=== PATIENT | female | born 1935 | race Caucasian/White ===

== ENCOUNTER 2018-04-11 19:43 | Emergency (ER) | payer MEDICARE, OTHER ==
[~2018-04-11] VITALS: Ht 160 cm; Wt 52.2 kg
[~2018-04-11 19:43] MED LIST: PREDNISONE20 MG PO
[2018-04-11] MEDS ORDERED: ALBUTEROL0.63 MG/3 INH (20:00)
[2018-04-11] MEDS ORDERED: LEVO-T25 MCG PO (20:01)
[2018-04-11] MEDS ORDERED: IPRAT-ALBUT 0.5-3 ML INH (20:02)
[2018-04-11] MEDS ORDERED: ADVAIR 250-501 EACH (20:02)
[2018-04-11] MEDS ORDERED: ADULT ASPIRIN81 MG PO (20:03)
[2018-04-11] MEDS ORDERED: VITAMIN D31000 UNIT PO (20:03)
[2018-04-11] MEDS ORDERED: VENTOLIN HFA18 GM INH (20:04)
[2018-04-11] MEDS ORDERED: LEVAQUIN500 MG PO (21:59)
[2018-04-11] MEDS ORDERED: PREDNISONE20 MG PO (21:59)
--- NOTE | 2018-04-12 07:12 | EKG ---
[facility] [address] [facility] [place] [address] Signed Normal sinus rhythm Biatrial enlargement Pulmonary disease pattern Abnormal ECG When compared with ECG of 21-FEB-2017 21:32, No significant change was found Confirmed by JOSÉ ANTONIO MENDEZ MD ([id number]) on 04/12/2018 7:12:26 AM Electronically Signed By: JOSÉ ANTONIO MENDEZ MD 04/12/18711 PATIENT NAME: FEDERICA MCCLELLAN Electrocardiogram DATE OF : 39 PHYSICIAN: JOSÉ ANTONIO MENDEZ MD REPORT #: [id number] REPORT IS CONFIDENTIAL AND NOT TO BE RELEASED WITHOUT AUTHORIZATION
== END 2018-04-11 22:30 | disposition home or self-care (01) ==
LOC: ED 19:43
DX: J44.1 Chronic obstructive pulmonary disease with (acute) exacerbation (principal); J44.0 Chronic obstructive pulmonary disease with (acute) lower respiratory infection; J20.9 Acute bronchitis, unspecified; Z87.891 Personal history of nicotine dependence; Z88.0 Allergy status to penicillin; Z88.8 Allergy status to other drugs, medicaments and biological substances; Z79.899 Other long term (current) drug therapy; Z79.82 Long term (current) use of aspirin; Z79.51 Long term (current) use of inhaled steroids
CPT/HCPCS: 71045; 80053; 83735; 84484; 85025; 93005; 93010; 94640; 96374; 99284; J2930

== ENCOUNTER 2019-04-20 05:27 | Emergency (ER) | payer MEDICARE, OTHER ==
[~2019-04-20] VITALS: Ht 162.6 cm; Wt 53.1 kg
[~2019-04-20 05:27] MED LIST changes: +ADULT ASPIRIN81 MG PO; +ADVAIR 250-501 EACH; +ALBUTEROL0.63 MG/3 INH; +IPRAT-ALBUT 0.5-3 ML INH; +LEVAQUIN500 MG PO; +LEVO-T25 MCG PO; +VENTOLIN HFA18 GM INH; +VITAMIN D31000 UNIT PO
== END 2019-04-20 07:45 | disposition home or self-care (01) ==
LOC: ED 05:27
DX: M54.5 Low back pain (principal); Z87.891 Personal history of nicotine dependence; Z90.49 Acquired absence of other specified parts of digestive tract; Z90.710 Acquired absence of both cervix and uterus; Z88.8 Allergy status to other drugs, medicaments and biological substances; Z88.6 Allergy status to analgesic agent; Z88.0 Allergy status to penicillin; Z79.899 Other long term (current) drug therapy; X58.XXXA Exposure to other specified factors, initial encounter
CPT/HCPCS: 72100; 81001; 99284-25

== ENCOUNTER 2019-10-24 18:36 | Emergency (ER) | payer MEDICARE, OTHER ==
[~2019-10-24] VITALS: Ht 162.6 cm; Wt 53.1 kg
[2019-10-24] MEDS ORDERED: CIPRO500 MG PO (20:51)
[2019-10-24] MEDS ORDERED: NORCO 5-325 TA1 EACH PO (20:51)
== END 2019-10-24 21:00 | disposition home or self-care (01) ==
LOC: ED 18:36
DX: N39.0 Urinary tract infection, site not specified (principal); R10.9 Unspecified abdominal pain; Z88.6 Allergy status to analgesic agent; Z88.0 Allergy status to penicillin; Z88.8 Allergy status to other drugs, medicaments and biological substances; Z79.899 Other long term (current) drug therapy; Z79.82 Long term (current) use of aspirin
CPT/HCPCS: 74176; 80053; 81001; 85025; 87077; 87088; 87186; 96374; 96375; 99284-25; J1170; J2405

== ENCOUNTER 2019-11-04 16:55 | Inpatient (IN) | payer MEDICARE, OTHER ==
[~2019-11-04] VITALS: Ht 162.6 cm; Wt 52.8 kg
[~2019-11-04 16:55] MED LIST changes: +ADULT ASPIRIN R81 MG PO; -ADULT ASPIRIN81 MG PO; -ADVAIR 250-501 EACH; +ADVAIR 250-501 EACH PO; +CIPRO500 MG PO; +LEVO-T25 MCG; -LEVO-T25 MCG PO; +NORCO 5-325 TA1 EACH PO
--- OUTSIDE RECORDS SUMMARY | 2019-11-04 16:58 | XMS ---
PreManage Notification: FEDERICA MCCLELLAN Security Appellate [address] Judge Events No recent Security Events currently on file CRITERIA MET - [facility] - 2 Visits in 30 Days CARE PROVIDERS There are no care providers on record at this time. Susu has no Care Guidelines for this patient. Ashish VISIT COUNT (12 MO.) [address] [facility] TOTAL 3 NOTE: Visits indicate total known visits. ED/C VISIT TRACKING (12 MO.) 11/04/2019 16:[address] [facility] [place] TYPE: Emergency COMPLAINT: - SOB 10/24/2019 18:37 [facility] [place] TYPE: Emergency COMPLAINT: - ABDOMINAL PAIN/CONSTIPATION DIAGNOSES: - Allergy status to analgesic agent status - Low back pain - Unspecified abdominal pain - Allergy status to penicillin - Other terminologist (current) drug therapy - Urinary tract infection, site not specified - Allergy status to oth drug/meds/biol subst status - senior living (current) use of aspirin 04/20/2019 05:27 [facility] [place] TYPE: Emergency COMPLAINT: - LOWER BACK PAIN NON INJURY DIAGNOSES: - Personal history of nicotine dependence - Acquired absence of both cervix and uterus - Allergy status to analgesic agent status - Allergy status to oth drug/meds/biol subst status - Other jail (current) drug therapy - Low back pain - Acquired absence of other specified parts of digestive tract - Exposure to other specified factors, initial encounter - Allergy status to penicillin INPATIENT VISIT TRACKING (12 MO.) No inpatient visits to display in this time frame [id number]
--- NOTE | 2019-11-04 21:00 | NUR ---
PT ADMITTED TO ROOM 122, A/O, REQUIRED STAFF TO PULL HER OVER D/T SOB ON EXERTION. IS ACCOMPAINED BY DAUGHTER RUPERT. PT USES 2L O2 CHRONICALLY, CURRENTLY ON 3L, STATES SHE WAS DOING HER NORMAL ROUTINE, TIL 11 AM TODAY, THEN BECAUSE SOB, DID RESCUE INHALERS, WITH NO HELP. CAME TO ED VIA AMBULANCE. PT IS FROM [place], LIVES ALONE, AND HAS FAMILY SUPPORT NEEDED. WEARS INCONT PRODUCTS, STATES SOMETIMES URINE COMES WITHOUT EVEN KNOWNING IT. HAS A MOIST NONPRODUCTIVE COUGH, QUIT SMOKING 12 YEARS AGO. HOB, AND FEET ELEVATED TO PT CHOICE. EDUCATED TO CALL LIGHT.
--- NOTE | 2019-11-04 22:38 | NUR ---
ASSISTED PT TO BSC, REQUIRED FREQUENT REST BREAKS DUE TO INCREASE OF SOB. ABLE TO SELF TRANSFER TO AND FROM COMMODE, CLEAN SELF WELL ADJUST CLOTHING. AGAIN, REQUIRED FREQUENT REST BREAKS PRIOR TO SETTLING INTO HER BED. CALL LIGHT WITHIN REACH. REFUSED FOOD UPON ADMISSION, DID REQUEST AND RECEIVE TYLENOL FOR HEADACHE.
--- NOTE | 2019-11-04 22:48 | NUR ---
ASSESSMENT COMPLETED. PT HAS A SMALL DIME SIZE ABRASION TO HER MID BACK ON HER SPINE. 2X2 ALLEVYN PLACED TO HER BACK. PT HAS NO REQUESTS AT THIS TIME. EDUCATED TO USE HER CALL LIGHT IF NEEDING ASSISTANCE OUT OF BED OR HER DEPENDS CHANGED. PT STATES UNDERSTANDING. PT GIVEN CALL LIGHT.
--- NOTE | 2019-11-05 00:15 | NUR ---
PT RESTING IN BED WITH EYES CLOSED. RESP EVEN AND UNLABORED. PT WEARING 3L VIA NC OF O2. BED RAILS UP, CALL LIGHT WITHIN REACH.
--- NOTE | 2019-11-05 01:08 | NUR ---
SHIFT REPORT RECIEVED FROM ANGELITO JAIME. PT RESTING IN BED, EYES CLOSED. RR 18, EVEN, UNLABORED. NC @ 3L. CALL LIGHT IN REACH.
--- NOTE | 2019-11-05 01:43 | NUR ---
PT CALLS TO USE BSC. UP TO BSC AND BACK TO BED. NC @ 3L. NO THER NEEDS, CALL LIGHT IN REACH.
--- NOTE | 2019-11-05 02:45 | NUR ---
ASSESSMENT, VS AND I&O COMPLETED. ICE WATER PROVIDED BY SONJA BOLANOS. LUNGS CLEAR. NC @3L. IV FLUIDS INFUSING PER ORDER. NO OTHER NEEDS, CALL LIGHT IN REACH.
--- NOTE | 2019-11-05 04:00 | NUR ---
PT RESTING IN BED, EYES CLOSED. RR 16, EVEN, UNLABORED. CALL LIGHT IN REACH.
--- NOTE | 2019-11-05 06:16 | NUR ---
PT AWAKE IN ROOM. SCHEDULED MED PROVIDED. NO OTHER NEEDS AT THIS TIME. CALL LIGHT IN REACH.
--- NOTE | 2019-11-05 07:35 | NUR ---
0708: Report recieved from Nai JAIME. Pt sleeping with her call gabriel within reach. Pt has NC o2 on at 3l at this time.
--- NOTE | 2019-11-05 07:45 | NUR ---
PATIENT UP TO BSC THEN TO CHAIR FOR BREAKFAST. HANDS AND FACE WASHED. CALL BUTTON IN REACH. LINENS CHANGED. NO OTHER NEEDS AT THIS TIME.
--- NOTE | 2019-11-05 08:06 | NUR ---
PT SITTING UP IN HER CHAIR RECEIVING A BREATHING TREATMENT. SHE STATES THAT HER BREATHING IS FEELING MUCH BETTER, AND THAT SHE SHE STILL FEELS WEAK BUT THAT IS ALSO IMPROVING. SHE DENIES ANY NEW PROBLEMS AT THIS TIME. CALL MACKENZIE WITHIN REACH AND SHE IS NOW WATCHING TV.
--- NOTE | 2019-11-05 11:20 | NUR ---
DISCUSSED COPD WITH PT. SHE STATES UNDERSTANDING OF HER DISEASE PROCESS, SHE STATES THAT IF SHE HAD HAD THE MEDICATIONS SHE NEEDED AT HOME SHE WOULD NEVER HAD TO COME TO THE HOSPITAL, HOPEFULLY, SHE STATED. PT SAID SHE WOULD BE INTERESTED IN THE CARDIOPULMONARY REHAB PROGRAM TO HELP INCREASE HER ACTIVITY AND HELP HER WITH BREATHING TECHNIQUES ETC. PT STATED SHE HAS NEVER SEEN THE MAGNET WITH THE ZONES ON IT. WE WENT OVER THE MAGNET IN DEPTH AND TALKED ABOUT HOW WE WILL BE ASKING HER WHAT ZONE SHE FEELS LIKE SHE IS IN. PT STATED UNDERSTANDING OF THIS. I TALKED WITH DR BURCH ABOUT HER PARTICIPATING IN THE CARDIOPULM REHAB AND HE ALSO THINKS THIS WOULD BE A GOOD PROGRAM FOR HER AND HE SAID HE WOULD WRITE THE ORDERS FOR THIS.
--- NOTE | 2019-11-05 11:25 | NUR ---
IV ATTEMEPT STARTED TO THE RIGHT FA AND THE SITE BLEW. OREDER GIVEN TO LEAVE THE FIELD START IN PLACE.
[2019-11-05] MEDS ORDERED: PROBIOTIC1 EAC1 PO (11:26)
--- NOTE | 2019-11-05 11:28 | NUR ---
Med rec completed.
--- NOTE | 2019-11-05 11:43 | NUR ---
PT AMBULATED TO THE BR WITH AN ASSIST ON 3L OF O2. AFTER HAVING A BM SHE WALKED BACK TO BED. SHE WAS STEADY ON HER FEET BUT HER RR IS INCREASED, SAT UPON RETURNING IS 90% AND AFTER A FEW MINUTES IS INCREASING. PT NOW WATCHING TV.
--- NOTE | 2019-11-05 13:15 | NUR ---
PT JUST VISITED WITH DR BURCH REGARDING HER CONDITION AND SHE STATES SHE FEELS BETTER AFTER SPEAKING WITH HIM. SHE STATES HER LARGEST CONCERN IS "MY LITTLE DOG". PT LIVES ALONE BUT STATES HER FAMILY IS ABLE TO HELP HER AND IS NOW WATCHING HER DOG. LUNG SOUNDS DECREASED THROUGHOUT AND HER RR IS 24 AT REST AND SHE STATES HER BREATHING FEELS LIKE IT IS IMPROVING. CALL MACKENZIE WITHIN REACH.
--- NOTE | 2019-11-05 13:59 | NUR ---
CICI SAMANTHA HAD JUST COME FROM PTS' RM AND SAID SHE IS READY FOR A NAP. I QUICKLY ENTERED HER RM ON HER APPROVAL AND INTRO MYSELF AND SAID I WILL RETURN AND LET HER REST. PT REQUESTED PRAYER BEFORE I LEFT. WILL FOLLOW NEEDED
--- NOTE | 2019-11-05 14:57 | NUR ---
PT RESTING IN HER BED WITH THE HOB ELEVATED AND SHE STATES HER BREATHING FEELS ABOUT THE SAME. SHE DENIES ANY NEW PROBLEMS. PT ASSISTED TO THE BR AND VOIDED AND IS NOW BACK TO BED. HER RR INCREASED TO 28 WITH ACTIVITY.
--- NOTE | 2019-11-05 15:41 | NUR ---
In and spoke with pt for assessment. Pt lives alone in [place]. Daughter lives 1.5 blocks away. Face times patient several times a day on [address]. Pt completes household tasks, cooks, and drives. Pt plans on discharging to home when able. Has Wc, walker, can, raised toilet seat, states she does not use or need any DME.
--- NOTE | 2019-11-05 16:44 | NUR ---
PT RESTING AT THE BEDSIDE AND SHE STATES HER SOB IS "GETTING BETTER". SHE DENIES ANY OTHER PROBLEMS AT THIS TIME.
--- NOTE | 2019-11-05 17:41 | NUR ---
PT VISITING WITH HER FAMILY AND SHE DENIES ANY NEW PROBLEMS.
--- NOTE | 2019-11-05 19:20 | NUR ---
SHIFT REPORT RECIEVED FROM CANDI JAIME. PT AWAKE IN ROOM, WATCHING TV. NC @ 3L. NO SOB REPORTED. PILLOW PROVIDED UNDER FEET PER PT REQUEST. NO OTHER NEEDS AT THIS TIME. CALL LIGHT IN REACH.
--- NOTE | 2019-11-05 19:28 | EKG ---
[facility] [address] [facility] [place] [address] Signed Sinus tachycardia Right atrial enlargement Rightward axis Pulmonary disease pattern Abnormal ECG When compared with ECG of 11-APR-2018 19:50, T wave inversion no longer evident in Anterior leads Confirmed by JEIMY BURCH MD ([id number]) on 11/05/2019 7:27:52 PM Electronically Signed By: JEIMY BURCH MD 11/05/19 1928 PATIENT NAME: FEDERICA MCCLELLAN Electrocardiogram DATE OF : 39 PHYSICIAN: JEIMY BURCH MD REPORT #: [id number] REPORT IS CONFIDENTIAL AND NOT TO BE RELEASED WITHOUT AUTHORIZATION
--- NOTE | 2019-11-05 20:32 | NUR ---
HELPED PT FROM THE BATHROOM TO HER BED. BEDSIDE TABLE AND CALL LIGHT IN REACH. VITALS AND I&OS DONE AND CHARTED. FRESH ICE WATER GIVEN.
--- NOTE | 2019-11-05 22:58 | NUR ---
ASSESSMENT COMPLETED. SCHEDULED MEDICATION PROVIDED. PT UP TO BR AND BACK TO BED. IV CDI, WNL, FLUSHED WELL. LUNG SOUNDS CLEAR. NC @3L. CAPILLARY REFILL <3 SECONDS. SKIN WPD. NO OTHER NEEDS AT THIS TIME. CALL LIGHT IN REACH.
--- NOTE | 2019-11-06 00:12 | NUR ---
HELPED PT TO THE BATHROOM AND BACK TO BED. BEDSIDE TABLE AND CALL LIGHT IN REACH. PT NEEDS NOTHING MORE AT THIS TIME.
--- NOTE | 2019-11-06 01:24 | NUR ---
PT CALLS TO USE THE BR. UP TO BR, SBA. BACK TO BED. IV MEDICATION RESUMED WITH NEW IV PLACED BY FRANCIA JAIME. ICE WATER PROVIDED. NO OTHER NEEDS, CALL LIGHT IN REACH.
--- NOTE | 2019-11-06 01:49 | NUR ---
IV PUMP ALARMING. IV MEDICATION COMPLETE. IV SALINE LOCKED. PT REPORTS 5/10 HEADACHE. PRN PAIN MED PROVIDED. NO OTHER NEEDS. CALL LIGHT IN REACH.
--- NOTE | 2019-11-06 02:41 | NUR ---
PT RESTING IN BED, EYES CLOSED. RR 18, EVEN, UNLABORED. CALL LIGHT IN REACH.
--- NOTE | 2019-11-06 05:09 | NUR ---
PT RESTING IN BED, EYES CLOSED. RR 18, EVEN, UNLABORED. CALL LIGHT IN REACH.
--- NOTE | 2019-11-06 06:46 | NUR ---
PT HAS SLEPT OFF AND ON THIS SHIFT. NEW IV PLACED IN RIGHT HAND, CDI, WNL, FLUSHED WELL. PT TOLERATED IV MEDICATIONS WELL. NC @ 3L, SPO2 TRENDING IN LOW TO MID 90S. LUNG SOUNDS CLEAR IN ALL LOBES AND DIMINISHED IN BILATERAL LOWER LOBES. PT COMPLAINED OF ELLIS THAT WAS RESOLVED WITH PRN PAIN MED. PT IS 1PA, SBA TO BR. SHE STILL EXHIBITS MILD SOB WITH ACTIVITY. CAPILARY REFIL < 3 SECONDS, SKIN WPD. UO SUFFICIENT, VSS. A&OX4, GCS 15.
--- NOTE | 2019-11-06 06:47 | NUR ---
ASSESSMENT COMPLETED. SCHEDULED MED PROVIDED. NO OTHER NEEDS AT THIS TIME. CALL LIGHT IN REACH.
--- NOTE | 2019-11-06 07:15 | NUR ---
REPORT RECEIVED FROM [facility] SHIFT RN. PT IN BED. 3L NC IN [place]. RESPIRAITONS EQUAL. CALL LIGHT IN REACH.
--- NOTE | 2019-11-06 10:16 | NUR ---
STAND BY GUARD TO BATHROOM INDEPENDENTLY. 3L NC IN PLACE. PT WITH SOME LABORED BREATHING WITH ACTIVITY. BACK TO BED, PT REPORTS SHE DID NOT SLEEP WELL LAST NIGHT. LUNGS DIM IN THE BASES WITH SMALL AMOUNT OF FINE CRACKLES. CALL LIGHT AND PERSONAL ITEMS AND CALL LIGHT IN REACH.
--- NOTE | 2019-11-06 12:00 | NUR ---
DR BURCH IN TO ROUND ON PT. PLAN OF CARE DISCUSSED. SBA TO CHAIR FOR LUNCH. 3L NC IN PLACE. ACCESSORY MUSCLES USED WITH BREATHING. RR 20. BREATHING TREATMENT ADMINISTERED.
--- NOTE | 2019-11-06 14:57 | NUR ---
Attempted to see pt x 2 and she is on the phone both visits. Will see her tomorrow.
--- NOTE | 2019-11-06 15:35 | NUR ---
PHYSICAL THERAPY IN TO EVALUATE PT.
--- NOTE | 2019-11-06 17:00 | NUR ---
PT SITTING UP WITH DINNER. DENIES NEEDS OR PAIN. CALL LIGHT IN REACH.
--- NOTE | 2019-11-06 20:00 | NUR ---
PATIENT RESTING IN BED WATCHING TV AT THIS TIME AND HAS NO CURRENT NEEDS. WILL BE BACK TO ASSESS. CALL LIGHT IN REACH, WATER IN REACH. PATIENT'S DOOR AND CURTAIN LEFT OPEN AT HER REQUEST.
--- NOTE | 2019-11-06 21:43 | NUR ---
VITALS AND I&OS DONE AND CHARTED. FRESH ICE WATER AND LOTION GIVEN PER PT REQUEST. BEDSIDE TABLE AND CALL LIGHT IN REACH.
--- NOTE | 2019-11-06 22:48 | NUR ---
HELPED PT TO THE BATHROOM AND BACK TO BED. BEDSIDE TABLE AND CALL LIGHT IN REACH. PT NEEDS NOTHING MORE AT THIS TIME.
--- NOTE | 2019-11-07 01:03 | NUR ---
PATIENT RESTING QUIETLY ON HER 3L/NC IN SEMI FOWLERS POSITION, DOOR AND CURTAIN OPEN AT PATIENT REQUEST. EYES CLOSED, RESPIRATIONS REGULAR AND EVEN AND CALL LIGHT AND PO FLUIDS IN REACH.
--- NOTE | 2019-11-07 02:43 | NUR ---
PATIENT RESTING QUIETLY ON HER 3/L NC IN HI-FOLERS POSITION TURNED TO HER RIGHT, EYES CLOSED, RESPIRATIONS REGULAR AND EVEN, CALL LIGHT IN REACH.
--- NOTE | 2019-11-07 04:45 | NUR ---
PATIENT HAS RESTED WELL MOST OF THE NIGHT WITH NO C/O PAIN ON HER 3L/NC. PATIENT HAD ME REMOVE DRESSING FROM HER BACK IT WAS GETTING REALLY ITCHY AND THERE WAS JUST SOME SLIGHT REDNESS UNDERNEATH THE DRESSING. PATIENT SL FLUSHES WELL. PATIENT TRYS TO BE VERY INDEPENDANT, BUT CALLS APPROPRIATELY SO THERE IS SOMEONE IN THE ROOM WHEN SHE USES THE RESTROOM. PATIENT WAS SITTING UP ON THE SIDE OF THE BED READING AFTER JUST WALKING HER TO THE 1PSBA TO THE BATHROOM AND BACK. CALL LIGHT IN REACH.
--- NOTE | 2019-11-07 07:10 | NUR ---
Recieved report. Patient lying in bed alert and oriented with daughter in room. Patient reported sleeping well overnight. Saline locked, call light in reach.
--- NOTE | 2019-11-07 09:30 | NUR ---
PATIENT WITH STAFF AT THIS TIME. WILL RETURN LATER.
--- NOTE | 2019-11-07 10:27 | NUR ---
PT IS ON 3L OF O2. PT HAD NEB TREATMENT @ 0745. PT DID NOT EAT MUCH BREAKFAST. MADE PT'S BED WHILE PT READ NEWPAPER IN CHAIR. PT TOLERTATED SHOWER WELL. PT' VS WERE STABLE ORERED PT LUNCH. PT IS BACK IN BED, CALL LIGHT NEAR BY.
--- NOTE | 2019-11-07 10:30 | NUR ---
ASSESSMENT COMPLETED. LUNGS TIGHT WITH SOME EXW. PT IS ALERT AND ORIENTED, DENIES PAIN, 3L NC IN PLACE.
--- NOTE | 2019-11-07 12:00 | NUR ---
PT WORKING WITH PHYSICAL THERAPY. ABLE TO AMBULATE [address]ES[address] 3L NC IN PLACE. PT BACK TO BED. LUNCH AT BEDSIDE. CALL LIGTH IN REACH.
--- NOTE | 2019-11-07 12:28 | NUR ---
PT SITTING IN CHAIR, TALKING ON PHONE PT REQUESTED A COME BACK LATER. WILL FOLLOW NEEDED
--- NOTE | 2019-11-07 14:30 | NUR ---
PT IN BED WATCHING TV. DENIES SOB. 3L NC IN PLACE CALL LIGHT IN REACH.
--- NOTE | 2019-11-07 17:00 | NUR ---
PT SITTING UP IN BED EATING DINNER. CALL LIGHT IN REACH. DENEIS NEEDS.
--- NOTE | 2019-11-07 18:45 | NUR ---
PT HAD GOOD DAY. ON CHRON 3L NC. NEB TREATMENTS SCHEDULED. WORKING WELL WITH PT. UO QS.
--- NOTE | 2019-11-07 20:24 | NUR ---
PATIENT IV PAIN FULL AND LEAKING WHEN FLUSHED, CALLED AND VERBAL ORDERS GIVEN TO TAKE OUT IV AND LEAVE IT OUT. THIS WAS DONE.
--- NOTE | 2019-11-07 22:30 | NUR ---
ROOM SERVICE FOOD SERVER ROUNDING NOTE. PT UP TO BATHROOM AND BACK TO BED WITH SBA. TOLERATED WELL. DENIES QUESTIONS OR CONCERNS AT THIS TIME. CALL LIGHT IN REACH. WHITE BOARD UPDATED
--- NOTE | 2019-11-07 22:30 | NUR ---
TRACTOR DRIVER TEAMSTER TOOK PATIENT 1PSBA TO THE REST ROOM AND BACK TO BED PER CHARGE NURSES REPORT.
--- NOTE | 2019-11-07 23:41 | NUR ---
PATIENT RESTING QUIETLY IN HIGH FOWLERS POSITION ON HER 3L/NC, EYES CLOSED, RESPIRATIONS REGULAR AND EVEN. WATER AND CALL LIGHT IN REACH.
--- NOTE | 2019-11-08 02:00 | NUR ---
PATIENT RESTING QUIETLY, EYES CLOSED, ON 3L/NC AND RESPIRATIONS REGULAR AND EVEN. CALL LIGHT IN REACH.
--- NOTE | 2019-11-08 04:15 | NUR ---
PATIENT RESTING QUIETLY ON HER 3L/NC, EYES CLOSED, RESPIRATIONS REGULAR AND EVEN. CALL LIGHT IN REACH.
--- NOTE | 2019-11-08 06:00 | NUR ---
PATIENT AWAKE HAS VOIDED WELL THOUGH THE NIGHT ORDERS GIVENTO LEAVE IV OUT AT BEGINING OF SHIFT FROM WHEN IV STARTED LEAKING. PATIENT SAYS SHE HAD A GOOD NIGHT AND A GOOD NIGHTS SLEEP.
--- NOTE | 2019-11-08 07:59 | NUR ---
Patient sitting up in bed alert and oriented talking to daughter on phone. Patient reports sleeping well through the night. Discussed with patient getting up to chair for breakfast.
--- NOTE | 2019-11-08 10:30 | NUR ---
Patient up in chair visiting with daughter and son-in-law and finishing breakfast. Patient on 3L NC, sats 94% Call light in reach.
--- NOTE | 2019-11-08 12:20 | NUR ---
Patient up in bed completing NEB treatment. Bed rails up and call light within reach.
--- NOTE | 2019-11-08 14:00 | NUR ---
pt sitting up in bed, 3l nc in place. alert and oriented. call light in reach. enies needs.
--- NOTE | 2019-11-08 16:00 | NUR ---
PT SITTING IN BED, 3L NC IN PLACE. DENIES NEEDS. CALL LIGHT IN [facility]
--- NOTE | 2019-11-08 19:30 | NUR ---
PATIENT SITTING QUIETLY IN BED WATCHING TV WITH NO NEEDS AT THIS TIME. CALL LIGHT IN REACH.
--- NOTE | 2019-11-08 20:29 | NUR ---
COAGULATING DRYING SUPERVISOR ROUNDING NOTE. PT ASSISTED TO THE BATHROOM, WOULD LIKE TIME IN THE BATHROOM. AGREES TO USE CALL LIGHT IN BATHROOM WHEN SHE IS FINISHED. DENIES FURTHER QUESTIONS, CONCERNS, OR NEEDS AT THIS TIME. CALL LIGHT IN REACH.
--- NOTE | 2019-11-08 23:00 | NUR ---
PATIENT RESTING QUIETLY, EYES CLOSED, RESPIRATIONS REGULAR AND EVEN, CALL LIGHT IN REACH.
--- NOTE | 2019-11-09 00:52 | NUR ---
PATIENT RESTING QUIETLY IN SEMI-FOWLERS POSITION, EYES CLOSED, RESPIRATIONS SHALLOW, BUT REGULAR ON HER 3L/NC. CALL LIGHT IN REACH.
--- NOTE | 2019-11-09 02:36 | NUR ---
PATIENT RESTING QUIETLY, ON LEFT SIDE AND RESPIRATIONS ARE REGULAR AND EVEN, EYES CLOSED, AND CALL LIGHT IN REACH.
--- NOTE | 2019-11-09 05:00 | NUR ---
PATIENT SAYS SHE DIDN'T SLEEP WELL TONIGHT SHE DID LAST NIGHT, JUST COULDN'T GET TO SLEEP, ALTHOUGH SHE APPEARED TO BE SLEEPING MULTIPLE TIMES WHEN I CHECKED ON HER LAST NIGHT. PATIENT IS PLANNING ON GOING HOME TODAY AND SHE REMAINS WITHOUT AN IV AND ON HER CHRONIC 3L/NC FOR 02 SUPPORT. CALL LIGHT IN REACH AND WATER GLASS IN REACH.
--- NOTE | 2019-11-09 07:39 | NUR ---
PAtient lying in bed with eyes open. Patient on RA, SATS above 94. Bed alarm activated and call light within reach.
--- NOTE | 2019-11-09 07:41 | NUR ---
PAtient sitting up in bed using tablet. 3L NC, denies pain. Call light in reach. Denies needs.
--- NOTE | 2019-11-09 07:46 | NUR ---
patient is awake, recieving breathing treatment from RT now, patient expected to DC home today
[2019-11-09] MEDS ORDERED: BUDESONIDE0.5 MG/2 M INH (11:43)
[2019-11-09] MEDS ORDERED: CEFUROXIME500 MG PO (11:43)
--- NOTE | 2019-11-09 12:30 | NUR ---
Patient sitting on edge of bed eating lunch. States that lower back pain has improved with medication (tylenol). States that she is feeling less anxious than reported earlier in the morning. Patient attributes anxiety to elevated blood pressure readings. Nurse reassured patient that elevated readings were not concerning to physician which helped ease anxieties. PAtient reciening 3L O2 NC. Call light within reach. Patient awaiting potential discharge orders.
--- NOTE | 2019-11-09 13:44 | NUR ---
NOTIFIED JOSUÉ WITH RESPIRATORY THERAPY OF PT DISCHARGE AND PHARMACY JADON.
--- NOTE | 2019-11-10 13:16 | NUR ---
FAXED PT, OT, NURSING ORDERS ALONG WITH H&P, DISCHARGE SUMMARY, PT AND OT EVAL TO [facility]. FAX WAS NOT GOING THRU TO [facility]. SCANNED DOCUMENTS AND SENT SECURE EMAIL TO SUZY NOLASCO, AND MIKEY AT [facility]. CHW CALLED AND SPOKE WITH MIKE AT [facility] [phone] SHE STATED SHE DID RECEIVE THE SECURE EMAIL. SHE WOULD CALL BACK IF SHE HAD ANY PROBLEMS OPENING THE EMAIL. WAS LEAVING FOR HER LUNCH, AND WAS CURRENTLY LOCKED OUT OF HER SECURE EMAIL LOGIN.
== END 2019-11-09 14:10 | disposition home health service (06) | DRG 193 ==
LOC: ED 16:55 → MS 16:56
PROVIDERS: ADMIT Internal Medicine
DX: J15.4 Pneumonia due to other streptococci (principal); J96.21 Acute and chronic respiratory failure with hypoxia; J44.0 Chronic obstructive pulmonary disease with (acute) lower respiratory infection; R65.10 Systemic inflammatory response syndrome (SIRS) of non-infectious origin without acute organ dysfunction; J44.1 Chronic obstructive pulmonary disease with (acute) exacerbation; I10 Essential (primary) hypertension; E03.9 Hypothyroidism, unspecified; Z66 Do not resuscitate; Z99.81 Dependence on supplemental oxygen; Z87.891 Personal history of nicotine dependence; Z88.0 Allergy status to penicillin; Z88.8 Allergy status to other drugs, medicaments and biological substances; Z79.82 Long term (current) use of aspirin; Z79.51 Long term (current) use of inhaled steroids; Z79.899 Other long term (current) drug therapy
CPT/HCPCS: 36415; 51701; 71045; 80053; 81001; 83605; 84484; 85025; 85379; 87502; 93005; 93010; 94640; 94667; 94668; 94760; 97110; 97116; 97162; 97165; 99285-25; J0456; J0696; J1650; J7060; J7121

== ENCOUNTER 2020-05-29 15:52 | Emergency (ER) | payer MEDICARE, OTHER ==
[~2020-05-29] VITALS: Ht 162.6 cm; Wt 52.6 kg
[~2020-05-29 15:52] MED LIST changes: +BUDESONIDE0.5 MG/2 M INH; +CEFUROXIME500 MG PO; +PROBIOTIC1 EAC1 PO
[2020-05-29] MEDS ORDERED: POTASSIUM CHLO10 ME1 PO (16:06)
[2020-05-29] MEDS ORDERED: FLUTICASONE-SA1 EAC4 INH (16:06)
[2020-05-29] MEDS ORDERED: FUROSEMIDE20 MG PO (16:06)
--- NOTE | 2020-05-30 21:21 | EKG ---
[facility] [address] [facility] [place] [address] Signed Suspect arm lead reversal, interpretation assumes no reversal Normal sinus rhythm Biatrial enlargement Rightward axis Pulmonary disease pattern Abnormal ECG When compared with ECG of 04-NOV-2019 17:12, T wave amplitude has decreased in Anterior leads T wave amplitude has increased in Lateral leads Confirmed by JEIMY BURCH MD ([id number]) on 05/30/2020 9:21:36 PM Electronically Signed By: JEIMY BURCH MD 05/30/202120 PATIENT NAME: EFREM MCCLELLAN Electrocardiogram DATE OF : 39 PHYSICIAN: JEIMY BURCH MD REPORT #: [id number] REPORT IS CONFIDENTIAL AND NOT TO BE RELEASED WITHOUT AUTHORIZATION
== END 2020-05-29 19:31 | disposition home or self-care (01) ==
LOC: ED 15:52
DX: R10.9 Unspecified abdominal pain (principal); J44.9 Chronic obstructive pulmonary disease, unspecified; Z99.81 Dependence on supplemental oxygen; Z87.891 Personal history of nicotine dependence; Z88.6 Allergy status to analgesic agent; Z88.8 Allergy status to other drugs, medicaments and biological substances; Z88.0 Allergy status to penicillin; Z79.899 Other long term (current) drug therapy; Z79.82 Long term (current) use of aspirin
CPT/HCPCS: 74177; 80053; 81001; 83690; 85025; 93005; 93010; 96375; 99284-25; J1170; J2405; J7040

== ENCOUNTER 2021-03-21 13:42 | Emergency (ER) | payer MEDICARE, OTHER ==
[~2021-03-21] VITALS: Ht 162.6 cm; Wt 45.4 kg
[~2021-03-21 13:42] MED LIST changes: +FLUTICASONE-SA1 EAC4 INH; +FUROSEMIDE20 MG PO; +POTASSIUM CHLO10 ME1 PO
== END 2021-03-21 17:39 | disposition home or self-care (01) ==
LOC: ED 13:42
DX: R13.10 Dysphagia, unspecified (principal); J44.9 Chronic obstructive pulmonary disease, unspecified; Z87.891 Personal history of nicotine dependence; Z88.6 Allergy status to analgesic agent; Z88.0 Allergy status to penicillin; Z88.8 Allergy status to other drugs, medicaments and biological substances; Z79.899 Other long term (current) drug therapy; Z79.52 Long term (current) use of systemic steroids
CPT/HCPCS: 70491; 71260; 80048; 99284-25; Q9967

== ENCOUNTER 2022-06-16 11:33 | Inpatient (IN) | payer MEDICARE, OTHER ==
[~2022-06-16] VITALS: Ht 162.6 cm; Wt 41.5 kg
[~2022-06-16 11:33] MED LIST changes: -LEVO-T25 MCG; +LEVO-T25 MCG PO; -VITAMIN D31000 UNIT PO; +VITAMIN D325 MCG PO
--- NOTE | 2022-06-17 07:34 | EKG ---
[facility] [address] [facility] [place] [address] Signed Normal sinus rhythm Right atrial enlargement Borderline ECG No previous ECGs available Confirmed by JOSÉ ANTONIO MENDEZ MD ([id number]) on 06/17/2022 7:34:38 AM Electronically Signed By: JOSÉ ANTONIO MENDEZ MD 06/17/22 0734 PATIENT NAME: EFREM MCCLELLAN LAI Electrocardiogram DATE OF : 39 PHYSICIAN: JOSÉ ANTONIO MENDEZ MD REPORT #: [id number] REPORT IS CONFIDENTIAL AND NOT TO BE RELEASED WITHOUT AUTHORIZATION
[2022-06-18] MEDS ORDERED: FLONASE ALLERG9.9 ML NAS (11:22)
[2022-06-18] MEDS ORDERED: MULTI VITAMIN1 EACH PO (11:23)
[2022-06-18] MEDS ORDERED: VITAMIN C250 M1 PO (11:23)
[2022-06-20] MEDS ORDERED: LEVETIRACETAM500 MG PO (16:13)
== END 2022-06-21 13:00 | DRG 66 ==
LOC: ED 11:33 → MS 20:12
PROVIDERS: ADMIT Internal Medicine; ATTEND Internal Medicine
DX: I62.01 Nontraumatic acute subdural hemorrhage (principal); I60.9 Nontraumatic subarachnoid hemorrhage, unspecified; J44.9 Chronic obstructive pulmonary disease, unspecified; Z99.81 Dependence on supplemental oxygen; E03.9 Hypothyroidism, unspecified; G83.14 Monoplegia of lower limb affecting left nondominant side; Z66 Do not resuscitate; Z88.0 Allergy status to penicillin; Z88.8 Allergy status to other drugs, medicaments and biological substances; Z90.710 Acquired absence of both cervix and uterus; Z85.828 Personal history of other malignant neoplasm of skin; Z96.643 Presence of artificial hip joint, bilateral; Z79.899 Other long term (current) drug therapy; Z79.82 Long term (current) use of aspirin; Z79.51 Long term (current) use of inhaled steroids; Z20.822 Contact with and (suspected) exposure to COVID-19
CPT/HCPCS: 36415; 70450; 70496; 70498; 71045; 73502; 80048; 80053; 81001; 83735; 84100; 84484; 85025; 85610; 85730; 87088; 87186; 87502; 92610; 94640; 94760; 97110; 97162; 97166; 97530; 97535; A9270; C9803; J0696; J1953; J3480; Q9967; U0003

== ENCOUNTER 2022-09-19 07:47 | Day surgery (SDC) | payer MEDICARE, OTHER ==
[~2022-09-19] VITALS: Ht 162.6 cm; Wt 42.7 kg
[~2022-09-19 07:47] MED LIST changes: +FLONASE ALLERG9.9 ML NAS; +LEVETIRACETAM500 MG PO; +MULTI VITAMIN1 EACH PO; +VITAMIN C250 M1 PO
--- NOTE | 2022-09-19 10:27 | NUR ---
1006: PATIENT BACK IN DAY SURGERY DIRECTLY FROM OR. VS CHECKED. PATIENT DENIES PAIN AT SURGICAL SITE. LEFT NOSE SURGICAL SITE WNL. OINTMENT COVERING STITCHES. NO DRESSING. DAUGHTER AT BEDSIDE. CALL LIGHT WITHIN REACH. 1015: WATER GIVEN TO PATIENT. 1024: DISCHARGE INSTRUCTIONS GIVEN TO PATIENT AND DAUGHTER. DAUGHTER ASSISTING PATIENT TO GET DRESSED.
--- NOTE | 2022-09-19 10:38 | NUR ---
1037: PATIENT DRESSED AND READY TO GO. DISCHARGED TO HOME VIA PERSONAL WHEELCHAIR WITH DAUGHTER.
--- NOTE | 2022-09-19 17:08 | OR ---
[facility] [address] [place], [place] [address] Signed DATE OF OPERATION: 09/19/2022 SURGEON: Hair Neff MD PREOPERATIVE DIAGNOSIS: Left nasal skin lesion. POSTOPERATIVE DIAGNOSIS: Left nasal skin lesion. PROCEDURE: Excision of left nasal skin lesion with complex closure. ANESTHESIA: Local standby. PREOPERATIVE HISTORY: Beulah is an 87-year-old young lady with ulcerated crusted lesion on the left nasal skin just above the ala. This is very suspicious for neoplasia and she is taken to the operating room for the above-mentioned procedure. OPERATIVE PROCEDURE AND FINDINGS: After informed consent, the patient was taken to the operating room, placed in a semi-sitting position. Monitoring was performed. The patient and procedure were verified. The left nasal skin was prepped with Betadine, sterile drapes. The lesion in question was just above the alar rim measured about cm in greatest dimension, extending along the alar rim. After sterile prep and drape, 1% lidocaine with epi was injected in a field type block, a total of 2 mL. Excision was then performed with margins elliptical in an anterior-posterior direction. The lesion appeared to be completely removed. There was a separate satellite lesion about 2 mm in dimensions above towards the midline of the nose above the excision site. This was not included in the excision. The wound edges were elevated to allow for a tension free closure. Hemostasis was obtained with needle point cautery after turning off the nasal cannula oxygen. Hemostasis was verified. The wound was then closed with 4-0 interrupted Vicryl subcu and 5-0 running nylon on the skin. Excellent cosmetic closure was obtained. Hemostasis was verified. Neosporin was applied after cleansing the skin. The patient was then transported back to same day in good condition. No complications. BLOOD LOSS: Minimal. Electronically Signed By: HAIR NEFF MD 09/19/22 8959 PATIENT NAME: MCCLELLANBEULAH OPERATIVE REPORT DATE OF : 39 REPORT #: [id number] PHYSICIAN: HAIR NEFF MD PCP: CURTIS CARLOS REPORT IS CONFIDENTIAL AND NOT TO BE RELEASED WITHOUT AUTHORIZATION [address] [address] Signed SPECIMEN: To pathology was with a suture in the superior margin. Hair Neff MD /MODL /[id number] Copies: ~ Electronically Signed By: HAIR NEFF MD 09/19/22 1708 PATIENT NAME: BEULAH MCCLELLAN OPERATIVE REPORT DATE OF : 39 REPORT #: [id number] PHYSICIAN: HAIR NEFF MD PCP: CURTIS CARLOS REPORT IS CONFIDENTIAL AND NOT TO BE RELEASED WITHOUT AUTHORIZATION
--- NOTE | 2022-09-21 12:55 | PATH ---
[facility] [place] [facility] [address], [place] [address] Signed SPECIMEN(S): A LEFT NASAL SPECIMEN SOURCE: A. LEFT NASAL CLINICAL HISTORY: Left nasal skin lesion FINAL PATHOLOGIC DIAGNOSIS: Left nasal: - Basal cell carcinoma, nodular-type, transected at the peripheral and deep surgical margins. - See comment. COMMENT: The tumor extends to all of the peripheral surgical margins including the end cuts and focally extends to the deep lateral margin in the mid 12-3-6 o'clock edge. JVR:[id number] MICROSCOPIC EXAMINATION: Histologic sections of all submitted blocks are examined by light microscopy. These findings, together with the gross examination, support the pathologic diagnosis. GROSS DESCRIPTION: The specimen, labeled and designated "Beulah Zhou A" and designated on the requisition as "left nasal skin lesion stitch hurley superior margin"," is received in formalin and consists of a somewhat ellipsoid, ragged, bumpy, roman-white to brown, 1.2 x 0.7 x 0.5 cm skin ellipse that is oriented with a suture along 1 white edge designated "superior". For the purpose of this dictation the sutures are currently designated 9:00. The specimen is inked as follows: 12:00-3:00-6:00 = blue; 6:00-9:00 = red; 9:00-4:00 = green. The skin surface is markedly ragged and bumpy but without a discrete mass/lesion. The specimen is sectioned from 12:00 to 6:00 to reveal homogenous, yellow, grossly unremarkable subcutaneous tissue. The specimen is submitted entirely as follows: Cassette Summary: (A1) tips (A2) remaining specimen PATIENT NAME: BEULAH ZHOU PATHOLOGY DATE OF : 39 REPORT #: [id number] PHYSICIAN: LEANNE CABELLO PCP: CURTIS CARLOS REPORT IS CONFIDENTIAL AND NOT TO BE RELEASED WITHOUT AUTHORIZATION [facility] [address], [place] [address] Signed AI (under the direct supervision of a pathologist) 09/20/2022 The Gross Description was prepared using a voice recognition system. The report was reviewed for accuracy; however, sound-alike word errors, addition and/or deletions may occur. If there is any question about this report, please contact Client Services. PERFORMING LABORATORY: The technical component was performed by [facility], [address] [place] [address] (CLIA# [id number]). Professional interpretation was performed by [facility], [address] [place] [id number] (CLIA#: [id number]). Diagnostician: Lars Galvez MD Pathologist Electronically Signed 09/21/2022 Copies: ~ PATIENT NAME: BEULAH ZHOU PATHOLOGY DATE OF : 39 REPORT #: [id number] PHYSICIAN: LEANNE CABELLO PCP: CURTIS CARLOS REPORT IS CONFIDENTIAL AND NOT TO BE RELEASED WITHOUT AUTHORIZATION
== END 2022-09-19 10:37 | disposition home or self-care (01) ==
LOC: OPS 07:47 → DS 07:47 → OPS 09:00
PROVIDERS: ATTEND Otolaryngology
PROC: 0HB1XZZ Excision of Face Skin, External Approach (ICD-10-PCS; principal; 2022-09-19 09:00)
DX: C44.311 Basal cell carcinoma of skin of nose (principal); Z88.0 Allergy status to penicillin; E03.9 Hypothyroidism, unspecified; J44.9 Chronic obstructive pulmonary disease, unspecified
CPT/HCPCS: 88305

== ENCOUNTER 2022-12-20 07:44 | Inpatient (IN) | payer MEDICARE, OTHER ==
[~2022-12-20] VITALS: Ht 162.6 cm; Wt 40.9 kg
[2022-12-20] MEDS ORDERED: LASIX20 MG PO (08:43)
[2022-12-20] MEDS ORDERED: POTASSIUM CHLO10 MEQ PO (08:44)
--- NOTE | 2022-12-20 09:45 | NUR ---
BEDSIDE REPORT RECIEVED AT THIS TIME IN THE ER WITH RN RASHMI. TWO NURSE SKIN ASSESSMENT COMPLETED AT THIS TIME. PT TRANSPORTED TO CCU BY THIS RN ON MACHINE WORKER AND 3 L O2 NC. PT DAUGHTER WITH PT FOR TRANSPORT. PT TRANSFERED FROM STRETCHER TO BED BY TWO RNS WITH SLIDER SHEET WELL TOLERATED.
--- NOTE | 2022-12-20 10:45 | NUR ---
ADMISSION ASSESSMENT COMPLETED. PT ALERT AND ORIENTED X4, ANSWERING ALL QUESTIONS APPROPRIATELY. TIGHTNESS AND EXPIRATORY WHEEZE NOTED UPON LUNG AUSCULTATION. PT'S RESPIRATIONS IN THE MID 20S AT REST. PT REPORTS STILL FEELING SHORT OF BREATH AND ANXIETY ABOUT FALLING ASLEEP BECAUSE SHE IS AFRAID. THERAPEUTIC COMMUNICATION AT THIS TIME. PT HAS BRUISING ON BILATERAL ARMS AND LEGS AND REDNESS ON COCCYX. SECONDARY TWO NURSE SKIN ASSESSMENT COMPLETED WITH YENI MCCLELLAN. PERICARE PROVIDED AT THIS TIME AND CLEAN DEPENDS IN PLACE. LEFT FOREARM IV INFILTRATED. NEW IV STARTED AT THIS TIME ON LATERAL SIDE OF LEFT WRIST. PT REMAINS IN SINUS TACHYCARDIA. PLAN OF CARE ESTABLISHED WITH PT AND DAUGHTER. CALL LIGHT WITHIN REACH. WILL CONTINUE TO CLOSELY MONITOR.
--- NOTE | 2022-12-20 11:30 | NUR ---
DR BURCH IN ROOM AT THIS TIME TO ASSESS PT. ADMISSION ORDERS RECEIVED AT THIS TIME.
--- NOTE | 2022-12-20 12:37 | NUR ---
IV FLUIDS AND MAGNESIUM NOW INFUSING. PT HEART RATE 100-105 AT REST/ S[P2 = 96% ON 3 L NC. PT'S SHORTNESS OF BREATH LESS VISIBLE. MILD STERNAL RETRACTIONS NOTED. CALL LIGHT WITHIN REACH. WILL CONTINUE TO MONITOR.
--- NOTE | 2022-12-20 14:32 | NUR ---
PATIENT SITTING IN BED WATCHING TV, BRIEF CHECKED, STILL DRY, NO URGE TO URINATE. RN AWARE. CALL LIGHT IN EASY REACH
--- NOTE | 2022-12-20 14:44 | NUR ---
PT ALERT, ORIENTED AND LAYING IN BED WATCHING TV. PT PLEASANT, THANKED ME FOR COMING BY. EACH BREATH IS A STRUGGLE. GAVE ENCOURAGEMENT, PT REQUESTED I "PUT IN A GOOD WORD FOR HER TO THE MAN UPSTAIRS". HAD PRAYER WITH PT, GAVE UMU AND TAMELA. WILL FOLLOW
--- NOTE | 2022-12-20 15:00 | NUR ---
BLADDER SCAN USED, 200ML NOTED. RN AWARE.
--- NOTE | 2022-12-20 15:11 | NUR ---
PT REPOSITIONED IN BED. DENIES THE NEED TO VOID. DEPENDS DRY. IV FLUIDS, CALL LIGHT WITHIN REACH. NO FURTHER NEEDS AT THIS TIME.
--- NOTE | 2022-12-20 15:34 | NUR ---
PATIENT WAS INCONTINENT 100ML OF URINE, BRIEF WEIGHED AND CHARTED.
--- NOTE | 2022-12-20 15:51 | NUR ---
REPORT GIVEN TO YENI ALMONTE ON THE MEDICAL FLOOR AT THIS TIME. PT TRANSPORTED TO THE MEDICAL FLOOR. ALL BELONGINGS SENT HOME WITH DAUGHTER PRIOR TO PT'S TRANSFER TO THE MEDICAL FLOOR.
[2022-12-20] MEDS ORDERED: ADULT LOW DOSE81 MG PO (16:04)
--- NOTE | 2022-12-20 16:20 | NUR ---
pt settled in to room 122 from ccu - oriented to call light and remote - menu provided and vitals taken.
--- NOTE | 2022-12-20 16:44 | EKG ---
[facility] [address] [facility] [place] [address] Signed Sinus tachycardia Biatrial enlargement Rightward axis Pulmonary disease pattern Abnormal ECG When compared with ECG of 16-JUN-2022 15:40, T wave amplitude has decreased in Lateral leads Confirmed by JEIMY BURCH MD ([id number]) on 12/20/2022 4:44:49 PM Electronically Signed By: JEIMY BURCH MD 12/20/22 1644 PATIENT NAME: VYEFREM HOYT Electrocardiogram DATE OF : 39 PHYSICIAN: JEIMY BURCH MD REPORT #: [id number] REPORT IS CONFIDENTIAL AND NOT TO BE RELEASED WITHOUT AUTHORIZATION
--- NOTE | 2022-12-20 16:50 | NUR ---
Spoke with pt, her daughter Yajaira, and pts grandson. Pt currently living with her son and daughter in law. Pt states she injured her leg last Oct and moved in with her son. She uses 02 from [employer], walker, cane, shower chair, and a BSC. She would like a CG but states she does not have the money and is over income for assistance through the state. Her daughter in law is currently provide care for both the pt and her mother. Let her know I will contact [employer] and have them call her. They do have some cg assistance, but there is a wait list. Pt plans on dc to home when cleared medically. Denies need for any more DME.
--- NOTE | 2022-12-20 17:26 | NUR ---
pt daughter in law jen called for update on pt. Jen is the primary caregiver for this pt and also her elderly mother both. at this time pt is visiting with family and dc funeral planner in room with this rn.
--- NOTE | 2022-12-20 17:33 | NUR ---
Medications reconciled pharmacy records and patient daughter's notes
--- NOTE | 2022-12-20 19:05 | NUR ---
REPORT RECEIVED FROM SUZY Santos RN. CICI HASSAN IN ROOM ASSISTING PT TO RESTROOM. NO NEEDS FROM THIS RN AT THIS TIME.
--- NOTE | 2022-12-20 19:26 | NUR ---
IN WITH SUZY Santos RN. PT LAYING IN BED WATCHING TV. PT NC FOUND TO NOT BE ON PT. PULSE OX USED TO SPOT CHECK PTs O2. O2 SATS AT 88% ON RA. PLACED NC BACK ON PT AND O2 SATS INCREASE TO 92% ON 2L. PT DENIES ANY OTHER NEEDS AT THIS TIME. CALL LIGHT IN REACH.
--- NOTE | 2022-12-20 20:10 | NUR ---
IN TO COMPLETE VITALS AND I&Os. VITALS AND I&Os COMPLETE. ASSESSMENT COMPLETE. LUNG SOUNDS DIMINISHED IN RUL, RLL AND LLL. CLEAR IN GANGA. LLL COARSE. BOWEL TONES ACTIVE. PT DENIES ANY PAIN AT THIS TIME. SCATTERED BRUISING NOTED TO BUE. RIGHT FOOT BRUISING NOTED. NAVEED DRY BILATERAL SHINS NOTED. PT INCONTINENT OF URINE. REY CARE PROVIDED. NEW ATTENDS IN PLACE. PT DENIES ANY OTHER NEEDS AT THIS TIME. CALL LIGHT IN REACH.
--- NOTE | 2022-12-20 21:12 | NUR ---
THIS RN CALLED DR. BURCH TO VERIFY MEDICATION ORDER. VERIFIED WITH DR. BURCH MEDICATION IS BEING DOSED BY PHARMACY. NO NEW ORDERS AT THIS TIME.
--- NOTE | 2022-12-21 00:36 | NUR ---
SPOT CHECK O2 SATS PTs RR IS 26. O2 SATS AT 97% ON 3L NC. PT RESTING AND APPEARS COMFORTABLE. RR EVEN AND UNLABORED. PT AWAKENS WHEN O2 SATS ARE CHECKED. PT STATES "I JUST WANT TO REST" WHEN ASKED IF PT WOULD LIKE SCHEDULED NEB TX. PT DENIES ANY OTHER NEEDS AT THIS TIME. CALL LIGHT IN REACH.
--- NOTE | 2022-12-21 02:15 | NUR ---
IN TO COMPLETE VITALS AND I&Os. ASSESSMENT COMPLETE. LUNG SOUNDS CLEAR IN GANGA. DIMINISHED IN LLL, RLL AND RUL. CRACKLES IN RUL HEARD. BOWEL TONES ACTIVE. PT DENIES PAIN AT THIS TIME. PT INCONTINENT OF URINE. VITALS AND I&Os COMPLETE. PT REQUESTING WATER, WATER PROVIDED. PT DENIES ANY OTHER NEEDS AT THIS TIME. CALL LIGHT IN REACH.
--- NOTE | 2022-12-21 04:08 | NUR ---
IN IV PUMP ALARMING, RESOLVED. NEW BAG OF FLUIDS STARTED, SEE MAR. PT LAYING IN BED WITH EYES CLOSED. RR EVEN AND UNLABORED. CALL LIGHT IN REACH. NO OTHER NEEDS IDENTIFIED AT THIS TIME.
--- NOTE | 2022-12-21 05:46 | NUR ---
IN TO ADMINISTER MEDICATION, SEE MAR. PT REPORTS NO PAIN AT THIS TIME. VITALS AND I&Os COMPLETE. PT INCONTINENT OF URINE. PT DENIES ANY OTHER NEEDS AT THIS TIME. CALL LIGHT IN REACH.
--- NOTE | 2022-12-21 06:46 | NUR ---
IN TO ROUND ON PT. PT SITTING UP IN BED AND STATES "CAN WE MOVE THESE PILLOWS OR SOMETHING MY BACK IS STARTING TO HURT." SAT PTs HOB UP MORE AND PT STATES "THAT IS A LITTLE BETTER, WE WILL TRY THAT." PT DENIES ANY OTHER NEEDS AT THIS TIME. CALL LIGHT IN REACH.
--- NOTE | 2022-12-21 07:00 | NUR ---
bedside report from emilee vera, pt resting resp even eyes closed, light in reach.
--- NOTE | 2022-12-21 09:10 | NUR ---
PT VITALS/I&0'S TAKEN/DOCUMENTED. REPOSITINED PT. REFILLED WATER. LIGHTS ON. PT ANXIOUS ABOUT HAVING TO HAVE A BM IN HER BED. I ASSURED HER IT WAS OK WE WILL CLEAN HER UP AND GET HER SITUATED. TOLD HER TO JUST CALL WHEN SHE FELT SHE NEEDED TO HAVE A BM AND WE WILL ASSESS THE SITUATION WITH HER BREATHING AND BEING ABLE TO GET UP TO THE COMMODE. SHE AGREED. PT A LITTLE TEARFUL DUE TO EMBARASSEMENT BUT AGAIN REASSURED HER IT WOULD BE FINE. PT TABLES AT BESIDE W/CALL LIGHT.
--- NOTE | 2022-12-21 11:43 | NUR ---
INTO CHECK ON PATIENT, PATIENT AWAKE WATCHING TV. WHEN ASKED HOW SHE IS DOING THE PATIENT STATES " I WISH I COULD GET THIS SHAKY FEELING OUT OF ME." DISCUSSED THAT THE FEELING COULD BE DUE TO RECENT BREATHING TREATMENTS OR HER RECVING STERIODS. PATIENT GOES ON TO DISCRIBE A FEELING OF OVERALL WEAKNESS. ADVISED THAT A PT EVLUATION WAS DISCUSSED IN THE AM MEETING AND DR. BURCH WOULD BE PUTTING IN THE ORDER. PATIENT REQUEST JUAN RINCON GIVEN. NO FURTHER QUESTIONS OR CONCERNS FROM PATIENT AT THIS TIME.
--- NOTE | 2022-12-21 12:19 | NUR ---
PT RESTING IN BED, AWAKENS EASILY - LUNCH AT SIDE, INUSLIN GIVEN - CONTINUES TO COUGH UP AND OUT THICK DARK SPUTUM. CT WNL
--- NOTE | 2022-12-21 14:36 | NUR ---
PT ALERT, ORIENTED AND FEELS SHE IS IMPROVING. PTS' COLOR IS BETTER, EACH BREATH ISN'T MUCH OF A STRUGGLE. MENTIONED HOW MUCH SHE ENJOYS HER P.SHAWL AND FAVORABLE COMMENTS FROM VISITORS. GAVE ENCOURAGEMENT AND WILL FOLLOW
--- NOTE | 2022-12-21 19:15 | NUR ---
REPORT RECEIVED FROM YENI ALMONTE. PT LAYING IN BED SEMI-FOWLERS. PT DENIES ANY NEED AT THIS TIME. CALL LIGHT IN REACH.
--- NOTE | 2022-12-21 20:06 | NUR ---
IN TO ROUND ON PT. PT SITTING UP IN BED. PT RESPONDS WHEN ADDRESSED. ASSESSMENT COMPLETE. LUNG SOUNDS DIMINISHED IN RUL, RLL, AND LLL. CLEAR IN GANGA. BOWEL TONES ACTIVE. PT DENIES PAIN AT THIS TIME. PT INCONTINENT OF URINE. REY CARE PROVIDED. NEW ATTENDS IN PLACE. PT REQUESTING NEB TX. RT CALLED. PT REQUESTING ICE WATER, ICE WATER PROVIDED. IV FLUSHES WNL AND IS INFUSING WNL. PT DENIES ANY OTHER NEEDS AT THIS TIME. CALL LIGHT IN REACH.
--- NOTE | 2022-12-21 21:55 | NUR ---
CALL LIGHT ANSWERED, pt REPORTS SOB TO LEFT SIDE. HOB ELEVATED, pt ALREADY ON 3LNC CHRONIC PER pt. TITRATED TO 4LNC AND THERAPEUTIC COMMUNICATION PROVIDED, pt EDUCATED TO DEEP BREATH AND BREATH IN THROUGH NOSE AND OUT THROUGH MOUTH. SPO2 MAINTAINED IN LOW 90'S AND HR 102-111. pt STATES, "MY SISTER IN LAW FOUR MONTHS AGO FROM A BLOOD CLOT. SO EVERY TIME I GET SOB I THINK ABOUT HER AND GET ANXIOUS". LUNG SOUNDS SOMEWHAT COURSE IN UPPER LOBES R/T COUGH. THIS RN STAYED WITH pt FOR APPROX 10 MINUTES UNTIL SOB RESOLVED, BACK TO BASELINE 3LNC. PRIMARY RN CHESLIE AWARE AND TO GIVE SCHEDULED 2200 MEDICATION. NO ADDITIONAL NEEDS VERBALIZED BY pt, CALL LIGHT IN REACH.
--- NOTE | 2022-12-21 22:23 | NUR ---
IN TO ROUND ON PT. MEDICATION ADMINISTERED, SEE DEC. PT REQUESTING NEB TX. RT CALLED. PTs RUL AND GANGA HAVE EXPIRATORY WHEEZE NOTED. PT DENIES ANY OTHER NEEDS AT THIS TIME CALL LIGHT IN REACH.
--- NOTE | 2022-12-21 23:04 | NUR ---
IN WITH CICI HASSAN. PT INCONTINENT OF URINE WITH SMEAR BM. REY CARE PROVIDED. REDNESS NOTED TO PTs RIGHT BUTTOCK. CAVLON SPRAY APPLIED. NEW ATTENDS IN PLACE. PT REQUESTING OVERHEAD LIGHT TO BE TURNED OFF. LIGHT TURNED OFF. PT REPORTS NO OTHER NEEDS AT THIS TIME. CALL LIGHT IN REACH.
--- NOTE | 2022-12-22 05:34 | NUR ---
IN ROOM TO ASSIST RN. PT BRIEF SOILED AND CHANGED. PT ASSISTED UP TO CHAIR 1 PA STAND PIVOT TO CHAIR. PT TOLERATED WELL AND WAS ABLE TO STAND UP WO OUR ASSISTANCE. PT AM CARE PERFORMED. I MEMBER SERVICE REPRESENTATIVE DID A FULL LINEN CHANGE. WARM BLANKETS PROVIDED. ICE WATER AND COFFEE PROVIDED. NO FURTHER NEEDS. CALL LIGHT WITHIN REACH.
--- NOTE | 2022-12-22 06:04 | NUR ---
IN TO ADMINISTER MEDICATIONS, SEE MAR. PT TAKES PO MEDICATION CUT IN THIRDS IN APPLE SAUCE WITH NO ISSUES. VITALS AND I&Os COMPLETE. PT. INCONTINENT OF URINE. CICI HASSAN IN TO ASSIST WITH REY CARE. NEW ATTENDS IN PLACE. PT REQUESTING TO SIT UP IN CHAIR. 2PA FROM BED TO CHAIR. PT ABLE TO STAND AND SHUFFLE FEET TO CHAIR. PT DROPS TO 88% ON 3L NC AND RECOVERS TO 97% SHORTLY AFTER SITTING DOWN. PT DENIES PAIN AT THIS TIME. LUNG SOUNDS COARSE THROUGHOUT WITH RHONCHI IN GANGA AND LLL. BOWEL TONES ACTIVE. WATER PROVIDED. WASH CLOTH FOR FACE PROVIDED. WARM BLANKETS PROVIDED. PT REFUSES LEVOTHYROXINE MEDICATION AND STATES "I TAKE MY THYROID PILL EVERY OTHER DAY, AND I TOOK IT YESTERDAY." PT DENIES ANY OTHER NEEDS AT THIS TIME. CALL LIGHT IN REACH.
--- NOTE | 2022-12-22 07:48 | NUR ---
RECIEVED SHIFT REPORT. PT AWAKE IN THE RECLINER, DENIES ANY NEEDS AT THIS TIME. CALL LIGHT WITHIN REACH.
--- NOTE | 2022-12-22 08:22 | NUR ---
Patient up in chair this am, care completed. Call light within reach.
--- NOTE | 2022-12-22 08:30 | NUR ---
Spoke with Beronica. She states she is not bouncing back. Attempted to discuss with pt she may need placement for nursing care when she discharges. Pt states she will not go to [place]. I let her know there are several other SNFs in a 35 mile radius. Pt states she will not leave town.
--- NOTE | 2022-12-22 09:30 | NUR ---
Pt discussed by Dr. Patiño in 929 meeting. UPdated pt does not want placement and plans on dc to home. General feeling, pt will need placement. Will cont. to work with this pt and family.
--- NOTE | 2022-12-22 09:33 | NUR ---
PATIENT SITTING IN BED AFTER USING COMMODE. VITALS AND I/O'S COMPLETED. CALL LIGHT WITHIN REACH.
--- NOTE | 2022-12-22 09:55 | NUR ---
THIS RN TO ROOM TO ASSIST WITH IV START. STARETED PER PROTOCOL TO RIGHT FORARM. PT TOELRATED WELL. IV FLUIDS STARETED (SEE MAR). MEDICAITON GIVEN. NO ADDITIONAL REQUESTS OR COMPLAINTS. CALL LIGHT WITHIN REACH. BED RAILS UP. PTS PRIMARY RN UPDATED.
--- NOTE | 2022-12-22 12:29 | NUR ---
PT RESTING IN BED, TV ON. I COULD TELL PT WAS NOT DOING WELL. SHE MENTIONED THAT TODAY HAD BEEN A TOUGH DAY. PT FEELING VERY WEAK, AND REALIZING HOW SICK SHE IS. SHE IS NOT READY TO PASS-HAS MORE TO DO. GRANDSON SHE WANTS TO SEE GET . GAVE ENCOURAGEMENT, PRAYED FOR STRENGTH. WILL FOLLOW
--- NOTE | 2022-12-22 14:25 | NUR ---
PATIENT IN BED AFTER MEAL. VITALS AND I/O'S COMPLETED. REY CARE AND DIAPER CHANGE ALSO DONE. CALL LIGHT WITHIN REACH.
--- NOTE | 2022-12-22 14:48 | NUR ---
UPON ASSESSMENT PT LUNG SOUNDS COURSE BILAT IN ALL LOBES. PT REFUSED PRN NEB TX AT THIS TIME. CONTINUES TO HAVE A LOOSE NONPRODUCTIVE COUGH. HOB ELEVATED. DENIES PAIN. CALL LIGHT WITHIN REACH.
--- NOTE | 2022-12-22 21:50 | NUR ---
PT AWAKE AND ALERT, IN BED WITH HOB SLIGHTLY ELEVATED, TALKATIVE, WITHOUT REQUEST AT THIS TIME, OXYGEN REMAINS IN PLACE, IV PATENT RIGHT FOREARM, SITE INTACT, LR INFUSING WELL AT 50ML/HR. DISCUSED PLAN TO TRY TO SLEEP BETWEEN 22-06. PT STATES SHE WILL CALL FOR ASSISTANCE PRN.
--- NOTE | 2022-12-22 22:18 | NUR ---
PT LYING IN BED WATCHING TV. RESP EVEN ET UNLABORED. 02 @ 3L NC. PT CARMINE TO MAKE NEEDS KNOWN REQUIRES X 2 ASSIST. PT HAS NO COMPLAINTS OF PAIN OR DISTRESS AT THIS TIME. PT HANDED OFF TO ANGELITO JAIME REPORT GIVEN.
--- NOTE | 2022-12-22 22:27 | NUR ---
PT AWAKE AND ALERT, RT MEDICATION GIVEN AND ORDERED ANTIBODIC, IV SITE PATENT, FLUSHES WELL, ANTIBODIC INFUSING WELL, PT DECLINES BEING TURNED AT THIS TIME, DESIRES TO SLEEP ON HIS LEFT SIDE FOR A WHILE.
--- NOTE | 2022-12-22 22:36 | NUR ---
PT ASLEEP, RESP EVEN AND REG, OXYGEN IN PLACE, WITHOUT DISTRESS.
--- NOTE | 2022-12-22 23:30 | NUR ---
PT ASLEEP, RESP EVEN AND REGULAR, WITHOUT DISTRESS.
--- NOTE | 2022-12-23 01:00 | NUR ---
PT ASLEEP, WITHOUT DISTRESS, RESP EVEN AND REGULAR, OXYGEN IN PLACE
--- NOTE | 2022-12-23 02:30 | NUR ---
PT REMAINS ASLEEP, RESP EVEN AND REGULAR, WITHOUT DISTRESS.
--- NOTE | 2022-12-23 04:00 | NUR ---
PT ASLEEP, RESP EVEN AND REG, OXYGEN IN PLACE
--- NOTE | 2022-12-23 06:15 | NUR ---
PT AWAKE, ALERT, STATES SHE WAS ABLE TO GET SOME SLEEP LAST NIGHT, VS AND ASSESSMENT DONE, PT INCONTINENT OF LARGE AMOUNT URINE, REY CARE AND LINEN CHANGE COMPLETED, MOIST COUGH NON PRODUCTIVE, OXYGEN REMAINS ON AT 3L/NC. RT MEDS GIVEN, PT REPOSITIONED UP IN BED, WITH HOB ELEVATED. PT DENIES OTHER REQUESTS, ATTEMPTING TO REST.
--- NOTE | 2022-12-23 07:58 | NUR ---
pt up in the chair, receiving neb tx with resp present. AM meds given and no request at this time.
--- NOTE | 2022-12-23 08:07 | NUR ---
Patient in chair this morning. Am care completed. Patient did well with 1 person assist to chair, with 75% of lifting and movement done by patient. Call light within reach.
--- NOTE | 2022-12-23 09:54 | NUR ---
PT REMAINS UP IN THE CHAIR WATCHING TV, NO C/O'S AT THIS TIME. RESP RATE INCREASED THIS AM, BUT SPO2 AT 3L'S REMAINS OKAY AT THIS TIME.
--- NOTE | 2022-12-23 10:56 | NUR ---
PT REMAINS UP IN THE CHAIR AT THIS TIME, RESP RATE LABORED, BUT HAS NO C/O'S AT THIS TIME. READING THE NEWSPAPER AND WATHCING TV.
--- NOTE | 2022-12-23 14:15 | NUR ---
YENI Macias went into room to check respirations and found respirations of 16
--- NOTE | 2022-12-23 14:21 | NUR ---
PATIENT IN BED AFTER MEAL. VITALS AND I/O'S COMPLETED. PATIENT WENT TO THE BEDSIDE COMMODE AND BACK TO BED WITH SBA, TOLERATED WELL. PATIENT RESPIRATIONS UP TO 40, NURSE NOTIFIED. CALL LIGHT WITHIN REACH.
--- NOTE | 2022-12-23 14:24 | NUR ---
LOCKSTITCH BINDER REPORTED RR OF 40. THIS NURSE TO BEDSIDE. RECOUNTED RR AT 16. PT WAS TRANSFERING FROM CHAIR TO BED WHEN LOCKSTITCH BINDER COUNTED RR. PT HAS RECOVERED.
--- NOTE | 2022-12-23 17:28 | NUR ---
PT IN BED GAVE 1700 MEDS AND SHE ATE DINNER. CHIKI WELL AND IS CURRENTLY SLEEPING.
--- NOTE | 2022-12-23 18:37 | NUR ---
PT IN BED ATTENDS BEING CHANGED AT THIS TIME.
--- NOTE | 2022-12-23 19:13 | NUR ---
SHIFT REPORT RECEIVED FROM BRANDON JAIME. PT AWAKE AND ALERT, SITTING UP IN BED WITH OXYGEN IN PLACE, WITHOUT COMPLAITS.
--- NOTE | 2022-12-23 22:00 | NUR ---
IN ROOM WITH PRIMARY RN ANGELITO TO ASSIST WITH EVENING VS, VSS. pt REMAINS ON HER CHRONIC 3LNC, RR EVEN AND UNLABORED. NO ADDITIONAL NEEDS VERBALIZED BY pt, PRIMARY RN REMAINS IN ROOM TO COMPLETE ASSESSMENT AND pt CARES.
--- NOTE | 2022-12-23 22:05 | NUR ---
PT RESTING QUIETLY, AWAKEN FOR ASSESSMENT AND VS, PT STATES SHE HAD A BETTER DAY, PT REQUESTING SLEEPING MEDICATION, MEDICATED PER ORDER, PT DENIES NEED TO VOID, STATES SHE WILL VOID IN HER ATTENDS TONIGHT, PT TO BE LEFT UNDISTURBED UNTIL 0600 PER MD ORDER, ENCOURAGED PT TO CALL RN FOR ANY NEEDS SHE MAY HAVE.
--- NOTE | 2022-12-23 23:05 | NUR ---
pt RESTING IN BED WITH EYES CLOSED, ON CHRONIC 3LNC. NO DISTRESS NOTED, RR EVEN AND UNLABORED. CALL LIGHT IN REACH, IV FLUIDS INFUSING DIRECTED.
--- NOTE | 2022-12-23 23:30 | NUR ---
PT ASLEEP, HOB SLIGHTLY ELEVATED, RESP EVEN AND REG, OXYGEN IN PLACE.
--- NOTE | 2022-12-24 00:50 | NUR ---
PT ASLEEP, RESP EVEN AND REGULAR WITHOUT DISTRESS.
--- NOTE | 2022-12-24 02:20 | NUR ---
PT CONTINUES TO SLEEP, RESP EVEN AND REG, HEAD OF BED ELEVATED.
--- NOTE | 2022-12-24 03:25 | NUR ---
PT ASLEEP, RESP EVEN AND REG. WITHOUT DISTRESS.
--- NOTE | 2022-12-24 04:30 | NUR ---
pt RESTING IN BED WITH EYES CLOSED, ON 3LNC-CHRONIC FOR pt. RR EVEN AND UNLABORED, NO DISTRESS NOTED. NURSE NOTIFICATION TO ALLOW pt TO REST FROM [id number]. WILL ALLOW pt TO REST AND CONTINUE TO MONITOR. IV SITE WNL, FLUIDS INFUSING DIRECTED.
--- NOTE | 2022-12-24 07:07 | NUR ---
pt HEAVILY INCONTINENT OF URIEN, REY CARE DONE. VSS, pt REMAINS ON 3LNC. SCHEDULED PO ABX GIVEN-SEE EMAR. PER pt REQUEST, SCHEDULED AM THYROID HELD pT REPORTS SHE TAKES IT ONLY EVERY OTHER DAY.
--- NOTE | 2022-12-24 07:46 | NUR ---
PT SITTING UP IN THE CHAIR AT TIME OF SHIFT REPORT. DENIES DISCOMFORTS OR REQUESTS. FRESH H20 TO CHAIRSIDE, CALL LIGHT IN REACH
--- NOTE | 2022-12-24 10:59 | NUR ---
PT UP IN CHAIR TOLERATES 100% OF MORNING MEAL. SBA WITH FWW TO BSC THEN BACK TO THE CHAIR. DENIES DISOMFORTS OR NEEDS AT THIS TIME.
--- NOTE | 2022-12-24 13:30 | NUR ---
PT HAS BEEN UP IN THE CHAIR ALL MORNING. TO THE BSC THEN TO THE BED AT THIS TIME SBA FWW. CALL LIGHT AND NEEDED ITEMS IN REACH.
--- NOTE | 2022-12-24 15:03 | NUR ---
PATIENT IN BED AFTER MEAL. VITALS AND I/O'S COMPLETED. CALL LIGHT WITHIN REACH.
--- NOTE | 2022-12-24 17:55 | NUR ---
PATIENT IN BED AFTER MEAL. VITALS AND I/O'S COMPLETED. DIAPER CARE COMPLETED. CALL LIGHT WITHIN REACH.
--- NOTE | 2022-12-24 18:35 | NUR ---
PT EATS NEARLY ALL OF EVENING MEAL. CONTINUES UPRIGHT IN BED DENIES NEED OF ANYTHING. 02 ON 3LPM CALL LIGHT IN LAP
--- NOTE | 2022-12-24 19:12 | NUR ---
PT AWAKE AND ALERT, BEDSIDE REPORT RECEIVED FROM ALANA JAIME, PT ALERT, COMFORTABLE AT THIS TIME WITHOUT REQUEST.
--- NOTE | 2022-12-24 19:12 | NUR ---
REPORT RECEIVED FROM ZHANNA JAIME. PT AWAKE, RESTING IN BED, HOB ELEVATED, PT CONCERNED WITH IV LEAKING AND NAME BAND RUBBING ON IV SITE, IV FLUSHES WELL WITH GOOD BLOOD RETURN, PLAN TO REDRESS SITE, NAME BAND REMOVED TO LEFT WRIST, NEW BAND VERIFIED WITH PT AND PLACED ON LEFT WRIST. PT RESTING WITHOUT FURTHER REQUEST AT THIS TIME.
--- NOTE | 2022-12-24 21:30 | NUR ---
PT AWAKE AND ALERT,INCONTINENT OF URINE, VS, I/O AND ASSESSMENT DONE, DISCUSSED USE OF PURE WICK URINE COLLECTION DEVICE, PT AGREES TO USE, PERICARE GIVEN PER PACKAGE INSTRUCTIONS, WICKING DEVICE PLACED, PT DESIRES SLEEPING MEDICATION, PLAN TO ADMINISTER.
--- NOTE | 2022-12-24 21:54 | NUR ---
PT MEDICATED PER REQUEST WITH DESYREL FOR SLEEP BY GONZALES VERA RN.
--- NOTE | 2022-12-24 22:30 | NUR ---
CALL LIGHT ANSWERED. IV SITE ASSESSED, FLUSHED WNL, BRISK BLOOD RETURN. TUBING WRAPPED WITH LOOSE COBAN REQUESTED. CALL LIGHT WITHIN REACH. NO ADDITIONAL REQUESTS. URINE NOTED IN SUCTION CANNISTER FROM [email or web address].
--- NOTE | 2022-12-24 23:20 | NUR ---
PT APPEARS TO SLEEP, RESP EVEN AND REGULAR, OXYGEN IN PLACE.
--- NOTE | 2022-12-25 00:51 | NUR ---
PATIENT CALLED STATED "I AM COLD". WARM BLANKET PROVIDED. NO OTHER NEEDS AT THIS TIME.
--- NOTE | 2022-12-25 01:35 | NUR ---
PT ASLEEP, RESP EVEN AND REG, WITHOUT SIGNS OF DISTRESS.
--- NOTE | 2022-12-25 02:55 | NUR ---
PT CONTINUES TO SLEEP, RESP EVEN AND REG, PURE WICK DRAINING WELL, LIGHT YELLOW URINE.
--- NOTE | 2022-12-25 04:30 | NUR ---
PT CONTINUES TO SLEEP, RESP REG.
--- NOTE | 2022-12-25 06:10 | NUR ---
HECTOR CHANGED, AVTAR, NEW ONE IN PLACE. PT REFUSED HEEL PROTECTORS "FOR NOW", PREFERS COVERS NOT OVER FEET. WARM BLANKET PROVIDED. VS, I/O DONE.
--- NOTE | 2022-12-25 06:15 | NUR ---
PT RESTING WITH EYES CLOSED, AWAKEN EASILY, STATES SHE DIDN'T SLEEP WELL BUT DID APPRECIATE THE PURE WICK AND STAYING DRY OF URINE, IV PATENT, SITE INTACT, RT MED GIVEN, PT ATTEMPTING TO SLEEP.
--- NOTE | 2022-12-25 07:27 | NUR ---
Received report from night shift manager nurse.
--- NOTE | 2022-12-25 08:27 | NUR ---
PATIENT SITTING UP IN BED FOR BREAKFAST WATCHING TV. PT TAKES HER MEDROL DOSE PACK WITH APPLESAUCE. PATIENT HAS O2 ON AT 3L PURE WICK IN PLACE CURRENTLY. PT HAS CALL LIGHT WITHIN REACH. DENIES ANY OTHER CARES AT THIS TIME.
--- NOTE | 2022-12-25 09:08 | NUR ---
INTO SPEAK WITH PATIENT ABOUT POSSIBLE SNF STAY FOR FURTHER PT/OT. PATIENT AGREES AND REQUEST [facility] SHE DOES NOT WANT TO LEAVE TOWN. ADVISED THAT I BELIEVE [facility] HAS BEDS AVAILABLE AND I WILL SEND HER CHART OVER FOR REVIEW. PATIENT STATES SHE IS AWARE THAT MEDICARE WILL PAY FOR 21 DAY OF REHAB, THEN SHE IS SUBJECT TO THE COST. CHART FAXED TO GURMEET AT [facility] FOR REVIEW.
--- NOTE | 2022-12-25 10:50 | NUR ---
BOTH NARES SWABBED WITHOUT COMPLICATION
--- NOTE | 2022-12-25 11:19 | NUR ---
SPOKE WITH PATIENT DAUGHTER IN LAW EDDIE ABOUT POSSIBLE FAMILY MEETING TO DISCUSS GOALS OF CARE. ADVISED THAT PATIENT HAS BEEN REFUSING MEALS AND PT. ECHO AND PATIENT SON DMITRIY FEEL THAT THE PATIENT ON PURPOSE. ECHO STATES THAT YESTERDAY WHEN THE FAMILY CAME TO SEE THE PATIENT THY COULD TELL SHE WAS "GETTING A LITTLE STUBBORN." ECHO WILL CONTACT DMITRIY AT WORK TO DISCUSS THE PATIENT BEHAVIORS WITH HIM. DMITRIY IS PLANNING ON COME TO SEE THE PATIENT AFTER 4:30 THIS EVENING. DISCUSSED WITH EDDIE THE OPTION OF PLACEING THE PATIENT IN SNIF FOR FURTHER PT IF SHE AGREES TO WORK WITH THERAPIES. ECHO STATES THAT THEY WOULD AGREE TO THAT PLAN THEY BOTH WORK DURING THE DAY AND THE PATIENT IS HOME ALONE. ECHO ALSO PLANS ON CONTACTING [facility] FOR [facility] MEDICAID APPLICATION IN CASE FUTURE PLACEMENT IS NEEDED. WILL ADVISE STAFF OF CONVERSATION AND WILL SET UP CONFERENCE FOR THIS AFTERNOON.
--- NOTE | 2022-12-25 13:31 | NUR ---
PT ALERT,ORIENTED AND LAYING IN BED WATCHING TV. PT IS PLEASANT, WELCOMED ME INTO HER RM. PT STATED SHE HAD A ROUGH NIGHT-NOT MUCH SLEEP AND HOPES TO GET SOME TODAY. PT/OT HAS NOT BEEN IN YET, AND SHE STATED THAT SHE WOULD HAVE TO DRAG HERSELF UP TO PARTICIPATE. PT REACHED FOR MY HAND AND REQUESTED PRYAER. GAVE BLESSING, WILL FOLLOW
--- NOTE | 2022-12-25 13:44 | NUR ---
PATIENT SITTING UP IN BED WATCHING TV. PATIENT FOUND WITH HER NS IN HER MOUTH. PT ADVISED THIS NURSE HER NOSE HAS BECOME VERY DRY. HUMIDIFIER HOOKED UP TO PATIENTS OXYGEN. CURRENTLY RUNNING AT 3L.
--- NOTE | 2022-12-25 14:17 | NUR ---
YOVANNY WICK CHANGED OUT ON PATIENT. WILL NEED CHANGED AGAIN AT 10PM.
--- NOTE | 2022-12-25 14:51 | NUR ---
RECVD TEXTED FROM GURMEET AT [facility], PATIENT HAS BEEN ACCEPTED AND THEY WOULD LIKE TO PLAN FOR ADMISSION AROUND 1100. INTO SPEAK WITH PATIENT ALONG WITH NAVA JAIME. PATIENT NOTIFIED AND WOULD LIKE TO HAVE A WC VAN TRANSPORT ARRANGED. PATIENT CONCERNED STATING "YOU THINK I AM READY TO GO?" REASSURED PATIENT THAT THE MD FEELS WE ARE NO LONGER PROVIDING ACUTE CARE AT THIS TIME AND WILL BENEFIT FROM TRANSFER FOR ONGOING PT. PATIENT AGREES TO TRANSPORT. WC VAN TRANSPORT SCHEDULED FOR 1030. STAFF AND GURMEET AT [facility] ADVISED.
--- NOTE | 2022-12-25 17:40 | NUR ---
THIS NURSE INTO ROOM TO DO ASSESMENT. CURRENT IV LEAKING ON PATIENTS GOWN. IV STOPPED. IV REMOVED, CATH INTACT. PATIENT GOT VERY UPSET RIGHT AWAY SHE DOES NOT WANT A NEW IV SINCE HER PLAN IS TO DISCHARGE TOMORROW. PHONE CALL TO , LONG FLUID INTAKE CONTINUES TO IMPROVE WE WILL LEAVE IV OUT. NEW GOWN AND SHEETS CHANGED FOR PATIENT.
--- NOTE | 2022-12-25 18:59 | NUR ---
PATIENT UP TO COMMODE TO HAVE A LARGE FORMED BM. PATIENT BACK TO BED WITH 2 PERSON ASSIST. YOVANNY WIGIGI IS IN, DUE TO BE CHANGED AT 2200.
--- NOTE | 2022-12-25 19:20 | NUR ---
SHIFT REPORT RECEIVED PER CHIQUITA RN, PT ASLEEP, RESP EVEN AND REG, HOB ELEVATED APPROX 30 DEGREES, WITHOUT DISTRESS.
--- NOTE | 2022-12-25 21:35 | NUR ---
pt AWAKE, RESTING IN BED. VSS. PUREWICK IN PLACE, SUCTION CANNISTER EMPTIED AT THIS TIME. PO FLUIDS PROVIDED. pt RESTING IN BED WITH CALL LIGHT IN REACH. NO ADDITIONAL REQUESTS.
--- NOTE | 2022-12-25 21:35 | NUR ---
VS AND I/O DONE PER GONZALES JAIME.
--- NOTE | 2022-12-25 22:40 | NUR ---
PT AWAKE AND ALERT, ASSESSMENT COMPLETED, SLEEPING MEDICATION GIVEN PER REQUEST AND PER ORDER, BARRIER CREAM TO COCCYX AREA AFTER AREA CLEANSED, NEW PURE WICK PLACED AFTER REY AREA CLEANSED, PT SIPPING ON SODA, REPOSITIONED UP IN BED, ATTEMPTING TO REST.
--- NOTE | 2022-12-26 00:45 | NUR ---
PT ASLEEP, RESP EVEN AND REG, OXYGEN IN PLACE, WITHOUT DISTRESS.
--- NOTE | 2022-12-26 01:45 | NUR ---
PT CONTINUES TO SLEEP, LAYING ON SIDE, OXYGEN IN PLACE.
--- NOTE | 2022-12-26 03:30 | NUR ---
PT ASLEEP, RESP EVEN AND REG. OXYGEN IN PLACE.
--- NOTE | 2022-12-26 04:35 | NUR ---
PT CONTINUES TO SLEEP, RESP EVEN AND REG.
--- NOTE | 2022-12-26 06:25 | NUR ---
pt AWAKENS TO VOICE. VSS. SPO2 98% WITH 3L OXYGEN BY NC IN PLACE. PUREWICK CHANGED. REY CARE COMPLETE. NEW ATTENDS IN PLACE. SMALL AMT URINE ON ATTENDS. PO FLUID PROVIDED. CALL LIGHT IN REACH. PRIMARY RN ANGELITO NOW IN ROOM.
--- NOTE | 2022-12-26 07:12 | NUR ---
pt refused to get up in chair for meal. pt states she will get up when it is time to get ready to leave. call light within reach no further tasks at this time.
--- NOTE | 2022-12-26 07:30 | NUR ---
RECEIVED REPORT FROM DECK HAND NURSE.
--- NOTE | 2022-12-26 08:05 | NUR ---
Reviewed plan of care with patient. Patient will go to [facility] at 10;30 today via taxi. Family will be here at 10:00 to bring O2 tank for travel to [facility].Text send to Belle at [facility] to make sure all parties are aware of DC plan.
[2022-12-26] MEDS ORDERED: ALBUTEROL2.5 MG/3 M INH (09:07)
[2022-12-26] MEDS ORDERED: DILTIAZEM 24HR120 MG PO (09:07)
[2022-12-26] MEDS ORDERED: TRAZODONE HCL50 MG PO (09:07)
[2022-12-26] MEDS ORDERED: ACETAMINOPHEN500 MG PO (09:07)
[2022-12-26] MEDS ORDERED: SENNA LAX8.6 MG PO (09:08)
[2022-12-26] MEDS ORDERED: METHYLPREDNISOLO4 M1 PO ×2 (09:16→09:17)
--- NOTE | 2022-12-26 09:57 | NUR ---
pt dressed for transport at 10:30. call light within reach no further tasks at this time
--- NOTE | 2022-12-26 10:30 | NUR ---
PATIENT DISCHARGED TO [facility] VIA WHEELCHAIR VAN. PATIENT BELONGINGS ARE WITH PATIENT. PATIENT HAS HER HOME OXYGEN WITH HER AND RUNNING. NO IV TO REMOVE, IT WAS TAKEN OUT YESTERDAY FROM LEAKING. PURE WICK REMOVED.
--- NOTE | 2022-12-26 11:15 | NUR ---
REPORT WAS GIVEN TO [facility].
== END 2022-12-26 10:30 | DRG 871 ==
LOC: ED 07:44 → CCU 07:45 → MS 12:42 → CCU 12:42 → MS 16:23
PROVIDERS: ADMIT Internal Medicine; ATTEND Family Medicine
DX: A41.50 Gram-negative sepsis, unspecified (principal); E43 Unspecified severe protein-calorie malnutrition; J15.6 Pneumonia due to other Gram-negative bacteria; J44.1 Chronic obstructive pulmonary disease with (acute) exacerbation; J44.0 Chronic obstructive pulmonary disease with (acute) lower respiratory infection; J96.11 Chronic respiratory failure with hypoxia; Z68.1 Body mass index [BMI] 19.9 or less, adult; Z20.822 Contact with and (suspected) exposure to COVID-19; Z66 Do not resuscitate; I10 Essential (primary) hypertension; E83.42 Hypomagnesemia; E03.9 Hypothyroidism, unspecified; G47.00 Insomnia, unspecified; Z96.643 Presence of artificial hip joint, bilateral; Z87.891 Personal history of nicotine dependence; Z99.81 Dependence on supplemental oxygen; Z90.49 Acquired absence of other specified parts of digestive tract; Z90.710 Acquired absence of both cervix and uterus; Z98.890 Other specified postprocedural states; Z88.0 Allergy status to penicillin; Z88.6 Allergy status to analgesic agent; Z88.8 Allergy status to other drugs, medicaments and biological substances; Z79.82 Long term (current) use of aspirin; Z79.890 Hormone replacement therapy; Z79.899 Other long term (current) drug therapy
CPT/HCPCS: 36415; 71045; 80048; 80053; 83735; 83880; 84484; 85025; 85379; 87070; 87205; 87502; 93005; 93010; 94640; 94644; 94667; 94668; 94760; 97116; 97162; 97165; A9270; C9803; J1650; J1956; J2920; J2930; J3010; J3475; J7030; J7121; J7509; U0003

== ENCOUNTER 2023-07-19 12:38 | Inpatient (IN) | payer MEDICARE, OTHER ==
[~2023-07-19] VITALS: Ht 162.6 cm; Wt 43.9 kg
--- OUTSIDE RECORDS SUMMARY | ~2023-07-19 | XMS | Continuity of Care Document ---
Demographics + + + | Address | [address] | | | [place] [address] | + + + | Preferred Language | Unknown | + + + | Marital Status | | + + + | Judaism Affiliation | Unknown | + + + | Race | White | + + + | Ethnic Group | Not or | + + + Author + + + | Author | [facility] | + + + | Organization | [facility] | + + + | Address | [address] | | | [place] [address] | + + + | Phone | | + + + Care Team Providers + + + + | Care Cultural Centre Manager Name | Role | Phone | + + + + Unavailable | Unavailable | + + + + Allergies No information. Encounters No information. Functional Status No information. Immunizations No information. Medications No information. Problems + + + + | date | description | facility | + + + + | 2023-05-25 17:43 | CHRONIC OBSTRUCTIVE | [facility] | | | PULMONARY DISEASE W (ACUTE) | | | | EX | | + + + + | 2023-05-25 17:43 | SHORTNESS OF BREATH | [facility] | + + + + | 2023-05-25 17:43 | OTHER PHOTO CHECKER (CURRENT) | [facility] | | | DRUG THERAPY | | + + + + | 2023-05-25 17:43 | PERSONAL HISTORY OF | [facility] | | | NICOTINE DEPENDENCE | | + + + + | 2023-05-25 17:43 | ALLERGY STATUS TO | [facility] | | | PENICILLIN | | + + + + | 2023-05-25 17:43 | ALLERGY STATUS TO | [facility] | | | ANALGESIC AGENT STATUS | | + + + + | 2023-05-25 17:43 | ALLERGY STATUS TO OTH | [facility] | | | DRUG/MEDS/BIOL SUBST STATUS | | | | | | + + + + | 2023-05-25 17:43 | 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[facility] | | | OXYGEN | | + + + + | 2023-07-11 12:35 | CARDIOMEGALY | [facility] | + + + + | 2023-07-11 12:35 | TACHYCARDIA, UNSPECIFIED | [facility] | + + + + | 2023-07-11 12:35 | ABNORMAL FINDINGS ON DX | [facility] | | | IMAGING OF HEART AND COR C | | + + + + | 2023-07-11 12:35 | ENCOUNTER FOR OTHER | [facility] | | | PREPROCEDURAL EXAMINATION | | + + + + | 2023-07-13 06:19 | HYPOTHYROIDISM, | [facility] | | | UNSPECIFIED | | + + + + | 2023-07-13 06:19 | CHRONIC OBSTRUCTIVE | [facility] | | | PULMONARY DISEASE, | | | | UNSPECIFIED | | + + + + | 2023-07-13 06:19 | OTHER NAIL DISORDERS | [facility] | + + + + | 2023-07-13 06:19 | UNSPECIFIED | [facility] | | | OSTEOARTHRITIS, UNSPECIFIED | | | | SITE | | + + + + | 2023-07-13 06:19 | ALLERGY STATUS TO | [facility] | | | PENICILLIN | | + + + + | 2023-07-13 09:00 | OTHER NAIL DISORDERS | [facility] | + + + + Procedures No information. Results/Labs No information. Social History +--------+ + + | date | description | facility | +--------+ + + Vital Signs No information."
--- OUTSIDE RECORDS SUMMARY | ~2023-07-19 | XMS | Continuity of Care Document ---
Demographics + + + | Address | [address] | | | [place] [address] | + + + | Preferred Language | Unknown | + + + | Marital Status | | + + + | Sabianist Affiliation | Unknown | + + + | Race | White | + + + | Ethnic Group | Not or | + + + Author + + + | Author | [facility] | + + + | Organization | [facility] | + + + | Address | [address] | | | [place] [address] | + + + | Phone | | + + + Care Team Providers + + + + | Care Multi Operation Machine Operator Name | Role | Phone | + [...] + + | 2023-05-25 17:43 | OTHER TIRE SHOP MECHANIC (CURRENT) | [facility] | | | DRUG [...]
[~2023-07-19 12:38] MED LIST changes: +ACETAMINOPHEN500 MG PO; +ADULT LOW DOSE81 MG PO; +ALBUTEROL2.5 MG/3 M INH; +DILTIAZEM 24HR120 MG PO; +DOXYCYCLINE HY100 MG PO; +HYDROCODON-ACE1 EA10 PO; +LASIX20 MG PO; +METHYLPREDNISOLO4 M1 PO; +POTASSIUM CHLO10 MEQ PO; +SENNA LAX8.6 MG PO; +TRAZODONE HCL50 MG PO
[2023-07-19 12:52] LABS: BASOPHILS 0.2 % (0-2); EOSINOPHILS 0.8 % (0-6); HEMATOCRIT 41.8 % (35.0-50.0); HEMOGLOBIN 13.4 g/dL (12.0-18.0); LYMPHOCYTES 7.7 % (24-44); MCH 27.6 (27-36); MCV 86.1 fl (81-99); MONOCYTES 5.2 % (0-12); NEUTROPHILS 86.1 % (39-80); PLATELET COUNT 381 K/uL (140-440); RBC 4.85 M/ul (4.3-5.7); RDW 14.3 (10.5-15.0)
[2023-07-19 13:15] LABS: ALBUMIN 3.4 g/dL (3.4-5.0); ALBUMIN/GLOBULIN RATIO 0.72 (1.1-2.4); ANION GAP 10.3 (7-21); BILIRUBIN, TOTAL 0.5 ng/dL (0.2-1.0); BUN/CREATININE RATIO 26.66 (6.0-28.6); CALCIUM 10.1 mg/dL (8.5-10.1); CREATININE, SERUM 0.6 mg/dL (0.55-1.02); MAGNESIUM 1.5 mg/dL (1.8-2.4); POTASSIUM 4.3 mmol/L (3.5-5.1); PROTEIN, TOTAL 8.1 g/dL (6.4-8.2)
[2023-07-19 14:00] LABS: LACTIC ACID, BLOOD 1.7 mmol/L (0.4-2.0)
[2023-07-19 14:14] LABS: INFLUENZA B NAA NEGATIVE (NEGATIVE); RESPIRATORY SYNCYTIAL VIR NAA NEGATIVE (NEGATIVE)
[2023-07-19 16:15] VITALS: BP 131/64
--- NOTE | 2023-07-19 16:42 | NUR ---
pt to room 127 [facility] tr[facility] from [facility] to bed slide trsf x4 staff. pt alert and oriented - lives home alone attends from home saturated with urine - reports bm lg at home today - reports at baseline she is immobile an stays in bed and has caregiver. left arm 22g sl wnl. pt on oxymask oxygen 6l 98% resting watching tv. call light in hand - consent to pictures of skin on lower back/bottom - intact and red - cleaned - bed bath and covered with alyvn. pt very frail and painful to touch - reports numbness and tingling in ble. pt has glasses, upper and lower dentures in mouth. reports no dion. for ensure or meals. pt reports she is a DNR. daughter ele is in [place] and she is aware pt is here.
[2023-07-19 17:20] VITALS: BP 124/59
[2023-07-19] MEDS ORDERED: BUDESONIDE0.5 MG/2 M INH (18:07)
[2023-07-19] MEDS ORDERED: VENTOLIN HFA18 GM INH (18:08)
--- NOTE | 2023-07-19 18:47 | NUR ---
hob up in bed, rapid resp - eyes closed sats 95% 3l nc. call light in reach.
--- NOTE | 2023-07-19 19:10 | NUR ---
REPORT RECEIVED AND CARE ASSUMED FROM YENI BUCK. PT RESTING IN BED WATCHING TELEVISION. VSS PER CONTINUOUS MONITOR. NAD VIA DIRECT OBSERVATION.
[2023-07-19 20:00] VITALS: BP 114/42
--- NOTE | 2023-07-19 20:24 | NUR ---
SHIFT ASSESSMENT COMPLETE, SEE MEDITECH. PT RESTING IN BED WATCHING BASEBALL ON TELEVISION. PT PLEASANT AND COMMUNICATIVE, A&OX4. 3L NC IN PLACE WITH O2 SAT > 94%. PT REQUESTED AND PROVIDED ICE WATER, DENIES ADDITIONAL NEEDS AT THIS TIME. BED IN LOW, LOCKED POSITION WITH CALL LIGHT IN REACH. PT VERBALIZES UNDERSTANDING TO USE CALL LIGHT WITH NEEDS. VSS AND NAD NOTED PER CONTINUOUS MONITOR AND DIRECT OBSERVATION.
--- NOTE | 2023-07-19 20:42 | NUR ---
PT REQUEST AND PROVIDED HARJINDER. DENIES ADDITIONAL NEEDS AT THIS TIME.
--- NOTE | 2023-07-19 22:10 | NUR ---
PT RESTING IN BED, EYES CLOSED. VSS AND NAD NOTED PER CONTINUOUS MONITOR AND DIRECT OBSERVATION. CALL LIGHT IN REACH. BED IN LOW, LOCKED POSITION, 3L NC IN PLACE.
[2023-07-20] VITALS (8 sets, daily range): BP systolic 112–149; BP diastolic 43–69
--- NOTE | 2023-07-20 00:20 | NUR ---
PT RESTING IN BED, EASILY AWAKENED TO VOICE. PT A&O. DENIES NEEDS AT THIS TIME. PT VERBALIZES UNDERSTANDING TO USE CALL LIGHT WITH NEEDS. BED IN LOW, LOCKED POSITION FOR PT SAFETY. VSS AND NAD PER CONTINUOUS MONITOR AND DIRECT OBSERVATION.
--- NOTE | 2023-07-20 02:00 | NUR ---
PT REQUESTED AND PROVIDED WARM BLANKET. DENIES ADDITIONAL NEEDS.
--- NOTE | 2023-07-20 04:59 | NUR ---
ASSESSMENT COMPLETE. SEE MEDITECH. PT RESTING IN BED. 3L NC IN PLACE. PT EASILY AWAKENED. CALL LIGHT IN REACH. BED IN LOW, LOCKED POSITION WITH BED ALARM ON FOR PT SAFETY. VSS AND NAD PER CONTINUOUS MONITOR AND DIRECT OBSERVATION.
[2023-07-20 05:23] LABS: HEMATOCRIT 36.8 % (35.0-50.0); HEMOGLOBIN 11.7 g/dL (12.0-18.0); MCH 27.1 (27-36); MCHC 31.9 g/dl (30-36); MCV 85.1 fl (81-99); PLATELET COUNT 337 K/uL (140-440); RBC 4.32 M/ul (4.3-5.7); RDW 14.2 (10.5-15.0)
[2023-07-20 05:30] LABS: ANION GAP 8.9 (7-21); BUN/CREATININE RATIO 29.68 (6.0-28.6); CALCIUM 9.7 mg/dL (8.5-10.1); CREATININE, SERUM 0.64 mg/dL (0.55-1.02); POTASSIUM 4.9 mmol/L (3.5-5.1)
--- NOTE | 2023-07-20 05:58 | EKG ---
[facility] [address] [place] [address] Signed Sinus tachycardia Biatrial enlargement Abnormal ECG No previous ECGs available Confirmed by TAISHA HICKEY MD ([id number]) on 07/20/2023 5:58:38 AM Electronically Signed By: TAISHA HICKEY 07/20/23 0558 PATIENT NAME: EFREM MCCLELLAN LAI Electrocardiogram DATE OF : 39 PHYSICIAN: TAISHA HICKEY REPORT #: [id number] REPORT IS CONFIDENTIAL AND NOT TO BE RELEASED WITHOUT AUTHORIZATION
[2023-07-20 07:00] LABS: BANDS, MANUAL DIFF 2; LYMPHOCYTES, MANUAL DIFF 17; MONOCYTES, MANUAL DIFF 2; NEUTROPHILS, MANUAL DIFF 79
--- NOTE | 2023-07-20 07:25 | NUR ---
REPORT FROM JB RN - PT HAD RESTFUL NIGHT O2 92-100 ON NC 3L, PT EYES CLOSED RESTING WITH CALL LIGHT.
--- NOTE | 2023-07-20 08:01 | NUR ---
MEAL TO PT - ADJUSTED NC FOR COFORT, CPT ORDERED FOR TODAY VO DR HICKEY WHO WAS HERE TO DISCUSS PLAN OF CARE. PT DENIES NEEDS - CONTINUES TO SOUND WET, COUGH AND SOB WITH EXERTION, FRAGILE AND WEAK AT BASELINE - PT REPORTS FEELING AND BREATHING BETTER - DRINKING COFFEE. CALL LIGHT IN REACH.
[2023-07-20] MEDS ORDERED: HYDROXYZINE HCL10 MG PO (10:16)
--- NOTE | 2023-07-20 10:17 | NUR ---
MED REC COMPLETE
--- NOTE | 2023-07-20 13:05 | NUR ---
warm shower cap provided to pt for am cares, bed bath, linen change.
--- NOTE | 2023-07-20 14:00 | NUR ---
pt inc of urine and stool - linen changed, primo care done, RT called for neb tx per pt request and sob with exertion. pt call light in reach and water filled, hr 93, resp 13, o2 99 4lnc
--- NOTE | 2023-07-20 14:05 | NUR ---
during primo care previously - alyvn drsg was soiled and replaced to coccyx area - skin wnl and redness looked to be improving.
--- NOTE | 2023-07-20 16:42 | NUR ---
PT REQUESTED RE[facility] RN CALLED [facility]ARMACY [facility] - HOME IS QID ALBUTEROL NEBS ORDERED. CALL TO DR EDELMIRA LANDA TO CHANGE ORDER TO PT HOME ROUTINE. RN NOTIFIED RT ISSA. PT PLEASED.
--- NOTE | 2023-07-20 19:45 | NUR ---
PT ASSESSED AND FOUND TO BE RESTING IN HOSPITAL BED. PT IS EASY TO ARROUSE, APPEARS TO BE IN NO DISTRESS WITH UNLABORED RESPIRATIONS. V/S OBTAINED AND ALARM PERAMETERS SET. CIWA ASSESSMENT PEFORMED AND BED EXIT ALARM ON. NURSE CALL LIGHT PLACED IN PTS HAND. PT DENIES ANY PAIN/DISCOMFORT AT THIS TIME. EDUCATION REGARDING ALCOHOL WITHDRAWLS PERFORMED. PT ABLE TO VERBALIZE UNDERSTANDING. PT WITH NO QUESTIONS OR CONCERNS AT THIS TIME. PT ABLE TO MOVE SELF FROM SIDE TO SIDE IN ORDER TO MAINTAIN SKIN INTEGRITY. LIGHTS DIMMED AND PT PLACED IN POSITION OF COMFORT.
--- NOTE | 2023-07-20 19:50 | NUR ---
INTO PT ROOM TO ASSESS, PT ALERT/ORINETED X4, SHE IS SITTING UP WATCHING BASEBALL GAME ON TV. SHE REPORTS PAIN IS TOLERABLE, WOULD LIKE TO HAVE THE TYLENOL LATER FOR CHRONIC PAIN TO SLEEP. SHE REPORTS SHE HAD BM, ASSESSMENT COMPLETE, JOÃO Elliott RN INTO ASSIST WITH TURNING, PT WAS ABLE TO ALSO ASSIST WITH TURNING. PT INCONTINENT OF LARGE BM AND LARGE URINE IN DEPENDS. BARRIER CREAM APPLIED TO BOTTOM, SKIN INTACT, ALLEVYN ON SACRAL INTACT. PT TURNED TO RIGHT SIDE WITH PILLOWS TO OFF LOAD BACKSIDE, ORAL CARE SUPPLIES PROVIDED.,
--- NOTE | 2023-07-20 20:30 | NUR ---
R.T. IN ROOM FOR NEB TX AT THIS TIME
--- NOTE | 2023-07-20 22:08 | NUR ---
PT REPOSITIONED, REPORTS PAIN 2-3/10 GENERALIZED CHRONIC, PAIN. TYLENOL PRN ADMINISTERED. PT HAS NO OTHER REQUESTS AT THIS TIME. DEPENDS DRY AT THIS TIME MONITOR FOR INCONTINENCE OF BOWEL AND BLADDER
--- NOTE | 2023-07-21 01:45 | NUR ---
PT ALERT, USED CALL LIGHT TO ASK FOR ASSISTANCE REACHING HER WATER, PT ASSISTED, REPOSITIONED, PT HAS INCONTINENT DEPENDS, SMALL BM AND URINE NOTED, CHANGED WITH BARRIER CREAM APPLIED. NO NEW CONCERNS, PT ON 98% ON 4L OXYGEN N.C.
--- NOTE | 2023-07-21 04:56 | NUR ---
PT RESTING QUIETLY IN BED, EYES CLOSED, RESPIRATORY RATE 20/MIN, 100% OXYGEN SATURATION ON 4L N.C.
[2023-07-21 05:00] VITALS: BP 147/61
--- NOTE | 2023-07-21 05:30 | NUR ---
PT ALERT TO RN AT BEDSIDE FOR AM CARES. ASSESSMENT, CHANGED DEPENDS OF INCONTINENCE OF URINE, REPOSITIONED TO RIGHT SIDE WITH PILLOWS. PT REPORTS COMFORTABLE AT THIS TIME. NO NEW CONCERNS THIS AM.
[2023-07-21 05:34] LABS: BASOPHILS 0.6 % (0-2); HEMATOCRIT 36.2 % (35.0-50.0); HEMOGLOBIN 11.3 g/dL (12.0-18.0); LYMPHOCYTES 4.6 % (24-44); MCH 26.9 (27-36); MCHC 31.3 g/dl (30-36); MCV 85.9 fl (81-99); MONOCYTES 7.4 % (0-12); NEUTROPHILS 87.4 % (39-80); PLATELET COUNT 312 K/uL (140-440); RBC 4.21 M/ul (4.3-5.7); RDW 14.6 (10.5-15.0)
[2023-07-21 05:43] LABS: ANION GAP 8.8 (7-21); BUN/CREATININE RATIO 39.21 (6.0-28.6); CALCIUM 9.5 mg/dL (8.5-10.1); CREATININE, SERUM 0.51 mg/dL (0.55-1.02); POTASSIUM 3.8 mmol/L (3.5-5.1)
--- NOTE | 2023-07-21 07:30 | NUR ---
REPORT RECIEVED FROM REFRIGERATION ENGINEERING TEACHER RN. PATIENT RESTING IN BED. PER REPORT PATIENT IS BED BOUND AT BASELINE. PATIENT ON 4L OVERNIGHT. PATIENT IS ON 3-4L OXYGEN AT HOME BASELINE. CALL LIGHT IN REACH AND PATIENT CALLS APPROPRIATELY.
--- NOTE | 2023-07-21 08:15 | NUR ---
PATIENT SITTING UP IN BED AND BREAKFAST SET UP AND PATIENT NOW EATING AT THSI TIME. RT CAME BY AND WILL SEE PATIENT AFTER BREAKFAST. PATIENT DENIES ANY OTHER ENEDS AT THIS TIME. FRESH WATER PROVIDED. WILL GIVE PATIENT MEDICATIONS AFTER BREAKFAST.
[2023-07-21 08:45] VITALS: BP 159/61
[2023-07-21] MEDS ORDERED: MUCINEX600 MG PO (09:39)
[2023-07-21] MEDS ORDERED: PREDNISONE20 MG PO (09:40)
[2023-07-21] MEDS ORDERED: AZITHROMYCIN500 MG PO (09:42)
[2023-07-21] MEDS ORDERED: CEFDINIR300 MG PO (09:42)
--- NOTE | 2023-07-21 10:30 | NUR ---
MD IN TO SEE PATIENT AND REVIEWED PLAN OF CARE WITH PATIENT. THIS RN WILL ARRANGE TRANSPORT FOR PATIENT.
--- NOTE | 2023-07-21 10:39 | NUR ---
PATIENT SITTING UP WATCHING TV. REVIEWED PLAN OF CARE WITH PATIENT AND THAT PATIENT WILL DC HOME TODAY. PATIENT AGREEABLE TO PLAN OF CARE. PATIENT STATED "I CAN SIT IN A WHEELCHAIR FOR TRANSPORT". CONTACTED LOCAL COMPANY AND WHEELCHAIR [facility] IS AVAILABLE. PATIENTS FAMILY WILL BE ABLE TO MEET [facility] RIDE AT PATIENTS HOME AT 1215 UPON DISCHARGE. PATIENT DENIES ANY OTHER QUESTIONS AT THIS TIME.
[2023-07-21] MEDS ORDERED: BENZONATATE100 MG PO (11:03)
[2023-07-21 11:40] VITALS: BP 169/77
--- NOTE | 2023-07-21 11:50 | NUR ---
RT IN TO DO NEB TREATMENT PRIOR TO TRANSFER TO WHEELCHAIR. PATIENT DENIED LUNCH THIS AFTERNOON.
--- NOTE | 2023-07-21 12:00 | NUR ---
THIS RN IN TO REVIEW DC INSTRUCTIONS. PATIENT EDUCATED ON DISCHARGE MATERIALS. PATIENT WILL CALL SUNDAY AND MAKE FOLLOW-UP APT. PATIENT STATES "IM IN CHARGE OF MY OWN MEDS". PHARMACY WAS IN TO REVIEW INSTRUCTIONS. PATIENTS FAMILY OR CAREGIVER WILL GO [employer]ER NEW PRESCRIPTIONS THIS CLAIRE. ALL BELONGINS GATHERED AND PLACED IN GREEN BAG. PATIENT REQUESTED TO HAVE HER PHONE PLACED IN GREEN BAG. PATIENT CHANGED AND DRESSED WITH THIS RNS ASSIST. IV DC'D. 2 CARGOMAN ASSISTED PATIENT OUT OF BED AND INTO TRANSPORT WHEELCHAIR. PATIENT PLACED ON HOME OXYGEN. PATIENT HAS HER PERSONAL BLANKET ON HER LAP. AWAITING TRANSPORT VEHICLE AT THIS TIME. PATIENT TOELRATED ACTIVITY WELL. PATIENT VERY APPRECIATIVE OF HER CARE.
--- NOTE | 2023-07-21 13:52 | NUR ---
TRANSPORT VEHICLE HERE. THIS RN PUSHED PATIENT TO THE FRONT AND CEMENT CRUSHER OPERATOR ASSISTED PATIENT INTO THE VAN. ALL BELONGINS SENT WITH PATIENT. NO OTHER QUESTIONS AT THIS TIME.
== END 2023-07-21 12:10 | disposition home or self-care (01) | DRG 193 ==
LOC: ED 12:38 → CCU 16:00
PROVIDERS: Emergency Medicine; ADMIT Family Medicine; ATTEND Family Medicine
DX: J18.9 Pneumonia, unspecified organism (principal); J96.21 Acute and chronic respiratory failure with hypoxia; J44.1 Chronic obstructive pulmonary disease with (acute) exacerbation; R64 Cachexia; Z68.1 Body mass index [BMI] 19.9 or less, adult; J44.0 Chronic obstructive pulmonary disease with (acute) lower respiratory infection; Z20.822 Contact with and (suspected) exposure to COVID-19; Z66 Do not resuscitate; E03.9 Hypothyroidism, unspecified; Z88.0 Allergy status to penicillin; Z99.81 Dependence on supplemental oxygen; Z88.8 Allergy status to other drugs, medicaments and biological substances; Z91.048 Other nonmedicinal substance allergy status; Z87.891 Personal history of nicotine dependence; Z90.49 Acquired absence of other specified parts of digestive tract; Z90.89 Acquired absence of other organs; Z98.890 Other specified postprocedural states; Z90.710 Acquired absence of both cervix and uterus; Z79.890 Hormone replacement therapy; Z79.899 Other long term (current) drug therapy
CPT/HCPCS: 36415; 71045; 80048; 80053; 83605; 83735; 84484; 85025; 87040; 87502; 93005; 93010; 94640; 94667; 94668; 94760; 96365; 96375; 99285-25; A9270; C9803; J0696; J2405; J2930; J7512; U0002

== ENCOUNTER 2025-01-27 10:13 | Inpatient (IN) | payer MEDICARE, OTHER ==
[~2025-01-27] VITALS: Ht 162.6 cm; Wt 44.0 kg
[~2025-01-27 10:13] MED LIST changes: +AZITHROMYCIN250 MG PO; +AZITHROMYCIN500 MG PO; +BENZONATATE100 MG PO; +CEFDINIR300 MG PO; +HYDROXYZINE HCL10 MG PO; +MUCINEX600 MG PO; +TYLENOL EXTRA500 M2 PO
[2025-01-27] MEDS ORDERED: methylPREDNISolone SOD SUCC 125 MG/2 ML VIAL IV ONE (10:30)
[2025-01-27] MEDS ORDERED: ALBUTEROL SULFATE 0.5% 2.5 MG/0.5 ML VIAL INH ONE ×2 (10:30→12:45)
[2025-01-27] MEDS ORDERED: IPRATROPIUM BROMIDE 2.5 ML VIAL INH ONE (10:30)
[2025-01-27] MEDS ORDERED: SODIUM CHLORIDE 0.9% 500 ML IV PRN (10:30)
[2025-01-27 10:33] LABS: BASOPHILS 0.4 % (0-2); EOSINOPHILS 3.4 % (0-6); HEMATOCRIT 34.6 % (35.0-50.0); HEMOGLOBIN 11.4 g/dL (12.0-18.0); MCH 28.7 (27-36); MCHC 32.8 g/dl (30-36); MCV 87.5 fl (81-99); MONOCYTES 16.3 % (0-12); NEUTROPHILS 66.9 % (39-80); PLATELET COUNT 342 K/uL (140-440); RBC 3.96 M/ul (4.3-5.7); RDW 13.8 (10.5-15.0)
[2025-01-27 10:56] LABS: ALBUMIN 2.7 g/dL (3.4-5.0); ALBUMIN/GLOBULIN RATIO 0.56 (1.1-2.4); BILIRUBIN, TOTAL 0.3 mg/dL (0.2-1.0); BUN/CREATININE RATIO 15.87 (6.0-28.6); CALCIUM 10.4 mg/dL (8.5-10.1); CREATININE, SERUM 0.63 mg/dL (0.55-1.02); PROTEIN, TOTAL 7.5 g/dL (6.4-8.2)
[2025-01-27 11:24] LABS: CORONAVIRUS COVID-19 AG NEGATIVE (NEGATIVE); INFLUENZA A AG NEGATIVE (NEGATIVE); INFLUENZA B AG NEGATIVE (NEGATIVE)
[2025-01-27] MEDS ORDERED: levoFLOXacin 750 MG TAB PO ONE (15:30)
[2025-01-27] MEDS ORDERED: SODIUM CHLORIDE 0.9% 1,000 ML IV SCH (15:45)
[2025-01-27] MEDS ORDERED: ACETAMINOPHEN 325 MG TAB PO PRN (15:45)
[2025-01-27] MEDS ORDERED: ondansetron HCL 4 MG/2 ML VIAL IV PRN (15:45)
--- NOTE | 2025-01-27 16:12 | EKG ---
[facility] [address] [place] [address] Signed Normal sinus rhythm Normal ECG When compared with ECG of 06-FEB-2024 19:01, No significant change was found Confirmed by Karol Bazan MD () on 01/27/2025 4:11:55 PM Electronically Signed By: KAROL BAZAN MD 01/27/25 1612 PATIENT NAME: EAV MCCLELLANSHEELA HOYT Electrocardiogram DATE OF : 39 PHYSICIAN: KAROL BAZAN MD REPORT #: [id number] REPORT IS CONFIDENTIAL AND NOT TO BE RELEASED WITHOUT AUTHORIZATION
[2025-01-27] MEDS ORDERED: ALBUTEROL SULFATE 0.083% 3 ML VIAL INH PRN (16:30)
[2025-01-27 16:51] VITALS: BP 165/60
[2025-01-27] MEDS ORDERED: AZITHROMYCIN 500 MG in DEXTROSE 5% 250 ML IV SCH (17:30)
[2025-01-27] MEDS ORDERED: BENZONATATE 100 MG CAP PO PRN (17:30)
[2025-01-27] MEDS ORDERED: guaiFENesin 600 MG TABCR PO PRN (17:30)
--- NOTE | 2025-01-27 18:03 | NUR ---
PT ARRIVES TO MED-SURG VIA STRETCHER AT 1642. VERBAL REPORT RECEIVED FROM YENI CARABALLO AND MO. PT AWAKE AND ALERT. TRANSFERRED TO BED VIA SLIDE SHEET, PT TOLERATES THIS POOR WITH SOB. PT ON 3 LPM O2 VIA NC. HR SINUS TACHYCARDIA. PT DENIES PAIN AT THIS TIME. REPORT CHAIRFAST FOR THE LAST YEAR, REPORT UNABLE TO WALK. PT ORIENTED TO ROOM, TELEPHONE, BED AND CALL LIGHT. NS CONINTUOUS INFUSION STARTED, SEE [facility]. ADMISSION ASSESSMENT COMPLETE. PT REPOSITIONED IN BED, TOLERATES THIS POOR, REQUIRES 4.5 LPM O2 TO RECOVER, TITRATED BACK DOWN TO 3 LPM. PT HAS NO REQUESTS AT THIS TIME.
--- NOTE | 2025-01-27 19:10 | NUR ---
REPORT RECEIVED FROM SISSY JAIME. BOARD UPDATED. pt DENIES ANY OTHER NEEDS AT THIS TIME. CALL LIGHT WITHIN REACH.
[2025-01-27] MEDS ORDERED: ALBUTEROL/IPRATROPIUM 3 ML NEB INH SCH (20:00)
[2025-01-27] MEDS ORDERED: BUDESONIDE 0.5 MG/2 ML VIAL INH SCH (20:00)
[2025-01-27 20:41] VITALS: BP 139/65
[2025-01-27 20:56] VITALS: BP 139/65
[2025-01-27] MEDS ORDERED: MELATONIN 3 MG TAB PO PRN (21:00)
--- NOTE | 2025-01-27 21:00 | NUR ---
ASSESSMENT AND VITAL SIGNS DONE. pt BRIEF CHANGED. PURE WICK PLACED. pt ON 3LNC SATTING AT 93%. pt DENIES ANY OTHER NEEDS AT THIS TIME. CALL LIGHT WITHIN REACH. LUNG SOUNDS CLEAR. WATER REFRESHED.
--- NOTE | 2025-01-27 23:38 | NUR ---
pt RESTING IN THE BED WITH EYES CLOSED. RR EVEN AND UNLABORED. CALL LIGHT WITHIN REACH.
[2025-01-28] VITALS (11 sets, daily range): BP systolic 141–153; BP diastolic 55–63
--- NOTE | 2025-01-28 01:27 | NUR ---
pt RESTING IN THE BED WITH EYES CLOSED. RR EVEN AND UNLABORED. CALL LIGHT WITHIN REACH.
--- NOTE | 2025-01-28 02:05 | NUR ---
VITAL SIGNS AND ASSESSMENT DONE. LUNG SOUNDS ARE CLEAR. PURE WICK IN PLACE. pt DENIES ANY OTHER NEEDS AT THIS TIME. CALL LIGHT WITHIN REACH.
--- NOTE | 2025-01-28 03:30 | NUR ---
pt CPOX ALARMING. pt SATTING AT 85%. pt 02 INCREASED TO 4LNC AND pt ENCOURAGED TO TAKE DEEP BREATHS. pt O2 INCREASED TO 91%. pt O2 DECREASED TO 3LNC AND pt SATTING AT 92%. pt DENIES ANY OTHER NEEDS AT THIS TIME. CALL LIGHT WITHIN REACH.
[2025-01-28 05:04] LABS: PH, VENOUS 7.355 (7.31-7.41)
[2025-01-28 05:06] LABS: BASOPHILS 0.1 % (0-2); EOSINOPHILS 0.1 % (0-6); HEMATOCRIT 32.2 % (35.0-50.0); HEMOGLOBIN 10.4 g/dL (12.0-18.0); LYMPHOCYTES 6.6 % (24-44); MCH 28.4 (27-36); MCHC 32.3 g/dl (30-36); MCV 87.9 fl (81-99); MONOCYTES 9.7 % (0-12); NEUTROPHILS 83.5 % (39-80); PLATELET COUNT 318 K/uL (140-440); RBC 3.67 M/ul (4.3-5.7); RDW 13.6 (10.5-15.0)
--- NOTE | 2025-01-28 05:07 | NUR ---
IN RM TO DO VITAL SIGNS. NEW PURE WICK PLACED. pt SATTING AT 98% ON 3LNC. pt DENIES ANY OTHER NEEDS AT THIS TIME. CALL LIGHT WITHIN REACH.
[2025-01-28 05:23] LABS: ALBUMIN 2.4 g/dL (3.4-5.0); ALBUMIN/GLOBULIN RATIO 0.57 (1.1-2.4); ANION GAP 1.8 (7-21); BILIRUBIN, TOTAL 0.2 mg/dL (0.2-1.0); BUN/CREATININE RATIO 19.23 (6.0-28.6); CALCIUM 9.8 mg/dL (8.5-10.1); CREATININE, SERUM 0.52 mg/dL (0.55-1.02); MAGNESIUM 1.6 mg/dL (1.8-2.4); PHOSPHORUS, INORGANIC 3.4 mg/dL (2.5-4.9); POTASSIUM 4.8 mmol/L (3.5-5.1); PROTEIN, TOTAL 6.6 g/dL (6.4-8.2)
--- NOTE | 2025-01-28 07:06 | NUR ---
REPORT RECEIVED FROM ARC WELDER APPRENTICE RN BEN. PATIENT IS LYING IN BED WITH EYES CLOSED AND RESPIRATIONS ARE EVEN AND UNLABORED. PATIENT WITH NC IN THE MOUTH. ARC WELDER APPRENTICE RN STATES THAT IS HOW THE PATIENT LIKES IT. CPOX AT BEDSIDE. CALL LIGHT AND PERSONAL BELONGINGS ARE WITHIN REACH.
[2025-01-28] MEDS ORDERED: MAGNESIUM SULFATE 2 GM/50 ML BAG IV ONE (07:45)
--- NOTE | 2025-01-28 07:58 | NUR ---
UR CLINICAL REVIEW: 2 [place] FOR VERSALUS-PER WASH OIL PUMP OPERATOR MEETS INPT FOR COPD WITH NEED FOR IV ABX/RT MEDICARE INPT 01/27/25 @ 1557 ORDER MATCHES REG NO AUTH REQUIRED PER MEDICARE GUIDELINES DISCHARGE TO HOME WHEN STABLE
--- NOTE | 2025-01-28 08:39 | NUR ---
0900 MEDICATIONS ADMINISTERED PER THE [facility]. PATIENT RMAINS ON O2 BY NC. MARTINOX AT BEDSIDE. PATIENT STATED NO FURTHER NEEDS AT THIS TIME. CALL LIGHT AND PERSONAL BELONGINGS ARE WITHIN REACH.
[2025-01-28] MEDS ORDERED: levoFLOXacin 750 MG TAB PO SCH (09:00)
[2025-01-28] MEDS ORDERED: predniSONE 20 MG TAB PO SCH (09:00)
[2025-01-28] MEDS ORDERED: ENOXAPARIN SODIUM 40 MG/0.4 ML SYR SUB-Q SCH (09:00)
--- NOTE | 2025-01-28 09:35 | NUR ---
PATIENT IS LYING IN BED WITH HOB ELEVATED. PATIENT WITH EYES OPEN AND RESPIRATIONS ARE EVEN AND UNLABORED. PATIENT IS WATCHING A BASEBALL GAME. FULL ASSESSMENT COMPLETE AND DOCUMENTED IN THE CHART. PATIENT IS ALERT AND ORIENTED TIMES FOUR. PUREWICK IN PLACE. PATIENT IS CHAIR FAST BASELINE. GENERALIZED WEAKNESS NOTED. IV FLUSHED WITH 10 ML NORMAL SALINE AND NS IS INFUSING AT 125 ML/HR. IV DRESSING IS CLEAN, DRY, AND INTACT. PATIENT WITH NO COMPLAINTS OF PAIN OR NAUSEA. PATIENT IS ON A REGULAR DIET WITH SOFT AND BITE SIZED TEXTURE. BOWEL TONES ARE ACTIVE IN ALL FOUR QUADRANTS. LAST BM WAS 01/26/25. SKIN IS DRY AND VERY FRAGILE. SKIN TEAR NOTED TO THE LEFT LEG WITH DRESSING CLEAN, DRY, AND INTACT. SKIN WITH SCATTERED BRUISING AND SCABS NOTED. PATIENT IS ON 3 L NC WHICH IS CHRONIC. CPOX AT BEDSIDE. LUNG SOUNDS ARE CLEAR THROUGHOUT. PATIENT REPORTS BEING A LITTLE SHORT OF BREATH. CARDIAC WITH NORMAL S1 AND S2 ON AUSCULTATION. RADIAL AND RIGHT PEDAL PULSE IS STRONG. LEFT PEDAL PULSE IS FAINT. BLE ARE COOL TO THE TOUCH. CAPILLARY REFILL IN THE UPPER AND LOWER EXTREMITIES IS LESS THAN 3 SECONDS BILATERALLY. NO EDEMA NOTED. SENSATION INTACT WITH NO COMPLAINTS OF NUMBNESS OR TINGLING. PATIENT STATED NO FURTHER NEEDS AT THIS TIME. CALL LIGHT AND PERSONAL BELONGINGS ARE WITHIN REACH.
--- NOTE | 2025-01-28 10:05 | NUR ---
Spoke with Beulah. She states she lives in a mobile home. She is Housebound and wc bound. States she spends her days in her recliner. She has 4 caregivers who stay for 12 hrs during the day. She is alone at night by her choice. She declines a Life Alert. She does not have concerns to stay alone at night. Daughter does her shopping and assists as needed. CG provide full care. She denies financial or safety concerns. She has 02 from [facility].
--- NOTE | 2025-01-28 10:30 | NUR ---
PATIENT IS LYING IN BED WITH HOB ELEVATED. NC IN PLACE. PATIENT WITH NO COMPLAINTS OF SOB. PATIENT IS WATCHING TV. IV FLUIDS DISCONTINUED. IV FLUSHED WITH 10 ML NORMAL SALINE AND IS SALINE LOCKED. IV DRESSING IS CLEAN, DRY, AND INTACT. IV PUMP CLEARED OF INTAKE FLUIDS. PATIENT STATED NO FURTHER NEEDS AT THIS TIME. CALL LIGHT AND PERSONAL BELONGINGS ARE WITHIN REACH.
--- NOTE | 2025-01-28 11:07 | NUR ---
medications reconciled using pharmacy records and patient interview
--- NOTE | 2025-01-28 11:09 | NUR ---
RT IS IN THE ROOM AT THIS TIME AND ADMINISTERING A BREATHING TREATMENT. TV IS ON. CALL LIGHT AND PERSONAL BELONGINGS ARE WITHIN REACH.
[2025-01-28] MEDS ORDERED: hydrOXYzine pamoate 25 MG CAP PO PRN ×2 (11:30→11:45)
--- NOTE | 2025-01-28 11:39 | NUR ---
NOTIFIED OF PATIENT REPORTING "NOT BEING ABLE TO BREATH". MD CAME TO BEDSIDE. PRN MUCINEX ADMINISTERED PER THE EMAR. MD STATED TO GIVE VISTARIL WHEN AVAILABLE. PATIENT IS ON 4 L NC. CPOX AT BEDSIDE. MD STATED HE WOULD CALL RT. PATIENT STATED NO FURTHER NEEDS AT THIS TIME. CALL LIGHT AND PERSONAL BELONGINGS ARE WITHIN REACH.
--- NOTE | 2025-01-28 11:50 | NUR ---
PRN HYDROXYZINE ADMINISTERED PER THE EMAR. RT IS IN THE ROOM AT THIS TIME AND SETTING UP THE VAPOTHERM. PATIENT STATED NO FURTHER NEEDS AT THIS TIME. TV IS ON. CALL LIGHT AND PERSONAL BELONGINGS ARE WITHIN REACH.
[2025-01-28] MEDS ORDERED: PHARMACY RENAL DOSE ADJUSTMENT 1 DOSE MISC PO SCH (12:00)
--- NOTE | 2025-01-28 12:10 | NUR ---
VISITED DURING SPIRITUAL CARE ROUNDS. PT APPEARED TO BE SLEEPING. DID NOT DISTURB. PROVIDED PRAYER.
--- NOTE | 2025-01-28 12:11 | NUR ---
PATIENT IS LYING IN BED WITH HOB ELEVATED. PATIENT REMAINS ON VAPOTHERM. PATIENT APPEARS MORE COMFORTABLE. TV IS ON. PATIENT WITH EYES OPEN AND RESPIRATIONS ARE EVEN AND UNLABORED. LUNCH TRAY DELIVERED. CALL LIGHT AND PERSONAL BELONGINGS ARE WITHIN REACH.
--- NOTE | 2025-01-28 13:19 | NUR ---
PATIENT IS LYING IN BED WITH THE HOB ELEVATED. PATIENT WITH VAPOTHERM AND NC IN PLACE. PATIENT IS SPEAKING WITH A VISITOR AT BEDSIDE. TV IS ON. CALL LIGHT AND PERSONAL BELONGINGS ARE WITHIN REACH.
--- NOTE | 2025-01-28 14:26 | NUR ---
PATIENT IS LYING IN BED WITH HOB ELEVATED. PATIENT WITH EYES OPEN AND RESPIRATIONS ARE EVEN AND UNLABORED. PATIENT IS WATCHING BASEBALL. VAPOTHERM AND NC IN PLACE. PATIENT STATED NO NEEDS AT THIS TIME. CALL LIGHT AND PERSONAL BELONGINGS ARE WITHIN REACH.
--- NOTE | 2025-01-28 15:57 | NUR ---
1600 MEDICATIONS ADMINISTERED PER EMAR. PATIENT LYING IN BED WITH HOB ELEVATED WATCHING BASEBALL. VAPOTHERM AND NC IN PLACE. PUREWICK IN PLACE. VASCULAR ASSESSMENT DONE WITH NS FLUSH, IV WNL. PATIENT REPORTED NO PAIN AT THIS TIME. UPPER LUNG LOBES CLEAR AND LOWER LUNG LOBES CRACKLES HEARD WITH AUSCULTATION BILATERALLY. CALL LIGHT AND PERSONAL BELONGINGS WITHIN REACH.
--- NOTE | 2025-01-28 16:10 | NUR ---
PATIENT WAS IN BED AT THIS TIME, CICI ALMANZA AND I ASSISTED IN CHANGING HER PUREWICK AND BREIF. CALL LIGHT WITH IN REACH AND NOTHING ELSE NEEDED AT THIS TIME.
--- NOTE | 2025-01-28 16:24 | NUR ---
SYD ELAINE, IN ROOM WITH THE PATIENT AT THIS TIME. ACAPELLA IN PATIENT'S HAND. PATIENT LYING IN BED WITH HOB ELEVATED. CALL LIGHT AND PERSONAL BELONGINGS WITHIN REACH.
--- NOTE | 2025-01-28 17:17 | NUR ---
PATIENT IS LYING IN BED WITH HOB ELEVATED WATCHING TV. SHE IS EATING ICE CREAM. VAPOTHERM AND NC IN PLACE. FREDI ALMANZA CNA, IS IN THE ROOM AT THIS TIME. CALL LIGHT AND PERSONAL BELONGINGS WITHIN REACH.
[2025-01-28] MEDS ORDERED: SODIUM CHLORIDE 0.9% 1,000 ML IV SCH (18:15)
--- NOTE | 2025-01-28 18:30 | NUR ---
PATIENT IS LYING IN BED WITH HOB ELEVATED. PATIENT WITH EYES OPEN AND RESPIRATIONS ARE EVEN AND UNLABORED. TV IS ON. VAPOTHERM AND NC IN PLACE. CPOX IN PLACE. CALL LIGHT AND PERSONAL BELONGINGS ARE WITHIN REACH.
--- NOTE | 2025-01-28 19:10 | NUR ---
REPORT RECEIVED FROM LISA JAIME. pt RESTING IN THE BED. VAPOTHERM ON. 3LNC ON. BOARD UPDATED. pt DENIES ANY OTHER NEEDS AT THIS TIME. CALL LIGHT WITHIN REACH.
--- NOTE | 2025-01-28 20:50 | NUR ---
ASSESSMENT AND VITAL SIGNS DONE. pt ON THE VAPO THERM AT 14L AND 24%. AND 3LNC. LUNG SOUNDS ARE CLEAR. pt DENIES ANY OTHER NEEDS AT THIS TIME. CALL LIGHT WITHIN REACH. WATER REFRESHED.
--- NOTE | 2025-01-28 20:57 | NUR ---
PT KNOWN TO THIS RN. A/O, VS AND I/O COMPLETED. PRIMARY RN INTO ROOM. GARBAGES EMPTIED, FRESH ICE WATER GIVEN.
--- NOTE | 2025-01-28 22:45 | NUR ---
IN RM TO HELP pt. pt CALLED. pt STATES SHE JUST CANT GET COMFORTABEL AND WOULD LIKE A BOOST. pt BOOSTED IN THE BED WITH THE ASSISTANCE OF THE AIR CARRIER OPERATIONS INSPECTOR. pt STATES SHE IS FEELING ANXIOUS. PRN MEDS ADMINISTERED. pt DENIES ANY OTHER NEEDS AT TIME. CALL LIGHT WITHIN REACH. CPOX ON.
--- NOTE | 2025-01-28 23:22 | NUR ---
CURRENTLY EFREM IS ON A VAPOTHERMN HFNC 14L FIO2 24% WITH A 3L NC IN HER MOUTH.
[2025-01-29] VITALS (9 sets, daily range): BP systolic 137–165; BP diastolic 59–76
--- NOTE | 2025-01-29 00:01 | NUR ---
pt RESTING IN THE BED WITH EYES CLOSED. RR EVEN AND UNLABORED. CALL LIGHT WITHIN REACH.
--- NOTE | 2025-01-29 02:42 | NUR ---
HECTOR CHANGED, PT THOUGHT SHE HAD A BM, WITH ASSIST OF PRIMARY RN, LINENS CHANGED UNDER PATIENT. NO BM.
--- NOTE | 2025-01-29 02:43 | NUR ---
THIS RN AND HELPING HANDS RN IN RM TO ASSISST pt. WHILE ROLLING THE pt AND pts O2 DROPPED TO 60'S WE TOOK A BREAK AND INTRUCTED TO THE pt TO TAKE DEEP BREATHS pt O2 BEGAN TO RECOVER BUT SLOWLY. RT CALLED TO THE ROOM TO HELP INCREASE THE SETTINGS ON THE VAPO THERM AND HELP INCREASE THE pt O2 QUICKER. CENTRIFUGE OPERATOR CAME IN THE RM AND ASSISTED WITH THE VAPOTHERM SETTINGS AND RT SHOWED UP TO HELP WITH THE PATIENT WELL. pt RECOVERED AND IS NOW SATTING AT 93% ON 14L 24% ON THE VAPOTHERM IN HER NOSE AND 3LNC IN HER MOUTH. pt DENIES ANY OTHER NEEDS AT THIS TIME. CALL LIGHT WITHIN REACH.
--- NOTE | 2025-01-29 05:10 | NUR ---
VITAL SIGNS DONE. pt RESTING IN THE BED. pt SATTING AT 93% ON 4LNC AND 14L AND 24% ON THE VAPOTHERM pt DENIES ANY OTHER NEEDS AT THIS TIME. CALL LIGHT WITHIN REACH.
--- NOTE | 2025-01-29 05:10 | NUR ---
LAB IN ROOM TO DRAW BLOOD. THIS RN INTO ROOM VS, AND I/O COMPLETED. PT WITH NO EXPRESSED NEEDS.
[2025-01-29 05:14] LABS: BASOPHILS 0.2 % (0-2); EOSINOPHILS 0.3 % (0-6); HEMATOCRIT 34.7 % (35.0-50.0); HEMOGLOBIN 11.1 g/dL (12.0-18.0); LYMPHOCYTES 7.1 % (24-44); MCH 27.9 (27-36); MCV 86.9 fl (81-99); MONOCYTES 10.3 % (0-12); NEUTROPHILS 82.1 % (39-80); PLATELET COUNT 364 K/uL (140-440); RBC 3.99 M/ul (4.3-5.7); RDW 13.7 (10.5-15.0)
[2025-01-29 05:37] LABS: ALBUMIN 2.4 g/dL (3.4-5.0); ALBUMIN/GLOBULIN RATIO 0.56 (1.1-2.4); BILIRUBIN, TOTAL 0.3 mg/dL (0.2-1.0); BUN/CREATININE RATIO 17.74 (6.0-28.6); CALCIUM 9.6 mg/dL (8.5-10.1); CREATININE, SERUM 0.62 mg/dL (0.55-1.02); PROTEIN, TOTAL 6.7 g/dL (6.4-8.2)
--- NOTE | 2025-01-29 07:00 | NUR ---
REPORT RECEIVED FROM MECHANICAL INTEGRITY ENGINEER YENI CONTRERAS. PATIENT IS LYING IN BED WITH EYES CLOSED AND RESPIRATIONS ARE EVEN AND UNLABORED. HOB ELEVATED. NC IN THE MOUTH WITH THE VAPOTHERM ON 14L AT 24% IN THE NOSE. CALL LIGHT AND PERSONAL BELONGINGS ARE WITHIN REACH.
--- NOTE | 2025-01-29 07:34 | NUR ---
BLOOD SUGAR RECHECKED AT 0730. READING WAS 83. CHARGE NURSE KALYN NOTIFIED.
--- NOTE | 2025-01-29 08:23 | NUR ---
PATIENT IS CURRENTLY DOING A BREATHING TREATMENT WITH RT.
--- NOTE | 2025-01-29 08:26 | NUR ---
MD NOTIFIED OF PATIENT STATED NOT DOING GREAT. PATIENT REFUSING HYDROXYZINE AT THIS TIME DUE TO "STUFF JUMPING OUT AT ME". MD STATED HE WOULD COME IN TO SEE HER. NO NEW ORDERS AT THIS TIME.
--- NOTE | 2025-01-29 08:39 | NUR ---
PATIENT IN BED AT THIS TIME. THIS CREATIVE PERFUMER EMPTIED PUREWICK CANNISTER. CALL LIGHT WITHIN REACH, RESPIRATORY THERAPY IN AT THIS TIME. NO FURTHER NEEDS AT THIS TIME.
--- NOTE | 2025-01-29 08:46 | NUR ---
0900 MEDICATIONS GIVEN PER EMAR. PATIENT IS LYING IN BED WITH HOB ELEVATED, BREAKFAST TRAY IN FRONT OF HER. NS RUNNING AT 75ML/HR. PATIENT HAS NC AT 3L AND VAPOTHERM AT 10L/M AND 24%. PATIENT'S O2 IS IN THE HIGH 80S TO LOW 90S. SHE HAD TROUBLE CATCHING HER BREATH WITH ORAL MEDICATION ADMINISTRATION. HYDROXYZINE WAS REFUSED DUE TO HAVING HALLUNICATIONS THE NIGHT BEFORE AFTER A DOSE. PRIMARY RN SPOKE WITH MD. CALL LIGHT AND PERSONAL BELONGINGS WITHIN REACH.
[2025-01-29] MEDS ORDERED: LEVOTHYROXINE SODIUM 25 MCG TAB PO SCH (09:00)
--- NOTE | 2025-01-29 09:00 | NUR ---
VAPOTHERM INCREASED TO 17 L AND 24%. NEW NASAL CANNULA PLACED AND IS IN THE PATIENT MOUTH. PATIENT WITH CPOX AT BEDSIDE AND SATTING 89%. PATIENT BREAKFAST TRAY REMOVED PER PATIENT REQUEST. PATIENT STATED NO FURTHER NEEDS AT THIS TIME. CALL LIGHT AND PERSONAL BELONGINGS ARE WITHIN REACH.
--- NOTE | 2025-01-29 09:20 | NUR ---
Pt resting in bed with vapotherm in place. C/o of low blood sugar. States she just got off the phone with her daughter. Denies needs. Not feeling well today.
--- NOTE | 2025-01-29 10:15 | NUR ---
PATIENT IS LYING IN BED WITH HOB ELEVATED. PATIENT IS ON 3L NC IN THE MOUTH WITH THE VAPOTHERM IN THE NOSTRILS AT 16 L AND 24%. FULL ASSESSMENT COMPLETE AND DOCUMENTED IN THE CHART. PATIENT IS ALERT AND ORIENTED TIMES FOUR. LAST BM WAS 01/26/25. PATIENT WITH NO COMPLAINTS OF PAIN OR NAUSEA. PATIENT REPORTS SOB. PUREWICK AND BRIEF CHANGED AT THIS TIME. PATIENT TOLERATED WELL. PATIENT WITH GENERALIZED WEAKNESS NOTED. IV SITE FLUSHED WITH 10 ML NORMAL SALINE AND NS IS INFUSING AT 75 ML/HR. IV DRESSING IS CLEAN, DRY, AND INTACT. PATIENT IS ON A REGULAR DIET WITH A SOFT AND BITE SIZED TEXTURE. BOWEL TONES ARE ACTIVE IN ALL FOUR QUADRANTS. POOR APPETITE NOTED. SKIN TEAR NOTED TO THE LEFT LOPEZ THAT IS CLEAN, DRY, AND INTACT. REDNESS NOTED TO THE COCCYX THAT IS BLANCHABLE. LUNG SOUNDS WITH INSPIRATORY WHEEZES THROUGHOUT. PATIENT WITH A PRODUCTIVE COUGH. CARDIAC WITH NORMAL S1 AND S2 ON AUSCULTATION. RADIAL AND R PEDAL PULSE IS STRONG. LEFT PEDAL PULSE IS FAINT. CAPILLARY REFILL IN THE UPPER AND LOWER EXTREMITIES IS LESS THAN 3 SECONDS. NO EDEMA NOTED. SENSATION INTACT WITH NO COMPLAINTS OF NUMBNESS OR TINGLING. PATIENT STATED NO FURTHER NEEDS. CALL LIGHT AND PERSONAL BELONGINGS ARE WITHIN REACH.
--- NOTE | 2025-01-29 10:23 | NUR ---
RT NOTIFIED OF PATIENT WITH WORK OF BREATHING. RT STATED SHE WOULD BE DOWN THAT WAY SOON. CALL ENDED.
[2025-01-29] MEDS ORDERED: MORPHINE SULFATE 4 MG/ML VIAL IV PRN (11:00)
--- NOTE | 2025-01-29 11:03 | NUR ---
VISITED DURING SPIRITUAL CARE ROUNDS. PT REQUESTED PRAYER FOR HEALING, COMFORT. SOFTWARE RELEASE MANAGER PROVIDED SUPPORTIVE PRESENCE, HOSPITALITY, PRAYER, FACILITATED INTERACTION WITH THERAPY ANIMAL. PT EXPRESSED GRATITUDE.
--- NOTE | 2025-01-29 11:21 | NUR ---
PATIENT IS LYING IN BED WITH HOB ELEVATED. PATIENT WITH NC IN THE MOUTH AND VAPOTHERM IN THE NOSE. PATING WITH EYES OPEN AND RESPIRATIONS ARE EVEN AND UNLABORED. PATIENT IS WATCHING TV. CALL LIGHT AND PERSONAL BELONGINGS ARE WITHIN REACH.
--- NOTE | 2025-01-29 12:07 | NUR ---
PATIENT IS LYING IN BED WITH HOB ELEVATED. SHE IS WATCHING TV. PATIENT HAS EVEN UNLOABORED RESPIRATIONS, VAPOTHERM IN PLACE. PATIENT HAS NC IN MOUTH. CALL LIGHT AND PERSONAL BELONGINGS WITHIN REACH.
--- NOTE | 2025-01-29 12:16 | NUR ---
PATIENT AMBULATING THE HALLWAYS. PATIENT DENIES NUMBNESS OR FEELING LIGHTHEADED. PATIENT'S GAIT IS STEADY AND NOT IMPULSIVE. PATIENT WITH NOT COMPLAINTS OF PAIN AT THIS TIME. TOLERATING AMBULATION WELL.
--- NOTE | 2025-01-29 13:27 | NUR ---
VITAL SIGNS TAKEN AND DOCUMENTED IN THE CHART BY GI, STUDENT NURSE. IV FLUIDS DISCONTINUED. IV FLUSHED WITH 10 ML NORMAL SALINE AND IS SALINE LOCKED. IV DRESSING IS CLEAN, DRY, AND INTACT. PATIENT STATED SHE IS ON 5-7 L NC AT HOME. PATIENT REMAINS ON THE VAPOTHERM AND THE NC AT THIS TIME. PATIENT STATED NO FURTHER NEEDS AT THIS TIME. CALL LIGHT AND PERSONAL BELONGINGS ARE WITHIN REACH.
--- NOTE | 2025-01-29 14:46 | NUR ---
PATIENT IS LYING IN BED WITH HOB ELEVATED WATCHING TV. VAPOTHERM AND NC 3L IN PLACE. PATIENT'S RESPIRATORY EFFORT HAS DECREASED.PATIENT HAS EVEN UNLABORED RESPIRATIONS. VAPOTHERM AT 20L/MIN AT 28%.DRESSING ON LEFT LOPEZ IS CLEAN, DRY, AND INTACT. IV IS SALINE LOCKED AND WNL. LUNGS ARE CLEAR THROUGHOUT. PATIENT DENIES SHORTNESS OF BREATH OR PAIN. FOCUSED ASSESSMENTS HAVE BEEN DOCUMENTED. CALL LIGHT AND PERSONAL BELONGINGS ARE WITHIN REACH.
--- NOTE | 2025-01-29 15:47 | NUR ---
PATIENT WAS IN BED AND JUST WANTED AN APPLE JUICE. CALL LIGHT WITH IN REACH AND NOTHING ELSE NEEDED AT THIS TIME.
--- NOTE | 2025-01-29 16:12 | NUR ---
PATIENT IS LYING IN BED WITH HOB ELEVATED. NC AND VAPOTHERM IN PLACE. CPOX AT BEDSIDE. PATIENT IS WITH EYES OPEN AND RESPIRATIONS ARE EVEN AND UNLABORED. PATIENT IS WATCHING TV. CALL LIGHT AND PERSONAL BELONGINGS ARE WITHIN REACH.
--- NOTE | 2025-01-29 17:23 | NUR ---
PATIENT LYING IN BED WITH HOB ELEVATED. PATIENT IS WATCHING TV. 1800 VITAL SIGNS AND MEWS SCORE DOCUMENTED. PATIENT ON VAPOTHERM 20L/MIN @ 28% AND 3L NC. PATIENT DENIES FURTHER NEEDS AT THIS TIME. CALL LIGHT AND PERSONAL ITEMS ARE WITHIN REACH.
--- NOTE | 2025-01-29 18:29 | NUR ---
PATIENT IS LYING IN BED WITH HOB ELEVATED. SHE CALLED REQUESTING APPLE JUICE AND VANILLA ICE CREAM. NO OTHER NEEDS COMMUNICATED AT THIS TIME. CALL LIGHT, SNACKS, AND PERSONAL BELONGINGS ARE WITHIN REACH.
--- NOTE | 2025-01-29 19:00 | NUR ---
PATIENT LYING IN BED WITH HOB ELVATED.PUREWICK AND PERICARE PERFORMED. CALL LIGHT AND PERSONAL BELONGINGS WITHIN REACH. PATIENT DENIED FURTHER NEEDS AT THIS TIME.
--- NOTE | 2025-01-29 19:16 | NUR ---
RECEIVED REPORT. PT ALERT, RESTING IN BED WITH NASAL CANNULA IN MOUTH FOR EFFECTIVE OXYGENATION. NO NEEDS, CALL LIGHT IN REACH
--- NOTE | 2025-01-29 20:09 | NUR ---
EFREM REMAINS ON THE VAPOTHERM 20L FIO2 28% WITH A 3L NC PO. SHE IS ABLE TO USE THE CORNET LEVEL 5 W/O DIFFICULTY OR INCREASED S/S OF RESPIRATORY DISTRESS. EFREM IS AWAKE SITTING UP IN BED WATCHING TENNIS ON TV. HOB IS ELEVATED TO 43 DEGREES.
--- NOTE | 2025-01-29 20:39 | NUR ---
CHAIN TENDER OBTAINED VITALS AND I&O. PUREWCIK CANNISTER EMPTIED. PT STATES NO FURTHER NEEDS AT THIS TIME. CALL LIGHT WITHIN REACH.
--- NOTE | 2025-01-29 21:29 | NUR ---
ASSESSMENT. PT REPORTS HER BREATHING IS SIGNIFICANTLY IMPROVED FROM YESTERDAY. NO NEEDS AT THIS TIME, CALL LIGHT IN REACH
--- NOTE | 2025-01-29 23:56 | NUR ---
PT IN BED WITH EYES CLOSED, RISE AND FALL OF CHEST NOTED. CALL LIGHT IN REACH
[2025-01-30] VITALS (8 sets, daily range): BP systolic 96–157; BP diastolic 58–85
--- NOTE | 2025-01-30 02:33 | NUR ---
PT IN BED WITH EYES CLOSED, RISE AND FALL OF CHEST SEEN. CALL LIGHT IN REACH
--- NOTE | 2025-01-30 03:20 | NUR ---
EFREM IS ON VAPOTHERM 20L FIO2 28% WITH A 3L NC IN HER MOUTH. SHE PREFERS HER SPO2 BETWEEN 95% AND 97%.
--- NOTE | 2025-01-30 04:11 | NUR ---
PT RESTING IN BED, RISE AND FALL OF CHEST NOTED. CALL LIGHT IN REACH
[2025-01-30 05:07] LABS: BASOPHILS 0.2 % (0-2); HEMATOCRIT 34.3 % (35.0-50.0); HEMOGLOBIN 11.2 g/dL (12.0-18.0); LYMPHOCYTES 12.3 % (24-44); MCH 28.1 (27-36); MCHC 32.6 g/dl (30-36); MCV 86.3 fl (81-99); MONOCYTES 13.1 % (0-12); NEUTROPHILS 73.4 % (39-80); PLATELET COUNT 373 K/uL (140-440); RBC 3.98 M/ul (4.3-5.7); RDW 13.6 (10.5-15.0)
[2025-01-30 05:21] LABS: ALBUMIN 2.4 g/dL (3.4-5.0); ALBUMIN/GLOBULIN RATIO 0.59 (1.1-2.4); ANION GAP 3.7 (7-21); BILIRUBIN, TOTAL 0.3 mg/dL (0.2-1.0); BUN/CREATININE RATIO 16.94 (6.0-28.6); CALCIUM 9.4 mg/dL (8.5-10.1); CREATININE, SERUM 0.59 mg/dL (0.55-1.02); POTASSIUM 3.7 mmol/L (3.5-5.1); PROTEIN, TOTAL 6.5 g/dL (6.4-8.2)
--- NOTE | 2025-01-30 06:24 | NUR ---
PT RESTING WITH EYES CLOSED, SP02 92% ON 3LNC. CALL LIGHT IN REACH
--- NOTE | 2025-01-30 08:57 | NUR ---
PATIENT IS IN HER BED AT THIS TIME, CICI ASSISTED WITH SETTING UP HER BREAKFAST FOR HER SHE TOOK ONE BITE AND WAS HAVING A HARD TIME SWOLLOWING SO SHE REFUSED THE REST. CICI ALSO GOT HER FRESH COFFEE AND ICE WATER, CHARTED I&O'S AND VITALS. CICI ESTRADA ASSISTED ME IN CHANGING PATIENTS BREIF AND PUREWICK, PULLED EHR UP IN BED AND I FINISHED TIDYING UP. CALL LIGHT WITH IN REACH AND NOTHING ELSE NEEDED AT THIS TIME.
[2025-01-30] MEDS ORDERED: MAGNESIUM SULFATE 2 GM/50 ML BAG IV ONE (09:00)
--- NOTE | 2025-01-30 10:15 | NUR ---
PT NOT AVAILABLE FOR VISIT. PROVIDED PRAYER.
--- NOTE | 2025-01-30 10:25 | NUR ---
Patient appears anxious, she has notable air hunger. Patient is on 4L oxygen per nc, respirations 24/min, shallow breathing noted. RT at bedside. Patient denies pain at this time. IV mag infusing per order. Patient close to RN station, door blinds left open per pt request.
--- NOTE | 2025-01-30 10:30 | NUR ---
Into room, patient resting in bed is awake and watching tv. Bed rails up x3, bed alarm on, room appears clean and organized. Patient AAOx4, but appears anxious secondary to dyspnea. 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 Appears to be breathing even with shallow breaths, RR 25. VS stable. Auscultated lung sounds, noted diminished in bases js with rubbing L>R in upper lobes. Patient states " I am not having any pain or shortness of breathe" Patient reported pain 0/10 on pain scale, administered Morpine, see EMAR for air hunger per standing order. Patient refused to reposition at this time. Provided education and encouraged patient to shift weight in bed to prevent pressure wounds. Patient verbalized would shift after morphine reduced sx of air hunger. The charge nurse agreed to let her rest and try again. Patient verbalized no other needs at this time, dimmed lights, patient belongings and call light within reach.
--- NOTE | 2025-01-30 11:09 | NUR ---
Patient resting in bed, eyes closed, no acute distress. SP02 96% on 4L oxygen per nc.
--- NOTE | 2025-01-30 12:34 | NUR ---
Patient reporting nausea. Zofran 4MG iv admin at this time. Patient found with lunch tray in front of her, she reports she did not eat any of her food. Patient is on 3L oxygen per nc, sp02 90%. Patient denies further needs. HOB elevated, cool compress provided.
--- NOTE | 2025-01-30 14:13 | NUR ---
PATIENT IS IN BED AT THIS TIME, ASSISTANT DEAN OF STUDENTS CHECKED PATIENTS BREIF WHICH IS STILL DRY NO BM. GOT HER TO TAKE A FEW SIPS OF WATER, REFUSED LUNCH, SAID THE SMELL MADE HER SICK. ASSISTANT DEAN OF STUDENTS CHARTED VITALS AND I&O'S, CALL LIGHT WITH IN REACH AND NOTHING ELSE NEEDED AT THIS TIME.
--- NOTE | 2025-01-30 15:11 | NUR ---
SP02 87% on 3L oxygen per nc. Patient denies sob, oxygen increased to 4L per nc at this time, sp02 increased to 90%.
--- NOTE | 2025-01-30 15:34 | NUR ---
PATIENT DIDN'T EAT LUNCH BECAUSE WHEN THE LID WAS REMOVED THE SMELL MADE HER NAUSEOUS. SHE AGREED TO DRINK A VANILLA ENSURE PLUS HP THIS AFTERNOON. SHE LIKED THE TASTE AND DRANK 90% OF IT. WILL ADD IT TO BREAKFAST AND DINNER MEALS.
--- NOTE | 2025-01-30 15:46 | NUR ---
Patient resting in bed watching tv, no notable distress. Patient's oxygen is 100% on 4L per nc, decreased to 3L at this time.
--- NOTE | 2025-01-30 17:32 | NUR ---
KYAW IS IN BED AT THIS TIME, SPACE AND MISSILE OPERATIONS SPACELIFTSuma ESTEBAN VITALS AND I&O'S. CICI PHILLIPS AND I CHANGED PATIENTS PUREWICK, BREIF AND CHRISTIANO PAD. FLOATED PATIENT, CALL LIGHT WITH IN REACH AND NOTHING ELSE NEEDED AT THIS TIME.
--- NOTE | 2025-01-30 19:36 | NUR ---
RECEIVED REPORT. PT ALERT IN BED WITH NASAL CANNULA IN MOUTH IS HER USUAL. NO NEEDS PRESENTLY, CALL LIGHT IN REACH
--- NOTE | 2025-01-30 20:15 | NUR ---
OIL EXTRACTOR OBTAINED VITALS AND I&O. PT STATES NO NEEDS AT THIS TIME. CALL LIGHT WITHIN REACH.
--- NOTE | 2025-01-30 20:15 | NUR ---
ASSESSMENT. PT DENIES PAIN, REPORTS SHE IS BREATHING MUCH EASIER THAN PREVIOUSLY. DENIES MORPHINE FOR NOW. CALL LIGHT IN REACH
--- NOTE | 2025-01-30 20:30 | NUR ---
EFREM IS BACK TO BASELINE...3L NC IN HER MOUTH. SHE ABLE TO USE THE CORNET LEVEL 5 W/0 DIFFICULTY. BS ARE CLEAR AND EQUAL BILATERALLY, LLL SOUNDS CLEAR COMPARED TO THE PRIOR TWO NIGHTS.
--- NOTE | 2025-01-30 21:40 | NUR ---
PT RESTING IN BED WITH EYES CLOSED, SP02 IS 94%. CALL LIGHT IN REACH
[2025-01-31] VITALS (9 sets, daily range): BP systolic 100–151; BP diastolic 49–61
--- NOTE | 2025-01-31 00:04 | NUR ---
TURNED PT TO L SIDE, WITH PILLOW. PT ROUSABLE, EASILY BACK TO SLEEP. NO OTHER NEEDS, CALL LIGHT IN REACH
--- NOTE | 2025-01-31 01:52 | NUR ---
PT RESTING WITH EYES CLOSED, RISE AND FALL OF CHEEST NOTED. CALL LIGHT IN REACH
--- NOTE | 2025-01-31 03:21 | NUR ---
PT RESTING WITH EYES CLOSED, RISE AND FALL OF CHEST NOTED. CALL LGIHT IN REACH
--- NOTE | 2025-01-31 05:07 | NUR ---
TURNED PT TO L SIDE WITH PILLOWS. NO NEEDS PRESENTLY, SATTING WELL WITH 3LNC. CALL LGT IN REACH
[2025-01-31 05:29] LABS: BASOPHILS 0.2 % (0-2); EOSINOPHILS 0.4 % (0-6); HEMATOCRIT 34.2 % (35.0-50.0); HEMOGLOBIN 11.2 g/dL (12.0-18.0); LYMPHOCYTES 11.4 % (24-44); MCH 28.3 (27-36); MCHC 32.7 g/dl (30-36); MCV 86.5 fl (81-99); MONOCYTES 12.1 % (0-12); NEUTROPHILS 75.9 % (39-80); PLATELET COUNT 352 K/uL (140-440); RBC 3.96 M/ul (4.3-5.7); RDW 13.5 (10.5-15.0)
[2025-01-31 05:50] LABS: ALBUMIN 2.6 g/dL (3.4-5.0); ALBUMIN/GLOBULIN RATIO 0.7 (1.1-2.4); ANION GAP 1.4 (7-21); BILIRUBIN, TOTAL 0.3 mg/dL (0.2-1.0); BUN/CREATININE RATIO 33.33 (6.0-28.6); CALCIUM 9.8 mg/dL (8.5-10.1); CREATININE, SERUM 0.63 mg/dL (0.55-1.02); POTASSIUM 4.4 mmol/L (3.5-5.1); PROTEIN, TOTAL 6.3 g/dL (6.4-8.2)
--- NOTE | 2025-01-31 05:58 | NUR ---
MECHANICAL DRAFTER AND RN OBTAINED VITALS AND I&O. ICE WATER REFILLED. PT STATES NO FURTHER NEEDS AT THIS TIME. CALL LIGHT WITHIN REACH.
--- NOTE | 2025-01-31 07:35 | NUR ---
Patient sitting up in bed watching tv, alert and oriented x3, no acute distress. Patient is on 3L oxygen per nc, sp02 90% at this time. Patient denies sob at rest. Fresh water at bedside. No current needs, personal supplies and call light within reach.
--- NOTE | 2025-01-31 08:15 | NUR ---
RT IN THE ROOM WITH PATIENT.
[2025-01-31] MEDS ORDERED: POLYETHYLENE GLYCOL 3350 1 PACKET PO SCH (09:00)
--- NOTE | 2025-01-31 13:06 | NUR ---
Danita care and repositioning done at this time. Patient has notable air hunger, morphine 2mg iv admin at this time. New pure wick placed at this time. SP02 89% on 3L duing repositioning, increased oxygen to 4L briefly then back down to 3L, sp02 returned to 93%.
--- NOTE | 2025-01-31 18:40 | NUR ---
PATIENT'S PUREWICK WAS CHANGED AT 1800. YENI JOYNER INFORMED AND TURNCLOCK UPDATED. NO CARES WERE REQUESTED.
--- NOTE | 2025-01-31 19:05 | NUR ---
RECEIVED REPORT. PT ALERT IN BED, DECLINES OFFER FOR MORPHINE BUT STATES SHE MAY WANT IT PRIOR TO BED. NO OTHER NEEDS PRESENTLY, CALL DARWIN MENDEZ
--- NOTE | 2025-01-31 20:07 | NUR ---
EFREM REMAINS ON A 3L NC ORALLY. SHE IS AWAKE IN BED WATCHING BASEBALL. HOB IS ELEVATED TO 31 DEGREES. CORNET LEVEL 5 DONE W/O DIFFICULTY OR INCREASED S/S OF RESPIRATORY DISTRESS.
--- NOTE | 2025-01-31 21:05 | NUR ---
GIVEN MORPHINE 2MG IV PER PT REQUEST FOR AIR HUNGER. ASSESSMENT. PT DECLINES TURN, AGREES TO TURN IN 1 HOUR AFTER MORPHINE HAS TAKEN EFFECT. NO OTHER NEEDS, CALL LIGHT IN REACH
--- NOTE | 2025-01-31 23:03 | NUR ---
PT RESTING WITH EYES CLOSED, RISE AND FALL OF CHEST NOTED. CALL LIGHT IN REACH
[2025-02-01] VITALS (8 sets, daily range): BP systolic 99–151; BP diastolic 46–56
--- NOTE | 2025-02-01 01:13 | NUR ---
PT RESTING IN BED WITH EYES CLOSED, RISE AND FALL OF CHEST. CALL LIGHT IN [facility]
--- NOTE | 2025-02-01 03:19 | NUR ---
PT RESTING IN BED WITH EYES CLOSED, RISE AND FALL OF CHEST NOTED. CALL LIGHT IN REACH
[2025-02-01 05:14] LABS: BASOPHILS 0.2 % (0-2); EOSINOPHILS 0.8 % (0-6); HEMATOCRIT 32.8 % (35.0-50.0); HEMOGLOBIN 10.5 g/dL (12.0-18.0); MCHC 32.2 g/dl (30-36); MCV 86.9 fl (81-99); MONOCYTES 12.1 % (0-12); NEUTROPHILS 76.9 % (39-80); PLATELET COUNT 334 K/uL (140-440); RBC 3.77 M/ul (4.3-5.7); RDW 13.6 (10.5-15.0)
--- NOTE | 2025-02-01 05:17 | NUR ---
VITALS, TURNED ONTO R SIDE. PT BRIEF CLEAN AND DRY. CALL LIGHT IN REACH
[2025-02-01 05:30] LABS: ALBUMIN 2.4 g/dL (3.4-5.0); ALBUMIN/GLOBULIN RATIO 0.67 (1.1-2.4); ANION GAP -0.6 (7-21); BILIRUBIN, TOTAL 0.3 mg/dL (0.2-1.0); BUN/CREATININE RATIO 37.93 (6.0-28.6); CALCIUM 9.5 mg/dL (8.5-10.1); CREATININE, SERUM 0.58 mg/dL (0.55-1.02); POTASSIUM 4.4 mmol/L (3.5-5.1)
--- NOTE | 2025-02-01 06:12 | NUR ---
NOTIFIED THAT PT OUTPUT ~100ML ON SHIFT. PT WITH POOR PO INTAKE. ENCOURAGE FLUIDS AND PO INTAKE TODAY.
--- NOTE | 2025-02-01 06:15 | NUR ---
A&OX4. SLEPT SOUNDLY FOR MUCH OF SHIFT. ON CPOX, SATTING IN 90'S ON 3LNC. GIVEN MORPHINE ONCE FOR AIR HUNGER. VERY POOR PO INTAKE. PUREWICK IN PLACE. UOP ~100ML ON SHIFT, NOTIFIED. PASSING GAS, BUT LAST BM ON 01/27 5 DAYS AGO. PT DECLINES SEVERAL TURNS OVERNIGHT. PLAN FOR POSSIBLE D/C HOME TODAY
--- NOTE | 2025-02-01 07:19 | NUR ---
VERBAL REPORT RECEIVED FROM YENI MCCOY. PT RESTS IN BED AWAKE AND ALERT, [address] VIA NC, SPO2 100%. NO REQUESTS AT THIS TIME.
--- NOTE | 2025-02-01 07:45 | NUR ---
PATIENT IN BED DOING NEB TREATMENT AT THIS TIME. WHITE BOARD UPDATED. CALL LIGHT IN REACH. NO FURTHER NEEDS AT THIS TIME.
--- NOTE | 2025-02-01 10:20 | NUR ---
PATIENT BACK TO ROOM FRRM CT. IN TO DO VITALS AND I&O'S. NEW PURE WICK PLACED AT THIS TIME. CALL LIGHT IN REACH. NO FURTHER NEEDS AT THIS TIME.
--- NOTE | 2025-02-01 10:42 | NUR ---
DRESSING IN PLACE OVER RIGHT LOPEZ REMOVED. NOTED PARTIAL THICKNESS WOUND WITH 100% LOSS OF SKIN FLAP FROM SKIN TEAR. WOUND BASE IS PINK AND CLEAN. WOUND EDGES ARE INTACT. REY WOUND SKIN IS INTACT. NO DRAINAGE NOTED. WOUND CLEANSED WITH NS AND PATTED DRY. ADAPTIC NON-ADHERENT DRESSING APPLIED OVER WOUND BASE AND SECURED WITH BORDERED FOAM DRESSING. RECOMMEND TO CHANGE EVERY 5 DAYS. PT TOLERATED WELL.
--- NOTE | 2025-02-01 12:22 | NUR ---
PT SITS UP IN BED, EATS LUNCH, WATCHES TV, NO REQUESTS AT THIS TIME.
--- NOTE | 2025-02-01 14:01 | NUR ---
PATIENT IN BED WATCHING TV AT THIS TIME. VITALS AND I&O'S DONE AND CHARTED. CALL LIGHT IN REACH. NO FURTHER NEEDS AT THIS TIME. BED BATH OFFERED AND REFUSED AT THIS TIME.
--- NOTE | 2025-02-01 15:51 | NUR ---
PT REPORTS, "I FEEL LIKE CRAP." PT REPOSITIONED FOR COMFORT. DUONEB TREATMENT RECEIVED ORDERED. VSS.
--- NOTE | 2025-02-01 17:21 | NUR ---
PATIENT REFUSED DINNER BUT ASKED FOR ICE CREAM. SHE COMPLAINED OF DIFFICULTY BREATHING RN AWARE AND AT BEDSIDE. CALL LIGHT IN REACH.
--- NOTE | 2025-02-01 17:22 | NUR ---
PT REPORTS SOB, 24 RPM, SHALLOW, PT SPO2 90% ON 3 LPM, O2 INCREASED TO 5 LPM. PT NOTED TO BE MOUTH BREATHING WITH NC IN NARES. PT USUALLY USES NC IN MOUTH. PT MOVES NC TO MOUTH. LEFT LUNG SOUNDS CLEAR, COARSE. RIGHT LUNG SOUNDS ARE CLEAR, DIM. SPO2 INCREASES TO 95% ON 5 LPM. RESP DECREASE TO 12 RPM. PT IS CALM, WATCHES TV. PT REPORTS SHE FEELS BETTER BUT STILL, "SHAKY." O2 LEFT AT 5 LPM, PT SPO2 97%.
--- NOTE | 2025-02-01 18:15 | NUR ---
PATIENT SITTING UP IN BED AT THIS TIME. VITALS AND I&O'S DONE AND CHARTED. CALL LIGHT IN REACH. NO FURTHER NEEDS AT THIS TIME.
--- NOTE | 2025-02-01 19:36 | NUR ---
RECEIVED REPORT. PT SATTING AT 97% ON 5L, TITRATED TO 4L. PT REPORTS HER SHORTNESS OF BREATH IS IMPROVED, THOUGH NOT 100%. REQUESTS LIQUID OR CRUSHED TYLENOL.
--- NOTE | 2025-02-01 19:56 | NUR ---
GIVEN PRN TYLENOL CRUSHED WITH APPLESAUCE PER REQUEST. PT DENIES OTHER NEEDS FOR NOW, CALL LGT IN REACH
[2025-02-01 20:13] LABS: TSH, 3RD GENERATION 1.003 uIU/mL (0.358-3.740)
--- NOTE | 2025-02-01 21:27 | NUR ---
ADMINISTERED NEBULIZAER TREATMENT WITH PERMISSION OF RT. GIVEN TYLENOL CRUSHED IN APPLESAUCE. VITALS, CHANGED BRIEF, PUREWICK, AND LINENS. TURNED ONTO R SIDE WITH PILLOWS. REPLACED ICE WATER. NO OTHER NEEDS, CALL LIGHT IN REACH
--- NOTE | 2025-02-01 23:13 | NUR ---
PT RESTING IN BED WITH CLOSED EYES. SP02 95%. CALL LIGHT IN REACH
--- NOTE | 2025-02-02 01:37 | NUR ---
PT RESTING WITH EYES CLOSED, SPO2 93% ON 3LNC. CALL LIGHT IN REACH
--- NOTE | 2025-02-02 03:42 | NUR ---
PT RESTING WITH EYES CLOSED, RISE AND FALL OF CHEST NOTED. CALL LIGHT IN REACH
[2025-02-02 05:23] VITALS: BP 127/46
--- NOTE | 2025-02-02 05:23 | NUR ---
VITALS, I&OS. RN AND DROP WIRE ALINER CHANGED PUREWICK, BRIEF AND LINENS. PLACED PT ON WAFFLE MATTRESS D/T REDNESS OF COCCYX. APPLIED BARRIER CREAM. PT SATTING WELL ON 3LNC. PERSONAL POSSESSIONS IN REACH.
[2025-02-02 05:30] LABS: BASOPHILS 0.3 % (0-2); EOSINOPHILS 0.8 % (0-6); HEMATOCRIT 34.9 % (35.0-50.0); HEMOGLOBIN 11.4 g/dL (12.0-18.0); LYMPHOCYTES 11.2 % (24-44); MCH 28.4 (27-36); MCHC 32.6 g/dl (30-36); MCV 87.2 fl (81-99); MONOCYTES 10.7 % (0-12); PLATELET COUNT 331 K/uL (140-440); RDW 13.7 (10.5-15.0)
[2025-02-02 05:45] LABS: ALBUMIN 2.6 g/dL (3.4-5.0); ALBUMIN/GLOBULIN RATIO 0.72 (1.1-2.4); ANION GAP 1.5 (7-21); BILIRUBIN, TOTAL 0.2 mg/dL (0.2-1.0); BUN/CREATININE RATIO 30.35 (6.0-28.6); CALCIUM 9.8 mg/dL (8.5-10.1); CREATININE, SERUM 0.56 mg/dL (0.55-1.02); POTASSIUM 4.5 mmol/L (3.5-5.1); PROTEIN, TOTAL 6.2 g/dL (6.4-8.2)
--- NOTE | 2025-02-02 07:07 | NUR ---
VERBAL REPORT RECEIVED FROM YENI MCCOY. PT RESTS IN BED AWAKE AND ALERT, WATCHES TV, SPO2 91% ON 3 LPM. CALL LIGHT IN REACH. VISITOR X1 IN ROOM. NO REQUESTS AT THIS TIME.
[2025-02-02] MEDS ORDERED: acetaZOLAMIDE 250 MG TAB PO ONE (08:00)
--- NOTE | 2025-02-02 09:00 | NUR ---
INTO SEE PATIENT. PATIENT STILL PLANNING ON GOING HOME AT TIME OF DISCHARGE. PATIENT WILL HAVE A CAREGIVER PICK HER UP AT TIME OF DISCHARGE. NO FUTHER CM NEEDS AT THIS TIME.
[2025-02-02 10:31] VITALS: BP 115/44
--- NOTE | 2025-02-02 10:34 | NUR ---
PATIENT IS IN BED AT THIS TIME RESTING, VASCULAR NEUROLOGIST ASSISTED WITH EATTING BREAKFAST THIS MORNING, CHARTED VITALS AND I&O'S, GOT FRESH ICE WATER ADN A NEW TOP SHEET. CALL LIGHT WITH IN REACH AND NOTHING ELSE NEEDED AT THIS TIME.
[2025-02-02 13:33] VITALS: BP 110/55
--- NOTE | 2025-02-02 13:35 | NUR ---
PT RESTS IN BED AWAKE AND ALERT, BREATHING TREATMENT INPROGRESS. RT IN ROOM.
--- NOTE | 2025-02-02 13:35 | NUR ---
PATIENT IS IN BED AT THIS TIME, LABORATORY COORDINATOR CHARTED VITALS AND I&O'S, EMPTIED PUREWIK CANISTER, GOT FRESH ICE WATER. CALL LIGHT WIHT IN REACH AND NOTHING ELSE NEEDED AT THIS TIME.
--- NOTE | 2025-02-02 14:03 | NUR ---
PT LE[facility]ES [facility].
--- NOTE | 2025-02-02 14:12 | NUR ---
PT NOT AVAILABLE FOR VISIT. PROVIDED PRAYER.
[2025-02-02 18:08] VITALS: BP 129/57
--- NOTE | 2025-02-02 18:11 | NUR ---
PATIENT IS IN BED AT THIS TIME, CICI ESCOTO AND POLI ASSISTED IN CHANGING THE PUREWICK, DRAW SHEET, CHRISTIANO AND NEW BREIF. PULLED PATIENT UP IN BED, GOT FRESH ICE WATER, CALL LIGHT WITH IN REACH AND NOTHING ELSE NEEDED AT THIS TIME.
--- NOTE | 2025-02-02 19:11 | NUR ---
RECEIVED REPORT. PT ALERT, RESTING IN BED WITH NASAL CANNULA IN MOUTH IS HER USUAL. NO NEEDS PRESENTLY, CALL LIGHT IN REACH.
[2025-02-02 20:57] VITALS: BP 132/51
[2025-02-02 20:58] VITALS: BP 132/51
--- NOTE | 2025-02-02 21:14 | NUR ---
ASSESSMENT. PT REPORTS HER WORK OF BREATHING IS IMPROVED FROM YESTERDAY AND HER APPETITE IS RETURNING. LUNG SOUNDS WITH SOME COARSENESS AND WHEEZING, THOUGH IMPROVED. NO NEEDS AT THIS TIME, [facility]
--- NOTE | 2025-02-02 23:11 | NUR ---
PT RESTING IN BED WITH EYES CLOSED, RISE AND FALL OF CHEST OBSERVED. CALL LIGHT IN REACH
--- NOTE | 2025-02-03 01:23 | NUR ---
PT RESTING IN BED, TURNED ON R SIDE WITH PILLOWS. NO NEEDS PRESENTLY, CALL LIGHT IN REACH
--- NOTE | 2025-02-03 03:14 | NUR ---
pt in bed with eyes closed, rise and fall of chest seen. call light in reach
[2025-02-03 05:35] VITALS: BP 160/54
[2025-02-03 05:38] VITALS: BP 139/61
--- NOTE | 2025-02-03 05:52 | NUR ---
VITALS. RN AND TRADER FIXED INCOME CHANGED FINA YOUNG. PT DECLINES TURN, ASSISTED POSITIONING WITH PILLOWS. NO OTHER NEEDS, CALL LIGHT IN REACH
--- NOTE | 2025-02-03 06:08 | NUR ---
PT SLEPT SOUNDLY FOR MUCH OF SHIFT. DECLINED 2 TURNS OVERNIGHT FOR SLEEP. RESPIATORY STATUS GREATLY IMPROVED FROM PREVIOUS SHIFTS. PLAN FOR POSSIBLE DC HOME TODAY N: A&OX4 CV: AUDIBLE MURMUR R: 3LNC. DECLINES SIGNIFICANT SOB ON SHIFT. GI: MINCED AND MOIST DIET. : PUREWICK CHANGED AT 0550. ADEQUATE OUTPUT OVERNIGHT MS: BEDBOUND AT BASELINE. Q2 TURNS OVERNIGHT SKIN: L LEG SKIN TEAR WITH FOAM. COCCYX RED, APPLIED BARRIER CREAM ACCESS: L AC SALINE LOCKED
[2025-02-03 06:28] LABS: ANION GAP 5.1 (7-21); CALCIUM 9.9 mg/dL (8.5-10.1); CREATININE, SERUM 0.5 mg/dL (0.55-1.02); POTASSIUM 4.1 mmol/L (3.5-5.1)
[2025-02-03 06:49] VITALS: BP 139/61
--- NOTE | 2025-02-03 07:20 | NUR ---
VERBAL REPORT RECEIVED FROM YENI MCCOY. PT RESTS IN BED WITH EYES CLOSED, RESP EVEN AND UNLABORED. SPO2 98% ON 3 LPM VIA NC.
--- NOTE | 2025-02-03 07:59 | NUR ---
PATIENT IN BED AT THIS TIME. LAY UPS ASSEMBLER CHARTED HOURLY ROUNDS. CALL LIGHT WITHIN REACH, NO FURTHER NEEDS.
--- NOTE | 2025-02-03 09:15 | NUR ---
Today I find Beulah setting up high semi-lewis's in her bed and she appears to be watching a game show on t.v. Kristine has eaten approximately 80% of her breakfast, her tray is removed by this RN, and encouragement is given to finish her ensure. Today I was able to discuss the IMM letter and anticipated discharge for Beulah. Beulah verbalizes that she is "ready to go home" and her questions are answered regarding the IMM letter and the reason for the letter. The four hour wait rule is also explained to Beulah, Beulah shares that she wants to waive the four hour wait time in the event that the doctor can discharge her to home earlier in the day. Letter is signed, and a signed copy of the letter is provided to Beulah. She denies further questions or needs at this time.
[2025-02-03 09:21] VITALS: BP 116/60
--- NOTE | 2025-02-03 09:24 | NUR ---
PATIENT SITTING UP IN BED WATCHING TV AT THIS TIME. VITALS AND I&O'S DONE AND CHARTED. CALL LIGHT IN REACH. NO FRUTHER NEEDS AT THIS TIME.
--- NOTE | 2025-02-03 09:54 | NUR ---
DR. SCANLON IN TO SPEAK WITH PT ABOUT POC AND DISCHARGE.
--- NOTE | 2025-02-03 10:10 | NUR ---
Spoke with Beulah. She plans on dc to home today. She will call one of her CGs to drive her. Her LANA will be at the home to assist her into the home and into bed. Discussed palliative care vs hospice. Pt at this time would like to cont. to return to the hospital if needed. She states Dr. Maria discussed palliative care with her. She denies other needs. Home today.
[2025-02-03] MEDS ORDERED: acetaZOLAMIDE 250 MG TAB PO ONE (10:15)
--- NOTE | 2025-02-03 11:42 | NUR ---
PT NOT AVAILABLE FOR VISIT. PROVIDED PRAYER.
--- NOTE | 2025-02-03 12:11 | NUR ---
DISCUSSED DISCHARGE INSTRUCTIONS WITH PT, PT VERBALIZES UNDERSTANDING. IV REMOVED, TIP INTACT, GAUZE AND COBAN DRESSING APPLIED TO SITE, PT TOLERATED WELL. VSS. PT TRANSFERRED TO WHEELCHAIR, PT ESCORTED TO PRIVATE CAR DRIVEN BY IRON PLASTIC BULLET MAKER. PT TRANSFERRED TO CAR.
== END 2025-02-03 11:59 | disposition home or self-care (01) | DRG 193 ==
LOC: ED 10:13 → MS 16:08
PROVIDERS: Emergency Medicine; Student in an Organized Health Care Education/Training Program; ADMIT Family Medicine; ATTEND Family Medicine
DX: J15.9 Unspecified bacterial pneumonia (principal); E43 Unspecified severe protein-calorie malnutrition; J96.21 Acute and chronic respiratory failure with hypoxia; J96.22 Acute and chronic respiratory failure with hypercapnia; J44.1 Chronic obstructive pulmonary disease with (acute) exacerbation; R64 Cachexia; Z66 Do not resuscitate; J44.0 Chronic obstructive pulmonary disease with (acute) lower respiratory infection; Z68.1 Body mass index [BMI] 19.9 or less, adult; E03.9 Hypothyroidism, unspecified; E83.42 Hypomagnesemia; D64.9 Anemia, unspecified; Z88.0 Allergy status to penicillin; Z88.6 Allergy status to analgesic agent; Z88.8 Allergy status to other drugs, medicaments and biological substances; Z79.890 Hormone replacement therapy; Z99.81 Dependence on supplemental oxygen; Z87.891 Personal history of nicotine dependence; Z90.49 Acquired absence of other specified parts of digestive tract; Z98.890 Other specified postprocedural states; Z90.710 Acquired absence of both cervix and uterus; Z79.899 Other long term (current) drug therapy; Z79.51 Long term (current) use of inhaled steroids
CPT/HCPCS: 36415; 70491; 71045; 71260; 74230; 80048; 80053; 82803; 83735; 83880; 84100; 84439; 84443; 84484; 85025; 92526; 92610; 92611; 93005; 93010; 94640; 94644; 94645; 94667; 94668; 94762; 94799; 99285-25; A9270; J0456; J1650; J2270; J2405; J2919; J3475; J7030; J7040; J7060; J7512; Q0177; Q9967

== ENCOUNTER 2025-03-13 14:06 | Emergency (ER) | payer MEDICARE, OTHER ==
[~2025-03-13] VITALS: Ht 162.6 cm; Wt 42.5 kg
[~2025-03-13 14:06] MED LIST changes: +AMOX TR-K CLV1 EAC1 PO; +ZITHROMAX250 MG PO
--- OUTSIDE RECORDS SUMMARY | 2025-03-13 14:11 | XMS ---
PreManage Notification: EFREM MCCLELLAN Security Head Teller Events No recent Security Events currently on file CRITERIA MET - [facility] - 2 Visits in 30 Days CARE PROVIDERS CURTIS CARLOS Physician Retoucher 11/05/2019-Current PHONE: Unknown KAYLIE SCHAEFER Rolled Gold Plater: Foot \T\ Ankle Surgery Current PHONE: [phone] TAISHA SALAS Rolled Gold Plater Bart Angel PHONE: [phone] KEERTHI CALLEJAS Internal Medicine Current PHONE: Unknown KALYN PARMAR Nurse Practitioner: Family Current PHONE: [phone] PARAG MAYORGA Nurse Practitioner: Family Current PHONE: [phone] NAHOMY GILL Internal Medicine Current PHONE: [phone] CATHY HUIZAR Internal Medicine Current PHONE: [phone] ANDRY VAZQUEZ I. Physician Retoucher Current PHONE: Unknown CRISSY URBAN Nurse Practitioner Current PHONE: Unknown LORETA LEO Nurse Practitioner Current PHONE: [phone] DAWIT PEÑALOZA [facility] Current PHONE: Unknown MOISES VALENTIN Nurse Practitioner: Family Current PHONE: Unknown LEYLA JOE Physician Retoucher Current PHONE: Unknown Susu has no Care Guidelines for this patient. Ashish VISIT COUNT (12 MO.) 3 JUSTYNA Corea TOTAL 3 NOTE: Visits indicate total known visits. ED/UCC VISIT TRACKING (12 MO.) 03/13/2025 14:06 JUSTYNA Sharif [place] TYPE: Emergency COMPLAINT: - WEAKNESS 02/24/2025 13:35 JUSTYNA Sharif [place] TYPE: Emergency COMPLAINT: - RIB PAIN DIAGNOSES: - Allergy status to analgesic agent - Allergy status to other antibiotic agents - Allergy status to penicillin - Chest pain, unspecified - Chronic obstructive pulmonary disease, unspecified - USP (current) use of systemic steroids - Other group home (current) drug therapy - Other nonmedicinal substance allergy status - Personal history of nicotine dependence - Pneumonia, unspecified organism 01/27/2025 10:13 JUSTYNA [facility]if [place] TYPE: Emergency COMPLAINT: - SHORTNESS OF BREATH INPATIENT VISIT TRACKING (12 MO.) 01/27/2025 16:08 JUSTYNA Sharif [place] TYPE: Medical Surgical COMPLAINT: - COPD EXACERBATION DIAGNOSES: - Acquired absence of both cervix and uterus - Acquired absence of both cervix and uterus - Acquired absence of other specified parts of digestive tract - Acquired absence of other specified parts of digestive tract - Acute and chronic respiratory failure with hypercapnia - Acute and chronic respiratory failure with hypercapnia - Acute and chronic respiratory failure with hypoxia - Acute and chronic respiratory failure with hypoxia - Allergy status to analgesic agent - Allergy status to analgesic agent - Allergy status to other drugs, medicaments and biological substances - Allergy status to other drugs, medicaments and biological substances - Allergy status to penicillin - Allergy status to penicillin - Anemia, unspecified - Anemia, unspecified - Body mass index [BMI] 19.9 or less, adult - Body mass index [BMI] 19.9 or less, adult - Cachexia - Cachexia - Chronic obstructive pulmonary disease with (acute) exacerbation - Chronic obstructive pulmonary disease with (acute) exacerbation - Chronic obstructive pulmonary disease with (acute) lower respiratory infection - Chronic obstructive pulmonary disease with (acute) lower respiratory infection - Dependence on supplemental oxygen - Dependence on supplemental oxygen - Do not resuscitate - Do not resuscitate - Hormone replacement therapy - Hormone replacement therapy - Hypomagnesemia - Hypomagnesemia - Hypothyroidism, unspecified - Hypothyroidism, unspecified - medical terminologist (current) use of inhaled steroids - medical terminologist (current) use of inhaled steroids - Other group home (current) drug therapy - Other group home (current) drug therapy - Other specified postprocedural states - Other specified postprocedural states - Personal history of nicotine dependence - Personal history of nicotine dependence - Pneumonia, unspecified organism - Shortness of breath - Unspecified bacterial pneumonia - Unspecified bacterial pneumonia - Unspecified severe protein-calorie malnutrition - Unspecified severe protein-calorie malnutrition [email or web address]
[2025-03-13] MEDS ORDERED: SODIUM CHLORIDE 0.9% 500 ML IV ONE (14:45)
[2025-03-13 15:07] LABS: BASOPHILS 0.6 % (0.1-1.2); EOSINOPHILS 1.6 % (0.7-5.8); LYMPHOCYTES 10.8 % (19.3-51.7); MCH 27.8 PG (25.6-32.2); MCHC 29.7 g/dL (32.2-35.5); MCV 93.7 fL (79.4-94.8); MONOCYTES 10.9 % (4.7-12.5); NEUTROPHILS 75.8 % (34.0-71.1); PLATELET COUNT 391 K/uL (182-369); RBC 3.95 M/uL (3.93-5.22)
[2025-03-13 15:20] LABS: ALBUMIN 3.3 g/dL (3.4-5.0); ALBUMIN/GLOBULIN RATIO 0.79 (1.1-2.4); ANION GAP 6.3 (7-21); BILIRUBIN, TOTAL 0.4 mg/dL (0.2-1.0); BUN/CREATININE RATIO 34.69 (6.0-28.6); CALCIUM 10.4 mg/dL (8.5-10.1); CREATININE, SERUM 0.49 mg/dL (0.55-1.02); POTASSIUM 4.3 mmol/L (3.5-5.1); PROTEIN, TOTAL 7.5 g/dL (6.4-8.2)
[2025-03-13 15:40] LABS: BILIRUBIN, URINE NEGATIVE (negative); BLOOD/HGB, URINE LARGE (Negative); KETONE, URINE NEGATIVE (Negative); NITRITE, URINE NEGATIVE (negative)
[2025-03-13 15:41] LABS: BACTERIA, URINE 1+ /hpf (negative); COLLECTION TYPE, URINE CLEAN CATCH; CRYSTALS, URINE NONE SEEN (0-1+); EPITHELIAL CELLS, URINE SQUAMOUS 4+ /lpf (0-1+); LEUK ESTERASE, URINE POSITVE (negative); WHITE BLOOD CELLS, URINE >50 /HPF (0-5)
[2025-03-13 15:42] LABS: CASTS, URINE NONE SEEN \\lpf; REFLEX CULTURE, URINE No (No)
[2025-03-13] MEDS ORDERED: LEVOFLOXACIN750 MG PO (16:19)
[2025-03-13] MEDS ORDERED: CEFTRIAXONE SODIUM 1 GM in SODIUM CHLORIDE 0.9% 100 ML IV ONE (16:30)
[2025-03-13 18:19] VITALS: BP 137/60
== END 2025-03-13 17:43 | disposition home or self-care (01) ==
LOC: ED 14:06
PROVIDERS: Emergency Medicine
DX: N39.0 Urinary tract infection, site not specified (principal); J44.9 Chronic obstructive pulmonary disease, unspecified; Z87.891 Personal history of nicotine dependence; Z88.0 Allergy status to penicillin; Z79.899 Other long term (current) drug therapy; Z79.2 Long term (current) use of antibiotics
CPT/HCPCS: 36415; 71045; 80053; 81001; 85025; 96365; 99284-25; J0696; J7040

== ENCOUNTER 2025-07-27 14:18 | Emergency (ER) | payer MEDICARE, OTHER ==
[~2025-07-27] VITALS: Ht 162.6 cm; Wt 43.1 kg
[~2025-07-27 14:18] MED LIST changes: +LEVOFLOXACIN750 MG PO
[2025-07-27] MEDS ORDERED: ALBUTEROL/IPRATROPIUM 3 ML NEB INH PRN (14:30)
[2025-07-27 14:58] LABS: BASOPHILS 0.3 % (0.1-1.2); EOSINOPHILS 1.2 % (0.7-5.8); LYMPHOCYTES 11.6 % (19.3-51.7); MCH 28.3 PG (25.6-32.2); MCHC 28.8 g/dL (32.2-35.5); MCV 98.2 fL (79.4-94.8); MONOCYTES 9.4 % (4.7-12.5); NEUTROPHILS 77.3 % (34.0-71.1); RBC 3.96 M/uL (3.93-5.22)
[2025-07-27 15:17] LABS: ALT (SGPT) 17.0 U/L (14-59); AST (SGOT) 25.0 U/L (15-37); GLOMERULAR FILTRATION RATE,EST 90.0 mL/min (>60); PROTEIN, TOTAL 8.2 g/dL (6.4-8.2); UREA NITROGEN 24.0 mg/dL (7-18)
[2025-07-27 15:58] LABS: BLOOD/HGB, URINE TRACE-I (Negative); KETONE, URINE NEGATIVE (Negative); LEUK ESTERASE, URINE LARGE (negative); NITRITE, URINE NEGATIVE (negative)
[2025-07-27 16:05] LABS: BACTERIA, URINE 4+ /hpf (negative); CASTS, URINE NONE SEEN \\lpf; CRYSTALS, URINE NONE SEEN (0-1+); EPITHELIAL CELLS, URINE 0 /lpf (0-1+); REFLEX CULTURE, URINE Yes (No)
[2025-07-27] MEDS ORDERED: ALBUTEROL/IPRATROPIUM 3 ML NEB INH ONE (17:45)
[2025-07-27 18:20] VITALS: BP 173/66
--- NOTE | 2025-07-28 21:41 | EKG ---
[facility] [address] [facility] [place] [address] Signed Suspect arm lead reversal, interpretation assumes no reversal Normal sinus rhythm Right atrial enlargement Rightward axis Pulmonary disease pattern Cannot rule out Inferior infarct , age undetermined Abnormal ECG When compared with ECG of 27-JAN-2025 10:25, No significant change was found Confirmed by Karol Bazan MD () on 07/28/2025 9:41:06 PM Electronically Signed By: KAROL BAZAN MD 07/28/252140 PATIENT NAME: EFREM MCCLELLAN LAI Electrocardiogram DATE OF : 39 PHYSICIAN: KAROL BAZAN MD REPORT #: [id number] REPORT IS CONFIDENTIAL AND NOT TO BE RELEASED WITHOUT AUTHORIZATION
== END 2025-07-27 18:20 | disposition home or self-care (01) ==
LOC: ED 14:18
PROVIDERS: Emergency Medicine
DX: N39.0 Urinary tract infection, site not specified (principal); J44.1 Chronic obstructive pulmonary disease with (acute) exacerbation; Z79.890 Hormone replacement therapy; Z79.899 Other long term (current) drug therapy; Z99.81 Dependence on supplemental oxygen; Z74.01 Bed confinement status; Z87.891 Personal history of nicotine dependence; Z88.0 Allergy status to penicillin; Z88.5 Allergy status to narcotic agent; Z91.048 Other nonmedicinal substance allergy status
CPT/HCPCS: 36415; 51701; 71045; 80053; 81001; 83735; 84484; 85025; 87088; 94640; 96365; 96375; 99285-25; J0696; J2919

== ENCOUNTER 2025-08-11 11:07 | Emergency (ER) | payer MEDICARE, OTHER ==
[~2025-08-11] VITALS: Ht 162.6 cm; Wt 40.5 kg
--- OUTSIDE RECORDS SUMMARY | 2025-08-11 11:12 | XMS ---
PreManage Notification: EFREM MCCLELLAN Security Television Operator Events No recent Security Events currently on file CRITERIA MET - [facility] - 2 Visits in 30 Days CARE PROVIDERS CURTIS CARLOS Physician Low Vision Therapist 11/05/2019-Current PHONE: Unknown KAYLIE SCHAEFER Wrap Yarn Sorter: Foot \T\ Ankle Surgery Current PHONE: [phone] TAISHA SALAS Wrap Yarn Sorter Bart Angel PHONE: [phone] KEERTHI CALLEJAS Internal Medicine Current PHONE: Unknown KALYN PARMAR Nurse Practitioner: Family Current PHONE: [phone] PARAG MAYORGA Nurse Practitioner: Family Current PHONE: [phone] NAHOMY GILL Internal Medicine Current PHONE: [phone] CATHY HUIZAR Internal Medicine Current PHONE: [phone] ANDRY VAZQUEZ I. Physician Low Vision Therapist Current PHONE: Unknown CRISSY URBAN Nurse Practitioner Current PHONE: Unknown LORETA LEO Nurse Practitioner Current PHONE: [phone] DAWIT PEÑALOZA [facility] Current PHONE: Unknown MOISES VALENTIN Nurse Practitioner: Family Current PHONE: Unknown LEYLA JOE Physician Low Vision Therapist Current PHONE: Unknown Susu has no Care Guidelines for this patient. Ashish VISIT COUNT (12 MO.) 5 JUSTYNA Corea TOTAL 5 NOTE: Visits indicate total known visits. ED/UCC VISIT TRACKING (12 MO.) 08/11/2025 11:08 JUSTYNA Sharif [place] TYPE: Emergency COMPLAINT: - WOUND CHECK 07/27/2025 14:18 JUSTYNA Sharif [place] TYPE: Emergency COMPLAINT: - SWALLOWING PROBLEM DIAGNOSES: - Allergy status to narcotic agent - Allergy status to penicillin - Bed confinement status - Chronic obstructive pulmonary disease with (acute) exacerbation - Dependence on supplemental oxygen - Dysphagia, unspecified - Hormone replacement therapy - Other termite helper (current) drug therapy - Other nonmedicinal substance allergy status - Personal history of nicotine dependence - Shortness of breath - Urinary tract infection, site not specified 03/13/2025 14:06 JUSTYNA Sharif [place] TYPE: Emergency COMPLAINT: - WEAKNESS DIAGNOSES: - Allergy status to penicillin - Chronic obstructive pulmonary disease, unspecified - terminologist (current) use of antibiotics - Other termite helper (current) drug therapy - Personal history of nicotine dependence - Urinary tract infection, site not specified - Weakness 02/24/2025 13:35 JUSTYNA Sharif [place] TYPE: Emergency COMPLAINT: - RIB PAIN DIAGNOSES: - Allergy status to analgesic agent - Allergy status to other antibiotic agents - Allergy status to penicillin - Chest pain, unspecified - Chronic obstructive pulmonary disease, unspecified - senior living (current) use of systemic steroids - Other termite helper (current) drug therapy - Other nonmedicinal substance [...] - Hypothyroidism, unspecified - Hypothyroidism, unspecified - terminologist (current) use of inhaled steroids - terminologist (current) use of inhaled steroids - Other termite helper (current) drug therapy - Other termite helper (current) drug therapy - Other specified postprocedural states - Other specified postprocedural states - Personal history of nicotine dependence - Personal history of nicotine dependence - Pneumonia, unspecified organism - Shortness of breath - Unspecified bacterial pneumonia - Unspecified bacterial pneumonia - Unspecified severe protein-calorie malnutrition - Unspecified severe protein-calorie malnutrition [email or web address]
--- NOTE | 2025-08-11 13:27 | NUR ---
VINCE 1310: THIS RN IS SEEING PT FOR A WOUND CONSULT OF THE LEFT LATERAL ANKLE. PT REPORTS SHE HAS HAD IT FOR A QUITE A WHILE, SHE DOESN'T KNOW HOW LONG. SHE ALSO DOESN'T KNOW HOW THE WOUND CAME TO BE. AT THIS TIME ALL SHE IS DOING AT HOME IS KEEPING THE AREA CLEAN WITH BED BATH CLOTHS. UPON INITIAL VISUALIZATION OF THE AREA, THE "YELLOW SCAB" IS VERY CHARACTERISITC OF DRY/CRUSTED EXUDATE. USING A WARM, WET WASH CLOTH THE AREA IS CLEANSED AND THE EXUDATE IS GENTLY DEBRIDED OFF THE WOUND BED. A BEAUTIFUL PINK/RED BEEFY GRANULATED WOUND BED IS REVEALED. THE WOUND MEASURES 3.7CM X 1.5CM X 0.1CM. BACITRACIN IS APPLIED TO THE WOUND BED, THEN COVERED WITH AN ADHESIVE FOAM DRESSING. THE PT IS EDUCATED THAT SHE NEEDS TO CONTINUE TO KEEP THE AREA CLEAN, BUT IS ENCOURAGED TO ALSO KEEP IT COVERED WITH A DRESSING OF SOME SORT TO PREVENT DRAINAGE BUILD UP AND TO PROMOTE HEALING. THE ABOVE INFORMATION IS RELAYED TO THE PRIMARY NURSE. VINCE 1325: WOUND CONSULT IS COMPLETE.
[2025-08-11 13:35] VITALS: BP 134/69
== END 2025-08-11 14:36 | disposition home or self-care (01) ==
LOC: ED 11:07
DX: L57.0 Actinic keratosis (principal); J44.9 Chronic obstructive pulmonary disease, unspecified; Z88.0 Allergy status to penicillin; Z88.8 Allergy status to other drugs, medicaments and biological substances; Z79.899 Other long term (current) drug therapy
CPT/HCPCS: 99283

== ENCOUNTER 2025-08-17 12:17 | Emergency (ER) | payer MEDICARE, OTHER ==
[~2025-08-17] VITALS: Ht 162.6 cm; Wt 41.0 kg
--- OUTSIDE RECORDS SUMMARY | ~2025-08-17 | XMS | Continuity of Care Document ---
Demographics + + + | Address | [address] | | | [place] [address] | + + + | Preferred Language | Unknown | + + + | Marital Status | | + + + | Christian Affiliation | Unknown | + + + | Race | White | + + + | Ethnic Group | Not or | + + + Author + + + | Author | [facility] | + + + | Organization | [facility] | + + + | Address | [address] | | | [place] [address] | + + + | Phone | | + + + Care Team Providers + + + + | Care Wire Lather Name | Role | Phone | + + + + Unavailable | Unavailable | + + + + Unavailable | Unavailable | + + + + Allergies and Intolerances + + + + + + | date | description | facility | reaction | severity | + + + + + + | 2025-07-27 | Diclofenac | [facility] | (no reaction) | (no severity) | | 00:00 | | [facility] | | | + + + + + + | 2025-07-27 | Diclofenac | [facility] - | (no reaction) | (no severity) | | 00:00 | | [facility] | | | + + + + + + | 2025-07-27 | Diclofenac | [facility] - | (no reaction) | (no severity) | | 00:00 | | [facility] | | | + + + + + + | 2025-07-27 | Penicillin | [facility] - | Shortness of | Severe | | 00:00 | | [facility] Hospital | | | + + + + + + | 2025-07-27 | Penicillin | [facility] - | Shortness of | Severe | | 00:00 | | [facility] Hospital | | | + + + + + + | 2025-07-27 | UNK | [facility] - | (no reaction) | Moderate | | 00:00 | | [facility] | | | + + + + + + | 2025-07-27 | Penicillin | [facility] - | Shortness of | Severe | | 00:00 | | [facility] | | | + + + + + + | 2025-07-27 | UNK | [facility] - | (no reaction) | Mild | | 00:00 | | [facility] | | | + + + + + + Encounters No information. Functional Status No information. Immunizations + + + + | date | description | facility | + + + + | (no date) | Influenza vaccine, | [facility] | | | quadrivalent, adjuvanted | [facility] | + + + + Medications + + + + | date | description | facility | + + + + | (no date) | LACTOBACILLUS ACIDOPHILUS | [facility] | | | | [facility] | + + + + | (no date) | IPRATROPIUM/ALBUTEROL | [facility] | | | SULFATE | [facility] | + + + + | (no date) | FLUTICASONE PROPIONATE | [facility] | | | | [facility] | + + + + | (no date) | Cholecalciferol (Vitamin | [facility] | | | D3) | [facility] | + + + + | (no date) | Acetaminophen | [facility] | | | | [facility] | + + + + | (no date) | Aspirin | [facility] | | | | [facility] | + + + + | (no date) | FUROSEMIDE | [facility] | | | | [facility] | + + + + | 2025-07-27 00:00 | LEVOFLOXACIN | [facility] | | | | [facility] | + + + + | (no date) | BUDESONIDE | [facility] | | | | [facility] | + + + + | (no date) | ALBUTEROL SULFATE | [facility] | | | | [facility] | + + + + | (no date) | POTASSIUM CHLORIDE | [facility] | | | | [facility] | + + + + | (no ) | ALBUTEROL SULFATE | [facility] | | | | [facility] | + + + + | (no date) | Levothyroxine Sodium | [facility] | | | | [facility] | + + + + | (no ) | HYDROXYZINE HCL | [facility] | | | | [facility] | + + + + Problems + + + + | date | description | facility | + + + + | 2025-08-11 00:00 | Multiple actinic keratoses | [facility] | | | | [facility] | + + + + Procedures No information. Results/Labs +--------+--------+ +---------+--------+---------+ | test | date | facility | value | unit | notes | +--------+--------+ +---------+--------+---------+ + + | Result panel 1 | + + + + + +--------+ + + | WBC # Bld | 2025-07-27 | | 8.85 | (missing) | (missing) | | Auto | 14:54:07 | [facility] | | | | + + + +--------+ + + + + | Result panel 2 | + + + + + +--------+ + + | Lymphocytes | 2025-07-27 | | 11.6 | (missing) | (missing) | | NFr Bld | 14:54:07 | [facility] | | | | | Auto | [facility] | | | | + + + +--------+ + + + + | Result panel 3 | + + + + + +-------+ + + | Monocytes | 2025-07-27 | | 9.4 | (missing) | (missing) | | NFr Bld Auto | 14:54:07 | [facility] | | | | | [facility] | [facility] | | | | + + + +-------+ + + + + | Result panel 4 | + + + + + +-------+ + + | Eosinophil | 2025-07-27 | | 1.2 | (missing) | (missing) | | NFr Bld Auto | 14:54:07 | [facility] | | | | + + + +-------+ + + + + | Result panel 5 | + + + + + +-------+ + + | Basophils | 2025-07-27 | | 0.3 | (missing) | (missing) | | NFr Bld Auto | 14:54:07 | [facility] | | | | + + + +-------+ + + + + | Result panel 6 | + + + + + +--------+ + + | RBC # Bld | 2025-07-27 | | 3.96 | (missing) | (missing) | | Auto | 14:54:07 | [facility] | | | | + + + +--------+ + + + + | Result panel 7 | + + + + + +--------+ + + | Hgb | 2025-07-27 | | 11.2 | (missing) | (missing) | | [facility] | 14:54:07 | [facility] | | | | + + + +--------+ + + + + | Result panel 8 | + + + + + +-------+---------+ + | Glucose | 2025-07-27 | | 106 | mg/dL | (missing) | | SerPl-karen | 14:54:07 | [facility] | | | | + + + +-------+---------+ + + + | Result panel 9 | + + + + + +------+---------+ + | BUN | 2025-07-27 | | 24 | mg/dL | (missing) | | [facility] | 14:54:07 | [facility] | | | | + + + +------+---------+ + + + | Result panel 10 | + + + + + +--------+---------+ + | Creat | 2025-07-27 | | 0.51 | mg/dL | (missing) | | SerPl-mCnc | 14:54:07 | [facility] | | | | | | [facility] - [facility] | | | | + + + +--------+---------+ + + + | Result panel 11 | + + + + + +------+ + + | eGFRcr | 2025-07-27 | | 90 | (missing) | (missing) | | SerPlBld | 14:54:07 | [facility] | | | | | CKD-EPI 2020 | | - | | | | | | [facility] | | | | + + + +------+ + + + + | Result panel 12 | + + + + + +---------+ + + | BUN/Creat | 2025-07-27 | | 47.05 | (missing) | (missing) | | SerPl | 14:54:07 | [facility] | | | | + + + +---------+ + + + + | Result panel 13 | + + + + + +-------+ + + | Sodium | 2025-07-27 | | 139 | (missing) | (missing) | | SerPl-sCnc | 14:54:07 | [facility] | | | | + + + +-------+ + + + + | Result panel 14 | + + + + + +--------+ + + | Hct VFr.DF | 2025-07-27 | | 38.9 | (missing) | (missing) | | Bld Auto | 14:54:07 | [facility] | | | | + + + +--------+ + + + + | Result panel 15 | + + + + + +-------+ + + | Potassium | 2025-07-27 | | 4.6 | (missing) | (missing) | | SerPl-sCnc | 14:54:07 | [facility] | | | | + + + +-------+ + + + + | Result panel 16 | + + + + + +------+ + + | Chloride | 2025-07-27 | | 92 | (missing) | (missing) | | [facility] | 14:54:07 | [facility] | | | | + + + +------+ + + + + | Result panel 17 | + + + + + +------+ + + | CO2 | 2025-07-27 | | 47 | (missing) | (missing) | | SerPl-sCnc | 14:54:07 | [facility] | | | | + + + +------+ + + + + | Result panel 18 | + + + + + +-------+ + + | Anion Gap | 2025-07-27 | | 4.6 | (missing) | (missing) | | SerPl | 14:54:07 | [facility] | | | | | Calculated.4 | [facility] | | | | + + + +-------+ + + + + | Result panel 19 | + + + + + +--------+---------+ + | Calcium | 2025-07-27 | | 11.3 | mg/dL | (missing) | | [facility] | 14:54:07 | [facility] - [facility] | | | [facility] | | | | + + + +--------+---------+ + + + | Result panel 20 | + + + + + +-------+---------+ + | Magnesium | 2025-07-27 | | 2.0 | mg/dL | (missing) | | [facility] | 14:54:07 | [facility] | | | | + + + +-------+---------+ + + + | Result panel 21 | + + + + + +-------+ + + | Prot | 2025-07-27 | | 8.2 | (missing) | (missing) | | [facility] | 14:54:07 | [facility] | | | | + + + +-------+ + + + + | Result panel 22 | + + + + + +-------+ + + | Albumin | 2025-07-27 | | 3.5 | (missing) | (missing) | | [facility] | 14:54:07 | [facility] | | | | + + + +-------+ + + + + | Result panel 23 | + + + + + +-------+ + + | Globulin | 2025-07-27 | | 4.7 | (missing) | (missing) | | Ser-mCkaren | 14:54:07 | [facility] | | | | + + + +-------+ + + + + | Result panel 24 | + + + + + +--------+ + + | | 2025-07-27 | | 0.74 | (missing) | (missing) | | Albumin/Glob | 14:54:07 | [facility] | | | | | SerPl | [facility] | | | | + + + +--------+ + + + + | Result panel 25 | + + + + + +--------+ + + | RBC Auto | 2025-07-27 | | 98.2 | (missing) | (missing) | | | 14:54:07 | [facility] | | | | + + + +--------+ + + + + | Result panel 26 | + + + + + +-------+---------+ + | Bilirub | 2025-07-27 | | 0.5 | mg/dL | (missing) | | SerPl-mCnc | 14:54:07 | [facility] | | | | + + + +-------+---------+ + + + | Result panel 27 | + + + + + +------+ + + | AST | 2025-07-27 | | 25 | (missing) | (missing) | | [facility] | 14:54:07 | [facility] | | | | + + + +------+ + + + + | Result panel 28 | + + + + + +------+ + + | ALT | 2025-07-27 | | 17 | (missing) | (missing) | | SerPl-cCnc | 14:54:07 | [facility] | | | | + + + +------+ + + + + | Result panel 29 | + + + + + +------+ + + | ALP | 2025-07-27 | | 80 | (missing) | (missing) | | SerPl-cCnc | 14:54:07 | [facility] | | | | + + + +------+ + + + + | Result panel 30 | + + + + + +--------+ + + | Troponin I | 2025-07-27 | | 10.0 | (missing) | (missing) | | SerPl | 14:54:07 | [facility] | | | | | HS-mCnc [facility] | | | | + + + +--------+ + + + + | Result panel 31 | + + + + + +--------+ + + | MCH RBC Qn | 2025-07-27 | | 28.3 | (missing) | (missing) | | Auto | 14:54:07 | [facility] | | | | + + + +--------+ + + + + | Result panel 32 | + + + + + +--------+ + + | MCHC RBC | 2025-07-27 | | 28.8 | (missing) | (missing) | | Auto-EntMCnc | 14:54:07 | [facility] | | | | + + + +--------+ + + + + | Result panel 33 | + + + + + +-------+ + + | Platelet # | 2025-07-27 | | 250 | (missing) | (missing) | | Bld Auto | 14:54:07 | [facility] | | | | + + + +-------+ + + + + | Result panel 34 | + + + + + +--------+ + + | Neutrophils | 2025-07-27 | | 77.3 | (missing) | (missing) | | NFr Bld | 14:54:07 | [facility] | | | | | Auto | [facility] | | | | + + + +--------+ + + + + | Result panel 35 | + + + + + + + + + | Color Ur | 2025-07-27 | | YELLOW | (missing) | (missing) | | Auto | 15:29:07 | [facility] | | | | + + + + + + + + + | Result panel 36 | + + + + + +---------+ + + | Character | 2025-07-27 | | CLEAR | (missing) | (missing) | | Ur | 15:29:07 | [facility] | | | | + + + +---------+ + + + + | Result panel 37 | + + + + + + + + + | Glucose Ur | 2025-07-27 | | NEGATIVE | (missing) | (missing) | | Ql Strip | 15:29:07 | [facility] | | | | + + + + + + + + + | Result panel 38 | + + + + + + + + + | Rosita Alcala | 2025-07-27 | | NEGATIVE | (missing) | (missing) | | Ql Strip | 15:29:07 | [facility] | | | | + + + + + + + + + | Result panel 39 | + + + + + + + + + | Ketones Ur | 2025-07-27 | | NEGATIVE | (missing) | (missing) | | Ql Strip | 15:29:07 | [facility] | | | | + + + + + + + + + | Result panel 40 | + + + + + +---------+ + + | Sp Charly Alcala | 2025-07-27 | | 1.010 | (missing) | (missing) | | Strip | 15:29:07 | [facility] | | | | + + + +---------+ + + + + | Result panel 41 | + + + + + + + + + | Hgb Ur Ql | 2025-07-27 | | TRACE-I | (missing) | (missing) | | Strip | 15:29:07 | [facility] | | | | + + + + + + + + + | Result panel 42 | + + + + + +-------+ + + | pH Ur Strip | 2025-07-27 | | 7.0 | (missing) | (missing) | | | 15:29:07 | [facility] | | | | + + + +-------+ + + + + | Result panel 43 | + + + + + + + + + | Prot Ur | 2025-07-27 | | NEGATIVE | (missing) | (missing) | | Strip-mCnc | 15:29:07 | [facility] | | | | + + + + + + + + + | Result panel 44 | + + + + + + + + + | | 2025-07-27 | | NORMAL | (missing) | (missing) | | Urobilinogen | 15:29:07 | [facility] | | | | | Ur | [facility] | | | | + + + + + + + + + | Result panel 45 | + + + + + + + + + | Nitrite Ur | 2025-07-27 | | NEGATIVE | (missing) | (missing) | | Ql Strip | 15:29:07 | [facility] | | | | [facility] | | | | + + + + + + + + + | Result panel 46 | + + + + + +---------+ + + | Leukocyte | 2025-07-27 | | LARGE | (missing) | (missing) | | esterase Ur | 1529: | [facility] | | | | | Ql Strip | [facility] | | | | + + + +---------+ + + + + | Result panel 47 | + + + + + +-------+ + + | RBC #/area | 2025-07-27 | | 0-1 | (missing) | (missing) | | UrnS HPF | 15:29:07 | [facility] | | | | | | [facility] | | | | + + + +-------+ + + + + | Result panel 48 | + + + + + +---------+ + + | WBC #/area | 2025-07-27 | | 12-20 | (missing) | (missing) | | Garett HPF | 15:29:07 | [facility] | | | | [facility] | | | | + + + +---------+ + + + + | Result panel 49 | + + + + + +-----+ + + | Epi Cells | 2025-07-27 | | 0 | (missing) | (missing) | | #/area UrnS | 15:29:07 | [facility] | | | | | HPF | [facility] | | | | + + + +-----+ + + + + | Result panel 50 | + + + + + + + + + | Crystals | 2025-07-27 | | NONE SEEN | (missing) | (missing) | | FredricknS Micro | 15:29:07 | [facility] | | | | | | [facility] | | | | + + + + + + + + + | Result panel 51 | + + + + + +------+ + + | Bacteria | 2025-07-27 | | 4+ | (missing) | (missing) | | #/area UrnS | 15:29:07 | [facility] | | | | | HPF | [facility] | | | | + + + +------+ + + + + | Result panel 52 | + + + + + + + + + | Casts | 2025-07-27 | | NONE SEEN | (missing) | (missing) | | #/area UrnS | 15:29:07 | [facility] | | | | | LPF | [facility] | | | | + + + + + + + + + | Result panel 53 | + + + + + +-------+ + + | Bacteria Ur | 2025-07-27 | | Yes | (missing) | (missing) | | Cult | 15:29:07 | [facility] | | | | | | [facility] | | | | + + + +-------+ + + + + | Result panel 54 | + + + + + +--------+ + + | Urn Spec | 2025-07-27 | | CATH | (missing) | (missing) | | Collect Meth | 15:29:07 | [facility] | | | | | Ur | [facility] | | | | + + + +--------+ + + + + | Result panel 55 | + + + + + + + + + | Bacteria Ur | 2025-07-27 | | | (missing) | (missing) | | Cult | 15:33:07 | [facility] | [facility] | | | | | [facility] | | | | + + + + + + + Social History +--------+ + + | date | description | facility | +--------+ + + Vital Signs + + + +---------+ | date | measurement | value | units | + + + +---------+ | 2025-07-27 00:00 | BMI | 16.3 | kg/m2 | + + + +---------+ | 2025-07-27 00:00 | BP_diastolic | 66 | mmHg | + + + +---------+ | 2025-07-27 00:00 | BP_systolic | 173 | mmHg | + + + +---------+ | 2025-07-27 00:00 | heart_rate | 92 | /min | + + + +---------+ | 2025-07-27 00:00 | height_metric | 162.56 | cm | + + + +---------+ | 2025-07-27 00:00 | height_standard | 64 | in | + + + +---------+ | 2025-07-27 00:00 | o2_saturation | 99 | % | + + + +---------+ | 2025-07-27 00:00 | respiration_rate | 16 | /min | + + + +---------+ | 2025-07-27 00:00 | | 97.9 | F | | | temperature_standar | | | | | d | | | + + + +---------+ | 2025-07-27 00:00 | weight_metric | 43.1 | kg | + + + +---------+ | 2025-07-27 00:00 | weight_standard | 95.018 | lb | + + + +---------+ | 2025-08-11 00:00 | BMI | 15.3 | kg/m2 | + + + +---------+ | 2025-08-11 00:00 | BP_diastolic | 69 | mmHg | + + + +---------+ | 2025-08-11 00:00 | BP_systolic | 134 | mmHg | + + + +---------+ | 2025-08-11 00:00 | heart_rate | 85 | /min | + + + +---------+ | 2025-08-11 00:00 | height_metric | 162.56 | cm | + + + +---------+ | 2025-08-11 00:00 | height_standard | 64 | in | + + + +---------+ | 2025-08-11 00:00 | o2_saturation | 98 | % | + + + +---------+ | 2025-08-11 00:00 | respiration_rate | 18 | /min | + + + +---------+ | 2025-08-11 00:00 | | 99 | F | | | temperature_standar | | | | | d | | | + + + +---------+ | 2025-08-11 00:00 | weight_metric | 40.5 | kg | + + + +---------+ | 2025-08-11 00:00 | weight_standard | 89.287 | lb | + + + +---------+"
--- OUTSIDE RECORDS SUMMARY | 2025-08-17 12:24 | XMS ---
PreManage Notification: EFREM MCCLELLAN Security Clinical Trials Data Coordinator Events No recent Security Events currently on file CRITERIA MET - [facility] - 2 Visits in 30 Days CARE PROVIDERS CURTIS CARLOS Physician Machine Setup Operator 11/05/2019-Current PHONE: Unknown KAYLIE SCHAEFER Senior Project Manager Engineering: Foot \T\ Ankle Surgery Current PHONE: [phone] TAISHA SALAS Senior Project Manager Engineering Bart Angel PHONE: [phone] KEERTHI CALLEJAS Internal Medicine Current PHONE: Unknown KALYN PARMAR Nurse Practitioner: Family Current PHONE: [phone] PARAG MAYORGA Nurse Practitioner: Family Current PHONE: [phone] NAHOMY GILL Internal Medicine Current PHONE: [phone] CATHY HUIZAR Internal Medicine Current PHONE: [phone] ANDRY VAZQUEZ I. Physician Machine Setup Operator Current PHONE: Unknown CRISSY URBAN Nurse Practitioner Current PHONE: Unknown LORETA LEO Nurse Practitioner Current PHONE: [phone] DAWIT PEÑALOZA [facility] Current PHONE: Unknown MOISES VALENTIN Nurse Practitioner: Family Current PHONE: Unknown LEYLA JOE Physician Machine Setup Operator Current PHONE: Unknown Susu has no Care Guidelines for this patient. Ashish VISIT COUNT (12 MO.) 6 JUSTYNA Corea TOTAL 6 NOTE: Visits indicate total known visits. ED/UCC VISIT TRACKING (12 MO.) 08/17/2025 12:18 JUSTYNA Sharif [place] TYPE: Emergency COMPLAINT: - SHORTNESS OF BREATH 08/11/2025 11:08 JUSTYNA Sharif [place] TYPE: Emergency COMPLAINT: - WOUND CHECK DIAGNOSES: - Actinic keratosis - Allergy status to other drugs, medicaments and biological substances - Allergy status to penicillin - Chronic obstructive pulmonary disease, unspecified - Encounter for change or removal of nonsurgical wound dressing - Other manager long term care (current) drug therapy 07/27/2025 14:18 JUSTYNA Sharif [place] TYPE: Emergency COMPLAINT: - SWALLOWING PROBLEM DIAGNOSES: - Allergy status to narcotic agent - Allergy status to penicillin - Bed confinement status - Chronic obstructive pulmonary disease with (acute) exacerbation - Dependence on supplemental oxygen - Dysphagia, unspecified - Hormone replacement therapy - Other prison (current) drug therapy - Other nonmedicinal substance allergy status - Personal history of nicotine dependence - Shortness of breath - Urinary tract infection, site not specified 03/13/2025 14:06 JUSTYNA Sharif [place] TYPE: Emergency COMPLAINT: - WEAKNESS DIAGNOSES: - Allergy status to penicillin - Chronic obstructive pulmonary disease, unspecified - FDC (current) use of antibiotics - Other manager long term care (current) drug therapy - Personal history of nicotine dependence - Urinary tract infection, site not specified - Weakness 02/24/2025 13:35 JUSTYNA Sharif [place] TYPE: Emergency COMPLAINT: - RIB PAIN DIAGNOSES: - Allergy status to analgesic agent - Allergy status to other antibiotic agents - Allergy status to penicillin - Chest pain, unspecified - Chronic obstructive pulmonary disease, unspecified - manager long term care (current) use of systemic steroids - Other prison (current) drug therapy - Other nonmedicinal substance [...] - Hypothyroidism, unspecified - Hypothyroidism, unspecified - manager long term care (current) use of inhaled steroids - FDC (current) use of inhaled steroids - Other prison (current) drug therapy - Other manager long term care (current) drug therapy - Other specified postprocedural states - Other specified postprocedural states - Personal history of nicotine dependence - Personal history of nicotine dependence - Pneumonia, unspecified organism - Shortness of breath - Unspecified bacterial pneumonia - Unspecified bacterial pneumonia - Unspecified severe protein-calorie malnutrition - Unspecified severe protein-calorie malnutrition [email or web address]
[2025-08-17] MEDS ORDERED: ALBUTEROL/IPRATROPIUM 3 ML NEB INH PRN (12:30)
[2025-08-17 12:44] LABS: BASOPHILS 0.2 % (0.1-1.2); EOSINOPHILS 1.3 % (0.7-5.8); LYMPHOCYTES 7.1 % (19.3-51.7); MCH 28.8 PG (25.6-32.2); MCHC 29.2 g/dL (32.2-35.5); MCV 98.7 fL (79.4-94.8); MONOCYTES 8.6 % (4.7-12.5); NEUTROPHILS 82.6 % (34.0-71.1); RBC 3.71 M/uL (3.93-5.22)
[2025-08-17] MEDS ORDERED: ALBUTEROL/IPRATROPIUM 3 ML NEB INH ONE (12:45)
[2025-08-17 13:06] LABS: ALT (SGPT) 12.0 U/L (14-59); AST (SGOT) 17.0 U/L (15-37); GLOMERULAR FILTRATION RATE,EST 89.0 mL/min (>60); PROTEIN, TOTAL 7.1 g/dL (6.4-8.2); UREA NITROGEN 19.0 mg/dL (7-18)
[2025-08-17 15:38] VITALS: BP 112/55
--- NOTE | 2025-08-19 07:39 | EKG ---
[facility] [address] [place], [place] [address] Signed Suspect arm lead reversal, interpretation assumes no reversal Normal sinus rhythm Right atrial enlargement Rightward axis Biventricular hypertrophy Possible Anterior infarct , age undetermined Abnormal ECG No previous ECGs available Confirmed by Murphy Scanlon DO ([id number]) on 08/19/2025 7:39:07 AM Electronically Signed By: MURPHY SCANLON DO 08/19/25 0739 PATIENT NAME: EFREM MCCLELLAN Electrocardiogram DATE OF : 39 PHYSICIAN: MURPHY SCANLON DO REPORT #: [id number] REPORT IS CONFIDENTIAL AND NOT TO BE RELEASED WITHOUT AUTHORIZATION
--- NOTE | 2025-08-19 07:39 | EKG ---
[facility] [address] [facility] [facility] [place] [address] Signed Suspect arm lead reversal, interpretation assumes no reversal Normal sinus rhythm Right atrial enlargement Rightward axis Biventricular hypertrophy Possible Anterior infarct , age undetermined Abnormal ECG When compared with ECG of 27-JUL-2025 15:08, Minimal criteria for Inferior infarct are no longer present Confirmed by Ion Scanlon DO ([id number]) on 08/19/2025 7:39:02 AM Electronically Signed By: ION SCANLON DO 08/19/25 0739 PATIENT NAME: EVA MCCLELLANSHEELA HOYT Electrocardiogram DATE OF : 39 PHYSICIAN: ION SCANLON DO REPORT #: [id number] REPORT IS CONFIDENTIAL AND NOT TO BE RELEASED WITHOUT AUTHORIZATION
== END 2025-08-17 15:30 | disposition home or self-care (01) ==
LOC: ED 12:17
PROVIDERS: Emergency Medicine
DX: R06.02 Shortness of breath (principal); J45.909 Unspecified asthma, uncomplicated; Z87.891 Personal history of nicotine dependence; Z88.0 Allergy status to penicillin; Z88.8 Allergy status to other drugs, medicaments and biological substances; Z79.899 Other long term (current) drug therapy
CPT/HCPCS: 36415; 71045; 80053; 83735; 83880; 84484; 85025; 93005; 93010; 94640; 96374; 99285-25; J2919